=== PATIENT | female | born 1950 | race Caucasian/White ===

== ENCOUNTER 2022-05-11 10:02 | Outpatient (CLI) | payer MEDICARE, BC, SELFPAY ==
[2022-05-11 13:08] LABS: Albumin* 3.4 g/dL (3.3-5.0); Chloride* 91 mmol/L (96-114); Sodium* 127 mmol/L (135-149)
[2022-05-11 13:10] LABS: Creatinine* 0.6 mg/dL (0.5-1.5); Estimated Glomerular Filt Rate 94.13
[2022-05-11 13:11] LABS: Alanine Aminotransferase* 27 U/L (4-35); Alkaline Phosphatase* 67 U/L (40-150); Aspartate Amino Transferase* 27 U/L (12-35); Bilirubin Total* 0.8 mg/dL (0.1-1.5); Blood Urea Nitrogen* 33 mg/dL (7-30); Carbon Dioxide* 32 mmol/L (20-32); Glucose* 117 mg/dL (60-115); Total Protein* 5.9 g/dL (6.0-8.3)
[2022-05-11 13:12] LABS: Calcium* 8.5 mg/dL (8.4-10.6)
[2022-05-11 13:26] LABS: Potassium* 6.4 mmol/L (3.6-5.1)
== END 2022-05-11 10:03 | disposition home or self-care (01) ==
PROVIDERS: PCP Family Medicine; Visit Provider Family Medicine
DX: Z01.818 Encounter for other preprocedural examination (principal); I48.91 Unspecified atrial fibrillation; E87.1 Hypo-osmolality and hyponatremia; I10 Essential (primary) hypertension
CPT/HCPCS: 80053

== ENCOUNTER 2022-05-28 08:09 | Outpatient (CLI) | payer MEDICARE, BC, SELFPAY ==
[2022-05-28 10:06] LABS: Chloride* 88 mmol/L (96-114); Sodium* 125 mmol/L (135-149)
[2022-05-28 10:09] LABS: Blood Urea Nitrogen* 8 mg/dL (7-30); Carbon Dioxide* 33 mmol/L (20-32); Creatinine* 0.3 mg/dL (0.5-1.5); Estimated Glomerular Filt Rate 111 ml/min; Glucose* 126 mg/dL (60-115)
[2022-05-28 10:10] LABS: Calcium* 8.1 mg/dL (8.4-10.6)
== END 2022-05-28 08:10 | disposition home or self-care (01) ==
PROVIDERS: PCP Family Medicine; Visit Provider Family Medicine
DX: E87.5 Hyperkalemia (principal); R53.83 Other fatigue
CPT/HCPCS: 80048

== ENCOUNTER 2022-06-22 10:00 | Outpatient (CLI) | payer MEDICARE, BC, SELFPAY ==
[2022-06-22 12:48] LABS: Albumin* 3.5 g/dL (3.3-5.0); Chloride* 89 mmol/L (96-114); Sodium* 128 mmol/L (135-149)
[2022-06-22 12:51] LABS: Alanine Aminotransferase* 25 U/L (4-35); Alkaline Phosphatase* 91 U/L (40-150); Aspartate Amino Transferase* 23 U/L (12-35); Bilirubin Total* 0.5 mg/dL (0.1-1.5); Blood Urea Nitrogen* 18 mg/dL (7-30); Carbon Dioxide* 33 mmol/L (20-32); Creatinine* 0.5 mg/dL (0.5-1.5); Estimated Glomerular Filt Rate 98 ml/min; Glucose* 96 mg/dL (60-115); Potassium* 4.8 mmol/L (3.6-5.1)
[2022-06-22 12:52] LABS: Calcium* 8.5 mg/dL (8.4-10.6)
== END 2022-06-22 10:01 | disposition home or self-care (01) ==
LOC: NFLDREF 10:52
PROVIDERS: PCP Family Medicine; Visit Provider Family Medicine
DX: I10 Essential (primary) hypertension (principal); Z98.890 Other specified postprocedural states
CPT/HCPCS: 80053

== ENCOUNTER 2022-06-23 09:00 | Outpatient (RCR) | payer MEDICARE, BC, SELFPAY ==
[2022-05-31 14:38] LABS: Chloride* 91 mmol/L (96-114); Sodium* 130 mmol/L (135-149)
[2022-05-31 14:39] LABS: Potassium* 4.2 mmol/L (3.6-5.1)
[2022-05-31 14:41] LABS: Carbon Dioxide* 35 mmol/L (20-32); Creatinine* 0.5 mg/dL (0.5-1.5); Estimated Glomerular Filt Rate 98 ml/min
[2022-05-31 14:42] LABS: Blood Urea Nitrogen* 16 mg/dL (7-30); Calcium* 8.6 mg/dL (8.4-10.6); Glucose* 114 mg/dL (60-115)
== END 2022-08-11 14:01 | disposition home or self-care (01) ==
PROVIDERS: PCP Family Medicine; Visit Provider Family Medicine
DX: M54.9 Dorsalgia, unspecified (principal); Z51.89 Encounter for other specified aftercare
CPT/HCPCS: 36415; 80048; 97110; 97140; 97162; 97530

== ENCOUNTER 2022-06-29 12:23 | Outpatient (CLI) | payer MEDICARE, BC, SELFPAY ==
[2022-06-29 17:13] LABS: Chloride* 89 mmol/L (96-114); Creatinine* 0.6 mg/dL (0.5-1.5); Estimated Glomerular Filt Rate 94 ml/min; Potassium* 4.4 mmol/L (3.6-5.1); Sodium* 128 mmol/L (135-149)
[2022-06-29 17:14] LABS: Blood Urea Nitrogen* 22 mg/dL (7-30); Calcium* 8.4 mg/dL (8.4-10.6); Carbon Dioxide* 35 mmol/L (20-32); Glucose* 161 mg/dL (60-115)
== END 2022-06-29 12:24 | disposition home or self-care (01) ==
PROVIDERS: PCP Family Medicine; Visit Provider Family Medicine
DX: R30.0 Dysuria (principal); E87.1 Hypo-osmolality and hyponatremia
CPT/HCPCS: 80048; 87086

== ENCOUNTER 2022-07-07 13:56 | Outpatient (CLI) | payer MEDICARE, BC, SELFPAY ==
[2022-07-07 14:47] LABS: Chloride* 91 mmol/L (96-114); Potassium* 4.5 mmol/L (3.6-5.1); Sodium* 135 mmol/L (135-149)
[2022-07-07 14:50] LABS: Carbon Dioxide* 39 mmol/L (20-32); Creatinine* 0.6 mg/dL (0.5-1.5); Estimated Glomerular Filt Rate 94 ml/min
[2022-07-07 14:51] LABS: Blood Urea Nitrogen* 32 mg/dL (7-30); Calcium* 8.6 mg/dL (8.4-10.6); Glucose* 158 mg/dL (60-115)
== END 2022-07-07 13:57 | disposition home or self-care (01) ==
LOC: NFLDREF 14:02
PROVIDERS: PCP Family Medicine; Visit Provider Family Medicine
DX: E87.1 Hypo-osmolality and hyponatremia (principal); E66.9 Obesity, unspecified; I10 Essential (primary) hypertension
CPT/HCPCS: 80048

== ENCOUNTER 2022-07-27 09:53 | Outpatient (CLI) | payer MEDICARE, BC, SELFPAY ==
--- OUTSIDE RECORDS SUMMARY | 2022-08-19 21:49 | XMS_ITS | Clinical Summary ---
:1950 Author Organization [facility] Address [address] [place] [address] Care Team Providers Name Role Phone Unavailable Primary Care Provider Unavailable Source Comments Patient records contain information from all sites at [facility]. For routine questions regarding patient records, call [phone] during business hours, M-F 8:00 AM - 5:00 PM Central Time. Record requests for emergency care only can be directed to [phone] at any time.[facility] Allergies Active Allergy Reactions Severity Noted Date Comments Hydrochlorothiazide GI intolerance 07/20/2022 Hydrocortisone Other (see comments) 02/21/2019 Medications Medication Sig Dispensed Refills Start Date End Date Status metoprolol Take 50 mg by 0 02/21/2019 Acti ve succinate mouth. (TOPROL-XL) 100 mg 24 hr tablet dilTIAZem Take 240 mg by 0 04/11/2019 Acti ve (TIAZAC/TAZTIA XT) mouth. 240 mg ER capsule warfarin (COUMADIN) Take 10 mg by 0 Active 10 mg tablet mouth. lisinopriL Take 2 tablets by 0 02/12/2019 Active (PRINIVIL,ZESTRIL) mouth daily. 20 mg tablet calcium carbonate 2 (two) times a 0 Active (OS-ANGELA) 1,250 mg day. (500 mg calcium) tablet potassium chloride Take 2 tablets (20 360 tablet 3 07/20/2022 07/20/2023 Active (KLOR-CON M) 10 mEq mEq total) by ER tablet mouth 2 (two) times a day with meals. Use 2 BID if 40 mg of torsemide BID torsemide (DEMADEX) Take 2 tablets (40 360 tablet 3 07/20/2022 07/20/2023 Active 20 mg tablet mg total) by mouth 2 (two) times a day. Usual dose 40 mg in am 20 mg in PM with chf increase as directed Active Problems Problem Noted Date Hyponatremia 07/20/2022 Fracture T7-8 Wedge Compression Closed Initial 022 Hypertension And Chronic Kidney Disease Stage 1 2021 Anticoagulant Therapy 07/20/2022 Other Heart Failure 07/20/2022 Loss Hearing Sensorineural Bilateral 06/14/2019 Atrial Fibrillation Longstanding Persistent 02/20/2019 Encounters Date Type Specialty Care Team Description 07/20/2022 External Outreach Nephrology and [place], Hyponatr emia (Primary Dx); Hypertension Ion Tamayo [...] e / Group Dates MEDICARE MEDICARE A [id number] 2013-Pres [address] [place] [address] BLUE CROSS BCBS [place] [id number] 2021-Pres [phone] [address] Cost Share BLUE SHIELD BLUE COST ent [phone] [place] [address]
--- OUTSIDE RECORDS SUMMARY | 2022-08-19 21:49 | XMS_ITS | Encounter Summary ---
:1950 Author Organization [facility] Address [address] [place] [address] Care Team Providers Name Role Phone Unavailable Primary Care Provider Unavailable Reason for Visit Appointment Request (Routine) - Closed Specialty Diagnoses / Procedures Referred By Contact Refer red To Contact Nephrology and Yoselyn Dewitt, Hypertension [address] [place] [address] Referral ID Status Reason Start Date Expiration Date Visits Requ ested Visits Authorized [id number] Closed 07/14/2022 07/14/2023 1 Encounter Details Date Type Department Care Team Description 07/20/2022 External Outreach Division of Arthur Donahue (Primary Dx); Nephrology and Ion Tamayo Jr., Other Heart Failure ([facility]); Hypertension in D.O. Atrial Fibrillation Longstanding Persist ent ([facility]); [place], [place] [address] [facility] Hypertension And Chronic Kidney Disease Stage 1; [address] [place], [place] Fracture T7-8 Wedge Compress ion Closed Initial ([facility]); [place] [address] Anticoagulant Therapy; [id number] Loss Hearing Sensorineural B ilateral Social History [...] Provider: DR Dewitt SUBJECTIVE REASON FOR VISIT [place] [facility] Consultation regards hyponatremia, [...] back in 2005 when I note that [place] records demonstrate serumsodium of 136 mEq per [...] in a supervised living environment her close friend/heating mechanic, Natalie, a retired pharmacist helps care for her. She orchestrate the patient's medications. 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 There is some documentation [...] cardiorenal perspective. #3 Atrial Fibrillation Longstanding Persistent ([facility]) Her heart rate is well controlled, she is on oral anticoagulation with an INR of 1.8. 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 Please see above discussion #5 Fracture T7-8 Wedge Compression Closed Initial ([facility]) Some of her acute pain may be [...] Failure (HCC) Atrial Fibrillation Longstanding Persist ent ([facility]) Hypertension And Chronic Kidney Disease Stage 1 Fracture T7-8 Wedge Compression Closed I nitial (HCC) Anticoagulant Therapy Loss Hearing Sensorineural Bilateral documented in this encounter
--- OUTSIDE RECORDS SUMMARY | 2022-08-19 21:50 | XMS_ITS | Clinical Summary ---
:1950 Author Organization [facility] [place] [address] Care Team Providers Name Role Phone Yoselyn Dewitt MD Primary Care Provider [phone] Allergies Active Allergy Reactions Severity Noted [...] Group MEDICARE PART A MEDICARE PART A [id number] 2013-Presen ATTN: CLAIMS - HB USE ONLY HB ONLY t [address] [place] [address] MEDICARE PART B MEDICARE PART B [id number] 2013-Presen ATTN: CLAIMS - HB USE ONLY HB ONLY t [address] [place] [address] BLUE CROSS [employer] [id number] 2021-Pres [address] [address] [place], [place] ONLY [id number] (Work) [address] Advance Directives Latest Code Status on File [...] 11:48 AM 02/21/2019 5:24 PM Care Teams Seismic Survey Assistant Relationship Specialty Start Date End Date Yoselyn Dewitt MD PCP - General Family Practice 02/21/191999 [place] [address]
== END 2022-07-27 09:54 | disposition home or self-care (01) ==
LOC: AMB 08-19 21:48
PROVIDERS: PCP Family Medicine; Visit Provider Family Medicine
DX: R53.1 Weakness (principal)
CPT/HCPCS: A0998

== ENCOUNTER 2022-08-02 08:59 | Outpatient (CLI) | payer MEDICARE, BC, SELFPAY ==
--- OUTSIDE RECORDS SUMMARY | 2022-08-02 09:13 | XMS_ITS | Clinical Summary ---
:1950 Author Organization [facility] [place] [address] Care Team Providers Name Role Phone Yoselyn Dewitt MD Primary Care Provider [phone] Allergies Active Allergy Reactions Severity Noted Date Comments Hydrocortisone *Unknown 02/21/2019 Medications Medication Sig Dispensed Refills Start Date End Date Status albuterol HFA Every 4 Hours as 0 06/25/2018 Active (PROVENTIL HFA) 90 needed mcg/actuation inhaler calcium carbonate Twice A Day 0 Active (OS-ANGELA 500) 500 mg calcium (1,250 mg) tablet lisinopril (PRINIVIL; Take 1 tablet by 0 02/12/2019 Active ZESTRIL) 20 mg tablet mouth once daily. digoxin (LANOXIN) 125 Take 1 tablet by 0 02/12/2019 Active mcg tablet mouth once daily. metoprolol succinate Take 0.5 tablets 0 02/21/2019 Active (TOPROL XL) 100 mg by mouth once Sustained-Release daily. tabletIndications: Persistent atrial fibrillation (HC), Hypertension, unspecified type amLODIPine (NORVASC) 3 03/19/2019 Active 10 mg tablet diltiazem CD (CARDIZEM Take 1 capsule by 30 capsule 2 04/11/20 19 Active CD) 240 mg extended mouth once daily release 24 hr before a meal. capsuleIndications: Persistent atrial fibrillation (HC), Hypertension, unspecified type torsemide (DEMADEX) 20 Take 1 tablet by 0 01/13/2021 Active mg tabletIndications: mouth 2 times Persistent atrial daily. fibrillation (HC) polyethylene glycoL Mix 1 scoop in 0 Active (Miralax) 17 gram/dose liquid then take powder by mouth once daily if needed for Constipation. warfarin (COUMADIN) 10 Take 10 mg by 0 Active mg tablet mouth once daily. / warfarin (COUMADIN) Take 7.5 mg by 0 Active 7.5 mg tablet mouth once daily. Sun/Tue/Tue/Tue/S at Active Problems Problem Noted Date Sensorineural hearing loss, bilateral 06/14/2019 Persistent atrial fibrillation 02/20/2019 Hypertension 02/20/2019 Encounters Date Type Specialty Care Team Description 05/12/2022 Anesthesia Event Parth Celis MD 05/12/2022 Surgery Arcenio Sanchez ENDOSCOPIC R ETROGRADE MD Buzz CHOLANGIOPANCRE ATOGRAPHY 05/12/2022 Hospital Arcenio Sanchez Choledocholi thiasis Encounter MD Buzz 05/12/2022 Travel from Last 3 Months Immunizations Name Administration Dates Next Due Influenza, Inactivated AIIV4 (Age 65+ Years) Preserv 021 Free Social History Tobacco Use Types Packs/Day Years Used Date Never Smoker Smokeless Tobacco: Never Used Tobacco Cessation: Counseling Given: Yes Alcohol Use Standard Drinks/Week Comments No 0 (1 standard drink = 0.6 oz pure alcoho l) Sex Assigned at Date Recorded Not on file Obstetrics History Last Filed Vital Signs Vital Sign Reading Time Taken Comments Blood Pressure 183/77 05/12/2022 11:45 AM CDT Pulse 84 05/12/2022 11:45 AM CDT Temperature 36.5 ??C (97.7 ??F) 05/12/2022 11:00 AM CDT Respiratory Rate 20 05/12/2022 11:45 AM CDT Oxygen Saturation 96% 05/12/2022 11:45 AM CDT Inhaled Oxygen Concentration - - Weight 78.5 kg (173 lb) 05/12/2022 7:53 AM CDT Height 149.9 cm (4' 11) 05/12/2022 7:53 AM CDT Body Mass Index 34.94 05/12/2022 7:53 AM CDT Plan of Treatment Health Maintenance Due Date Last Done Comments Tdap 1959 Depression screening for age 12+ 1960 Hepatitis C screening for age 18-79 1966 Tetanus booster 1968 Colonoscopy through age 75 1993 Lipids for age 45-75 1993 Mammogram for age 45-75 1993 Zoster (shingles) series for age 50+ 1998 (1 of 2) DEXA/DXA scan for age 65+ 2013 Medicare Wellness for age 65+ 2013 Pneumococcal series for age 65+ (1 - 2013 PCV) BMI (ht and wt on same day) for age 0111/15/2019 11/15/2018, 12/13/2015 18+ Influenza for age 65+ 07/15/2022 08/18/2021 COVID-19 vaccine series (4 - Booster 07/18/2022 03/17/2022, 09/08/2021, for Pfizer series) 12/30/2020 Procedures Procedure Name Priority Date/Time Associated Diagnosis Comme nts XR ERCP BILIARY ONLY Routine 05/12/2022 Choledocholithiasis Results for 10:51 AM CDT this procedure are in the results section. ENDOTRACHEAL TUBE Routine 05/12/2022 Results fo r 10:22 AM CDT this procedure are in the results section. ENDOTRACHEAL TUBE Routine 05/12/2022 Results fo r 10:22 AM CDT this procedure are in the results section. ENDOTRACHEAL TUBE Routine 05/12/2022 Results fo r 10:22 AM CDT this procedure are in the results section. ENDOSCOPIC ULTRASOUND youth care worker 2 05/12/2022 See MD notes 10:02 AM CDT ENDOSCOPIC RETROGRADE Tier 2 05/12/2022 See notes CHOLANGIOPANCREATOGRAPHY 10:02 AM CDT ENDOSCOPY 05/12/2022 Results for 9:51 AM CDT this procedure are in the results section. POTASSIUM STAT 05/12/2022 Results for 8:54 AM CDT this procedure are in the results section. SODIUM STAT 05/12/2022 Results for 8:54 AM CDT this procedure are in the results section. LIPASE Preop 05/12/2022 Results for 8:54 AM CDT this procedure are in the results section. HEPATIC FUNCTION PANEL Preop 05/12/2022 Resul ts for 8:54 AM CDT this procedure are in the results section. ENDOSCOPY 05/12/2022 Results for 8:25 AM CDT this procedure are in the results section. from Last 3 Months Results XR ERCP BILIARY ONLY (05/12/2022 10:51 AM CDT) Anatomical Region Laterality Modality GALLBLADDER, PANCREAS, LIVER Radio Fluor oscopy Specimen (Source) Anatomical Collection Method Collection Time Re ceived Time Location / / Volume Laterality 05/12/2022 11:01 AM CDT Impressions 05/12/2022 11:01 AM CDT ERCP as detailed above. Dictated by Yunier Meléndez MD @ May 12 2022 11:01AM (Electronically Signed) ?? Narrative 05/12/2022 11:01 AM CDT For Patients: ??As a result of the Cures Act, medical imaging exams and procedure report s are released immediately into your [facility] medical record. ??You may view this report before your referring provider. ??If you have questions, please contact your health care provider. INDICATION: Common bile duct stone. FINDINGS: Multiple images from an ERCP have been o btained. Please see the endoscopy report. The common bile duct is dilated. There are multiple filling defects identified. There has been placement of a balloon fo r removal of common bile duct stones. Fi nal image demonstrates a dilated common bile duct but no significant filling defects. Fluoroscopy time: 2 minutes and 22 secon ds. Procedure Note Yunier Meléndez MD - 05/12/2022Format ting of this note might be different from the original. For Patients: As a result of the Cures Act, medical imaging exams and procedure reports are released immediately into your electronic medical record. You may view this report before your referring provider. If you have questions, please contact the [facility] health care provider. INDICATION: Common bile duct stone. FINDINGS: Multiple images from an ERCP have been o btained. Please see the endoscopy report. The common bile duct is dilated. There are multiple filling defects identified. There has been placement of a balloon for removal of common bile duct stones. Final image dem onstrates a dilated common bile duct but no significant filling defects. Fluoroscopy time: 2 minutes and 22 secon ds. IMPRESSION: ERCP as detailed above. Dictated by Yunier Meléndez MD @ May 12 2022 11:01AM (Electronically Signed) Arcenio Sanchez MD FLUOROSCOPY HCHG TUBE PR1, HCHG KIT CO2 DETECTOR PR5, HCHG STYLET PR1 (05/12/2022 10:22 AM CDT) Narrative Clau Curtis CRNA - 05/12/2022 10:22 AM CDT Clau Curtis CRNA ? 05/12/2022 10:22 AM Procedure: ETT Patient location during procedure: proce dure room ETT Properties Mask Ventilation: easy Final Technique: direct laryngoscopy Type: straight Location: oral Cuffed: yes Tube Size: 7.0 mm Stylet: yes Laryngoscope Blade: Mac Blade Size: 3 Cormack-Lehane Grade View: 1 Insertion Attempts: 1 Placement Verification: auscultation, en d tidal CO2, symmetrical chest wall movement and cuff palpation Assessment: pharynx clear, atraumatic an d dentition unchanged Secured at: 22 Measured From: lips Electronically signed by Praveen Curtis CRNA ? Parth Celis MD ANESTHESIA PX NOTE ORDERA BLES ENDOSCOPY (05/12/2022 9:51 AM CDT) Specimen (Source) Anatomical Collection Method Collection Time Re ceived Time Location / / Volume Laterality 05/12/2022 9:51 AM CDT Narrative This result has an attachment that is no t available. Transcriptions Arcenio Sanchez MD - 05/12/2022 11:11 AM CDT [facility] Patient Name: Lucila Mcgregor re Date: 05/12/2022 Gender: Female Date of : 1950 Admit Type: Ambulatory Procedure: ERCP Proceduralist: MD [facility] Indications/Pre-Op Diagnosis: Bile duct stone(s) Medications: General Anesthesia Procedure Description: Risk of bleeding, infection, perforatio n, pancreatitis, need for surgery, remote chance of and alt ernatives were discussed, and the patient gave informed consent. The [facility]-[id number] endoscope was pas sed through the mouth, and advanced to the duodenum and used to in ject contrast into the bile duct. The ERCP was accomplished without diffi culty. The patient tolerated the procedure well. Complications: No immediate complication s. Estimated Blood Loss & Specimen: Estimated blood loss: none. Specimen collected: None Findings: The scope was passed under direct visio n through the upper GI tract. The entire examined stomach was normal. The examined duodenum was normal. The major papilla was normal. The bile duct was deeply cannulated with the short-nosed traction sphincterotome and guidewire. Contrast was injected. I personally interpreted the bile duct images. There was brisk flow of contrast through the ducts. Gisele ge quality was adequate. Contrast extended to the hepatic ducts. The lowe r third of the main bile duct contained two stones, the largest of wh ich was 10 mm in diameter. Biliary sphincterotomy was made with a traction (standard) sphincterotome. There was no post-sphin cterotomy bleeding. The biliary tree was swept with a 9 mm balloon star ting at the bifurcation. Two stones were removed. No stones remained . Impressions/Post-Op Diagnosis: - Choledocholithiasis was found. Comple te removal was accomplished by biliary sphincterotomy and balloon extr action. Recommendation: - Watch for pancreatitis, bleeding, per foration, and cholangitis. Arcenio Sanchez MD 05/12/2022 11:11:42 AM This report has been signed electronical ly. Note Initiated On: 05/12/2022 9:51 AM Arcenio Sanchez MD PROCEDURE ORD (ABNORMAL) SODIUM (05/12/2022 8:54 AM CDT) athologist Signature SODIUM 130 (L) 135 - 145 05/12/2022 [facility] mmol/L 9:26 AM [facility] Specimen Anatomical Collection Method Collection Time Receive d Time (Source) Location / / Volume Laterality Blood BLOOD SPECIMEN / Butterfly / 05/12/2022 8:54 AM 05/12 9:01 Unknown Unknown CDT AM CDT Casimiro Celis MD CHEMISTRY Performing Organization Address City/[facility]/ZIP Code Phon e Number [facility] [phone] [place] [id number] LABORATORY-[facility] 2000 LABORATORY (ABNORMAL) POTASSIUM (05/12/2022 8:54 AM CDT) athologist Signature POTASSIUM 5.1 (H) 3.5 - 5.0 05/12/2022 [facility] mmol/L 9:26 AM CD[facility] Specimen Anatomical Collection Method Collection Time Receive d Time (Source) Location / / Volume Laterality Blood BLOOD SPECIMEN / Butterfly / 05/12/2022 8:54 AM 05/12 9:01 Unknown Unknown CDT AM CDT Casimiro Celis MD CHEMISTRY Performing Organization Address City/State/ZIP Code Phon e Number [facility] [address] [place] [id number] LABORATORY-CENTRAL 2000 LABORATORY LIPASE (05/12/2022 8:54 AM CDT) athologist Signature LIPASE 20.1 8.0 - 78.0 05/12/2022 [facility] IU/L 9:33 AM CDT LABORATORY[facility] LABORATORY Specimen Anatomical Collection Method Collection Time Receive d Time (Source) Location / / Volume Laterality Blood BLOOD SPECIMEN / Butterfly / 05/12/2022 8:54 AM 05/12 9:01 Unknown Unknown CDT AM CDT Arcenio Sanchez MD CHEMISTRY Performing Organization Address City/State/ZIP Code Phon e Number [facility] [address] [place] [address] LABORATORY-[facility]ENTRAL 2000 LABORATORY HEPATIC FUNCTION PANEL (05/12/2022 8:54 AM CDT) P athologist Signature ALBUMIN 3.5 3.2 - 4.6 05/12/2022 [facility] g/dL 9:33 AM CDT LABORATORY-[facility] LAB[facility]ATORY PROTEIN,TOTAL 6.3 6.0 - 8.0 05/12/2022 [facility] g/dL 9:33 AM CDT [facility] GLOBULIN 2.8 2.0 - 3.7 05/12/2022 [facility] g/dL 9:33 AM CDT [facility] A/G RATIO 1.3 1.0 - 2.0 05/12/2022 [facility] 9:33 AM CDT [facility]ATORY[facility] BILIRUBIN,TOTAL 0.9 0.2 - 1.2 05/12/2022 [facility] mg/dL 9:33 AM CDT LAB[facility]ATORY[facility] BILIRUBIN,DIRECT 0.4 0.1 - 0.5 05/12/2022 [facility] mg/dL 9:33 AM CDT [facility]AT[facility] BILIRUBIN,INDIRE 0.5 0.2 - 0.8 05/12/[address] [facility] [address] mg/dL 9:33 AM CDT LAB[facility]ATORY[facility] ALK PHOSPHATASE 67 50 - 136 05/12/2022 [facility] IU/L 9:33 AM CDT [facility] ALT (SGPT) 25 8 - 45 05/12/2022 [facility] IU/L 9:33 AM CDT [facility] AST (SGOT) 17 2 - 40 05/12/2022 [facility] IU/L 9:33 AM CDT LAB[facility]ATORY[facility] Specimen Anatomical Collection Method Collection Time Receive d Time (Source) Location / / Volume Laterality Blood BLOOD SPECIMEN / Butterfly / 05/12/2022 8:54 AM 05/12 9:01 Unknown Unknown CDT AM CDT Arcenio Sanchez MD CHEMISTRY Performing Organization Address City/State/ZIP Code Phon e Number [facility] [address] [place] [address] LABORATORY-CENTRAL 2000 LABORATORY ENDOSCOPY (05/12/2022 8:25 AM CDT) Specimen (Source) Anatomical Collection Method Collection Time Re ceived Time Location / / Volume Laterality 05/12/2022 8:25 AM CDT Narrative This result has an attachment that is no t available. Transcriptions Arcenio Sanchez MD - 05/12/2022 11:08 AM CDT [facility] Patient Name: Lucila Mcgregor re Date: 05/12/2022 Gender: Female Date of : 1950 Admit Type: Ambulatory Procedure: Upper EUS Proceduralist: MD Mary Cohen [facility] [place] Indications/Pre-Op Diagnosis: Suspected choledocholithiasis Medications: General Anesthesia Procedure Description: Risk of bleeding, infection, perforatio n, pancreatitis, need for surgery, remote chance of and alt ernatives were discussed, and the patient gave informed consent. The endoscope was introduced through th e mouth, and advanced to the third part of duodenum. The upper EUS w as accomplished without difficulty. The patient tolerated the p rocedure well. Complications: No immediate complication s. Estimated Blood Loss & Specimen: Estimated blood loss: none. Specimen collected: None Findings: ENDOSCOPIC FINDING: : The entire examined stomach was normal. The examined duodenum was normal. ENDOSONOGRAPHIC FINDING: : There was no sign of significant endoso nographic abnormality in the ampulla. No masses were identified. Two stones were visualized endosonograp hically in the common bile duct. The stones measured up to 10 mm in grea test dimension. The stones were oval. They were hyperechoic and charact erized by shadowing. There was no sign of significant endoso nographic abnormality in the left lobe of the liver and in the right lobe of the liver. No focal pathology was identified. There was no sign of significant endoso nographic abnormality in the pancreatic head. The pancreatic duct me asured up to 3 mm in diameter. No masses, no cysts. Impressions/Post-Op Diagnosis: - Two stones were visualized endosonogr aphically in the common bile duct. Recommendation: - Perform an ERCP. Arcenio Sanchez MD 05/12/2022 11:07:54 AM This report has been signed electronical ly. Note Initiated On: 05/12/2022 8:25 AM Arcenio Sanchez MD PROCEDURE ORD from Last 3 Months Insurance Payer Benefit Plan / Subscriber ID Effective Dates Phone Addre ss Type Group MEDICARE PART A MEDICARE PART A [id number] 2013-Presen ATTN: CLAIMS - HB USE ONLY HB ONLY t [address] [place] [address] MEDICARE PART B MEDICARE PART B [id number] 2013-Presen ATTN: CLAIMS - HB USE ONLY HB ONLY t [address] [place] [address] [employer] BL[employer] [id number] 2021-[place] [address] [address] [address] [place], [place] ONLY [id number] Advance Directives Latest Code Status on File Code Status Date Activated Date Inactivated Comments Full Code 05/12/2022 7:55 AM 05/12/2022 2:45 PM Code Status Discussion: Unable to Assess Preferences, Provid er to review later Full Code 05/12/2022 7:55 AM 05/12/2022 7:55 AM Code Status Discussion: Unable to Assess Preferences, Provid er to review later Full Code 02/21/2019 11:48 AM 02/21/2019 5:24 PM Care Teams Coal Hauler Relationship Specialty Start Date End Date Yoselyn Dewitt MD PCP - General Family Practice 02/21/191999 [place] [id number]
--- NOTE | 2022-08-02 09:15 | CRLHL7_ITS ---
For Patients: As a result of the Century Cures Act, medical imaging exams and procedure reports are released immediately into your electronic medical record. You may view this report before your referring provider. If you have questions, please contact your health care provider. Indication: Back pain, concern for thoracic spine fracture Technique: Multiplanar, multisequence MRI of the thoracic spine, obtained without contrast. Comparison: Thoracic spine x-ray 05/28/2022 Findings: T8 compression fracture with greater than 50 percent vertebral height loss, and approximately 8 millimeters central cortical retropulsion. Severe spinal canal stenosis, with focal cord compression, but no overt cord signal abnormality at this time. Severe right T8-9 neural foramina stenosis. Focal fluid signal changes within the anterior T8 vertebral body, consistent with osteonecrosis. Inferior endplate deformity and bony edema of T7 with anterior wedge configuration. Anterosuperior corner deformity and bony edema of T9 without significant height loss. No other acute fractures. No other cortical retropulsion. Presumed intraosseous hemangioma right posterior aspect of T5. Trace prevertebral edema from T7-9. No focal fluid collection or epidural hematoma. No other areas of critical spinal canal or neural foramina stenosis. Impression: 1. T8 compression fracture with 8 mm cortical retropulsion, severe spinal canal stenosis and focal cord compression. No overt cord signal abnormality identified at this time. 2. Signal changes within the collapsed anterior T8 vertebral body, consistent with avascular necrosis. 3. Bony edema and cortical defects of the T7 inferior endplate and T9 anterosuperior corner, sequela of T8 compression fracture. 4. Trace prevertebral edema T7-9. No epidural hematoma. No other critical spinal canal stenosis. Dictated by Lore Presley MD @ 08/02/2022 12:19:08 PM (Electronically Signed)
== END 2022-08-02 09:00 | disposition home or self-care (01) ==
LOC: MRI 09:04
PROVIDERS: PCP Family Medicine; Visit Provider Orthopaedic Surgery
DX: M54.9 Dorsalgia, unspecified (principal); M48.54XA Collapsed vertebra, not elsewhere classified, thoracic region, initial encounter for fracture
CPT/HCPCS: 72146

== ENCOUNTER 2022-08-10 23:02 | Outpatient (CLI) | payer MEDICARE, BC, SELFPAY ==
--- OUTSIDE RECORDS SUMMARY | 2022-08-24 06:53 | XMS_ITS | Clinical Summary ---
:1950 Author Organization [facility] Address [address] [place] [address] Care Team Providers Name Role Phone Unavailable Primary Care Provider Unavailable Source Comments Patient records contain information from all sites at [facility]. For routine questions regarding patient records, call [phone] during business hours, M-F 8:00 AM - 5:00 PM Central Time. Record requests for emergency care only can be directed to [phone] at any time.[facility] Allergies Active Allergy Reactions Severity Noted [...] Team Description 07/20/2022 External Outreach Nephrology and [place], Hyponatr emia (Primary Dx); Hypertension Ion Tamayo [...] e / Group Dates MEDICARE MEDICARE A [id number] 2013-Pres [address] [place] [address] BLUE CROSS BCBS [place] [id number] 2021-Pres [phone] PO KISHAN X Cost Share BLUE SHIELD BLUE COST ent [phone] [place] [address]
--- OUTSIDE RECORDS SUMMARY | 2022-08-24 06:53 | XMS_ITS | Encounter Summary ---
:1950 Author Organization [facility] Address [address] [place] [address] Care Team Providers Name Role Phone Unavailable Primary Care Provider Unavailable Reason for Visit Appointment Request (Routine) - Closed Specialty Diagnoses / Procedures Referred By Contact Refer red To Contact Nephrology and Yoselyn Dewitt, Hypertension Cristin [address] [place] [address] Referral ID Status Reason Start Date Expiration Date Visits Requ ested Visits Authorized [id number] Closed 07/14/2022 07/14/2023 1 Encounter Details Date Type Department Care Team Description 07/20/2022 External Outreach Division of Arthur Donahue (Primary Dx); Nephrology and Ion Tamayo Jr., Other Heart Failure ([facility]); Hypertension in D.O. Atrial Fibrillation Longstanding Persist ent ([facility]); [place], [place] [address] [facility] Hypertension And Chronic Kidney Disease Stage 1; [address] [place], [place] Fracture T7-8 Wedge Compress ion Closed Initial ([facility]); [place] [address] Anticoagulant Therapy; [id number] Loss Hearing Sensorineural B ilateral Social History [...] Provider: DR Dewitt SUBJECTIVE REASON FOR VISIT [facility] Consultation regards hyponatremia, [...] back in 2005 when I note that [place] records demonstrate serumsodium of 136 mEq per [...] in a supervised living environment her close friend/size stamper, Natalie, a retired pharmacist helps care for her. She orchestrate the patient's medications. 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 There is some documentation [...] cardiorenal perspective. #3 Atrial Fibrillation Longstanding Persistent ([facility]) Her heart rate is well controlled, she is on oral anticoagulation with an INR of 1.8. 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 Please see above discussion #5 Fracture T7-8 Wedge Compression Closed Initial ([facility]) Some of her acute pain may be [...] Failure (HCC) Atrial Fibrillation Longstanding Persist ent ([facility]) Hypertension And Chronic Kidney Disease Stage 1 Fracture T7-8 Wedge Compression Closed I nitial (HCC) Anticoagulant Therapy Loss Hearing Sensorineural Bilateral documented in this encounter
--- OUTSIDE RECORDS SUMMARY | 2022-08-24 06:53 | XMS_ITS | Clinical Summary ---
:1950 Author Organization [facility] [place] [address] Care Team Providers Name Role Phone Yoselyn Dewitt MD Primary Care Provider [phone] Allergies Active Allergy Reactions Severity Noted [...] Group MEDICARE PART A MEDICARE PART A [id number] 2013-Presen ATTN: CLAIMS - HB USE ONLY HB ONLY t [address] [place] [address] MEDICARE PART B MEDICARE PART B [id number] 2013-Presen ATTN: CLAIMS - HB USE ONLY HB ONLY t [address] [place] [address] BLUE CROSS BLUE [place]OSS [id number] 2021-Pres [address] [address] [address] [place], [place] ONLY [phone] (Work) [id number] Advance Directives Latest Code Status on File [...] 11:48 AM 02/21/2019 5:24 PM Care Teams [employer] Truck Driver Relationship Specialty Start Date End Date Yoselyn Dewitt MD PCP - General Family Practice 02/21/[address] [place] [address]
== END 2022-08-10 23:03 | disposition home or self-care (01) ==
LOC: AMB 08-24 06:51
PROVIDERS: PCP Family Medicine; Visit Provider Emergency Medicine Emergency Medical Services
DX: R53.1 Weakness (principal)
CPT/HCPCS: A0998

== ENCOUNTER 2022-08-18 10:36 | Outpatient (CLI) | payer MEDICARE, BC, SELFPAY ==
--- OUTSIDE RECORDS SUMMARY | 2022-08-18 10:39 | XMS_ITS | Clinical Summary ---
:1950 Author Organization [facility] Address [address] [place] [address] Care Team Providers Name Role Phone Unavailable Primary Care Provider Unavailable Source Comments Patient records contain information from all sites at [facility]. For routine questions regarding patient records, call [phone] during business hours, M-F 8:00 AM - 5:00 PM Central Time. Record requests for emergency care only can be directed to [phone] at any time.[facility] Allergies Active Allergy Reactions Severity Noted Date Comments Hydrochlorothiazide GI intolerance 07/20/2022 Hydrocortisone Other (see comments) 02/21/2019 Medications Medication Sig Dispensed Refills Start Date End Date Status metoprolol Take 50 mg by 0 02/21/2019 Acti ve succinate mouth. (TOPROL-XL) 100 mg 24 hr tablet dilTIAZem Take 240 mg by 0 04/11/2019 Acti ve (TIAZAC/TAZTIA mouth. XT) 240 mg ER capsule warfarin Take 10 mg by 0 Active (COUMADIN) 10 mg mouth. tablet lisinopriL Take 2 tablets 0 02/12/2019 Act ryan (PRINIVIL,ZESTRI by mouth L) 20 mg tablet daily. calcium 2 (two) times 0 Active carbonate a day. (OS-ANGELA) 1,250 mg (500 mg calcium) tablet potassium Take 2 tablets 360 tablet 3 07/20/2022 Act ryan chloride (20 mEq total) 3 (KLOR-CON M) 10 by mouth 2 mEq ER tablet (two) times a day with meals. Use 2 BID if 40 mg of torsemide BID torsemide Take 2 tablets 360 tablet 3 07/20/2022 Act ryan (DEMADEX) 20 mg (40 mg total) 3 tablet by mouth 2 (two) times a day. Usual dose 40 mg in am 20 mg in PM with chf increase as directed torsemide Take 2 tablets 0 01/13/2021 Disc ontinued (DEMADEX) 20 mg by mouth 2 2 (Re order) tablet (two) times a day. Active Problems Problem Noted Date Hyponatremia 07/20/2022 Fracture T7-8 Wedge Compression Closed Initial 022 Hypertension And Chronic Kidney Disease Stage 1 2021 Anticoagulant Therapy 07/20/2022 Other Heart Failure 07/20/2022 Loss Hearing Sensorineural Bilateral 06/14/2019 Atrial Fibrillation Longstanding Persistent 02/20/2019 Encounters Date Type Specialty Care Team Description 07/20/2022 External Outreach Nephrology and Anderson, Hyponatr emia (Primary Dx); Hypertension Ion Tamayo Jr., Other Heart Fa ilure (HCC); D.O. Atrial Fibrilla tion Longstanding Persistent (HCC); Hypertension An d Chronic Kidney Disease Stage 1; Fracture T7-8 W edge Compression Closed Initial (HCC); Anticoagulant T herapy; Loss Hearing Se nsorineural Bilateral from Last 3 Months Social History Tobacco Use Types Packs/Day Years Used Date Smoking Tobacco: Never Assessed Sex Assigned at Date Recorded Not on file Last Filed Vital Signs Vital Sign Reading Time Taken Comments Blood Pressure 138/78 07/20/2022 4:33 PM CDT Pulse 88 07/20/2022 4:33 PM CDT Temperature - - Respiratory Rate 16 07/20/2022 4:33 PM CDT Oxygen Saturation 90% 07/20/2022 4:33 PM CDT Inhaled Oxygen Concentration - - Weight 81.1 kg (178 lb 12.7 oz) 07/20/2022 4:33 PM CDT Height 149.8 cm (4' 10.98) 07/20/2022 4:33 PM CDT Body Mass Index 36.14 07/20/2022 4:33 PM CDT Plan of Treatment Health Maintenance Due Date Last Done Comments Bone Density Scan (Osteoporosis 1950 Screen) CT Colonography 1950 Cologuard 1950 Colonoscopy 1950 Colorectal Cancer Screening 1950 FIT 1950 Fasting Glucose for Diabetes 1950 Screening Hepatitis C Screening 1950 Mammogram 1950 Zoster Vaccines (1 of 2) 1998 Creatinine Level 02/22/2020 02/21/2019 Depression Screening (Annual 11/14/2021 PHQ-2) Fall Risk Screen (Annual) 11/14/2021 DTaP,Tdap,and Td Vaccines (2 - Td 12/21/2021 12/21/2011 or Tdap) COVID-19 Vaccine (4 - Booster for 05/12/2022 03/17/2022, , Pfizer series) 12/30/2020 Influenza Vaccine (#1) 2022 08/18/2021, 08/29/2020, 08/14/2019, Additional history exists Potassium Level 05/12/2023 05/12/2022, 02/21/2019 Sodium Level 05/12/2023 05/12/2022 Office Visit for Blood Pressure 07/20/2023 07/20/2022 Check / Re-check Pneumococcal vaccine (65+ years) Completed 08/13/2015, 07/2014 Insurance Payer Benefit Plan Subscriber ID Effective Phone Address Typ e / Group Dates MEDICARE MEDICARE A [id number] 2013-Pres [address] [place] [address] BLUE CROSS BCBS [place] [id number] 2021-Pres [phone] [address] X Cost Share BLUE SHIELD BLUE COST ent [phone] [place] [address]
--- OUTSIDE RECORDS SUMMARY | 2022-08-18 10:39 | XMS_ITS | Clinical Summary ---
:1950 Author Organization [facility] [employer] [facility] [place] [address] Care Team Providers Name Role Phone Yoselyn Dewitt MD Primary Care Provider [phone] Allergies Active Allergy Reactions Severity Noted Date Comments Hydrochlorothiazide GI Upset 07/20/2022 Hydrocortisone *Unknown 02/21/2019 Medications Medication Sig Dispensed [...] mg tablet mouth once daily. Sun/Tue/Tue/Tue/S at potassium chloride Take 10 mEq by 0 06/22/2022 Active (KLOR-CON 10; K-TAB) mouth. 10 mEq Controlled-Release tablet Active Problems Problem Noted Date Sensorineural hearing loss, bilateral 06/14/2019 Persistent atrial fibrillation 02/20/2019 Hypertension 02/20/2019 Encounters Date Type Specialty Care Team Description 08/11/2022 Office Visit Daquan Cool MD Co nsult (Spine) 08/11/2022 Travel 08/02/2022 Orders Only Scanner <No scans attac hed> from Last 3 Months Immunizations Name Administration Dates Next Due Influenza A (H1N1), Inactivated (Age 1109/15/2009 >=3 Years) Influenza, High-dose Inactivated 08/14/2019, 08/16/2018, , 08/17/2016, 08/13/2015 Influenza, High-dose Quadrivalent 08/29/2020 Inactivated Influenza, IIV3 (Age 6-35 mos) 08/28/2013, 08/09/2012, 08/16, 08/17/2010 Influenza, IIV3 (Age >=3 years) 08/16/2018, 08/10/2017, 02/2016, 08/13/2015, 08/28/2011, 08/28/2009 Influenza, IIV4 08/11/2014, 09/15/2009 Influenza, Inactivated AIIV4 (Age 65+ 08/18/2021 Years) Preserv Free Pneumococcal Poly,23-Valent 04/22/2014 (Pneumovax) Pneumococcal conj 13-Valent (Prevnar 08/13/2015 13) Tdap 12/21/2011, 12/28/2007 Zoster, Unspecified Formulation 12/10/2009 Family History Medical History Relation Name Comments No Known Problems Father No Known Problems Mother Relation Name Status Comments Father Mother Social History Tobacco Use Types Packs/Day Years Used Date Never Smoker Smokeless Tobacco: Never Used Tobacco Cessation: Counseling Given: Yes Alcohol Use Standard Drinks/Week Comments No 0 (1 standard drink = 0.6 oz pure alcoho l) Sex Assigned at Date Recorded Not on file COVID-19 Exposure Response Date Recorded In the last 10 days, have you been in contact with No / Unsu re 08/11/2022 8:22 AM CDT someone who was confirmed or suspected to have Coronavirus/COVID-19? Obstetrics History Last Filed Vital Signs Vital Sign Reading Time Taken Comments Blood Pressure 155/118 08/11/2022 8:35 AM CDT Pulse 96 08/11/2022 8:35 AM CDT Temperature 36.4 ??C (97.5 ??F) 08/11/2022 8:35 AM CDT Respiratory Rate 20 05/12/2022 11:45 AM CDT Oxygen Saturation 96% 05/12/2022 11:45 AM CDT Inhaled Oxygen Concentration - - Weight 79.8 kg (176 lb) 08/11/2022 8:35 AM CDT Height 142.2 cm (4' 8) 08/11/2022 8:35 AM CDT Body Mass Index 39.46 08/11/2022 8:35 AM CDT Plan of Treatment Health Maintenance Due Date Last Done Comments Depression screening for age 12+ 1960 Hepatitis C screening for age 0604/24/1966 18-79 Colonoscopy through age 75 1993 Lipids for age 45-75 1993 Mammogram for age 45-75 1993 Zoster (shingles) series for age 0604/24/1998 50+ (1 of 2) DEXA/DXA scan for age 65+ 2013 Medicare Wellness for age 65+ 2013 Tetanus booster 12/21/2021 12/21/2011, 12/28/2007 COVID-19 vaccine series (4 - 05/12/2022 03/17/2022, 021, Booster for Pfizer series) 12/30/2020 Influenza for age 65+ 07/15/2022 08/18/2021, 08/29/2020, 08/14/2019, Additional history exists BMI (ht and wt on same day) for 08/11/2023 08/11/2022, 12/2018, age 18+ 12/13/2015 Tdap Completed 12/21/2011, 12/28/2007 Pneumococcal series for age 65+ Completed 08/13/2015, 07/2014 Procedures Procedure Name Priority Date/Time Associated Diagnosis Comme nts SCAN 08/05/2022 1:28 PM Results f or this CORRESP-IMAGING CDT procedure ar e in the results section. from Last 3 Months Results SCAN CORRESP-IMAGING (08/05/2022 1:28 PM CDT) Narrative This result has an attachment that is no t available. Scanner OTHER from Last 3 Months Insurance Payer Benefit Plan / Subscriber ID Effective Dates Phone Addre ss Type Group MEDICARE PART A MEDICARE PART A [id number] 2013-Presen ATTN: CLAIMS - HB USE ONLY HB ONLY t [address] [place] [address] MEDICARE PART B MEDICARE PART B [id number] 2013-Presen ATTN: CLAIMS - HB USE ONLY HB ONLY t [address] [place] [address] BLUE CROSS BLUE CROSS [id number] 2021-Pres [address] [address] [address] [place], [place] ONLY [id number] (Work) [id number] Advance Directives Latest Code Status on File [...] 11:48 AM 02/21/2019 5:24 PM Care Teams Operational Meteorologist Relationship Specialty Start Date End Date Yoselyn Dewitt MD PCP - General Family Practice 02/21/191999 [place] [address]
--- OUTSIDE RECORDS SUMMARY | 2022-08-18 10:39 | XMS_ITS | Encounter Summary ---
:1950 Author Organization [facility] Address [address] [place] [address] Care Team Providers Name Role Phone Unavailable Primary Care Provider Unavailable Reason for Visit Appointment Request (Routine) - Closed Specialty Diagnoses / Procedures Referred By Contact Refer red To Contact Nephrology and Yoselyn Dewitt, Hypertension [address] [place] [address] Referral ID Status Reason Start Date Expiration Date Visits Requ ested Visits Authorized [id number] Closed 07/14/2022 07/14/2023 1 Encounter Details Date Type Department Care Team Description 07/20/2022 External Outreach Division of Arthur Donahue (Primary Dx); Nephrology and Ion Tamayo Jr., Other Heart Failure ([facility]); Hypertension in D.O. Atrial Fibrillation Longstanding Persist ent ([facility]); [place], [place] [address] [facility] Hypertension And Chronic Kidney Disease Stage 1; [address] [place], [place] Fracture T7-8 Wedge Compress ion Closed Initial ([facility]); [place] [address] Anticoagulant Therapy; [id number] Loss Hearing Sensorineural B ilateral Social History Tobacco Use Types Packs/Day Years Used Date Smoking Tobacco: Never Assessed Sex Assigned at Date Recorded Not on file documented as of this encounter Last Filed Vital Signs Vital Sign Reading [...] Mass Index 36.14 07/20/2022 4:33 PM CDT documented in this encounter Progress Notes Ion Donahue Jr., Jay.Mann. - 07/20/2022 3:00 PM CDT Referring Provider: DR Dewitt SUBJECTIVE REASON FOR VISIT [facility] [facility] Consultation regards hyponatremia, volume overload HISTORY OF PRESENT ILLNESS Ms. Flores is a 72 y.o. female who presents with a history of hyponatremia which was 1st discovered at the end of April/early May when she was hospitalized for pneumonia, and congestive heart failure. I appreciate that she has a preserved ejection fraction, and no valvular abnormalities, but she is struggled now for many months with worsening volume overload. I am asked to visit with her regards a difficult circumstances surrounding hyponatremia. Her serum sodium level was documented to 1st be low back in 2005 when I note that [place] records demonstrate serumsodium of 136 mEq per L. Her admission serum sodium level on the 12 of May this year was 130, anddrifted down to 125 mEq per L on the background of initiation of diuretics, following her antibiotictherapy to as low as 125. By the 31 of May the serum sodium level had risen to 130, and now up to135 on the 04 of July this year. Her team had initiated her on some sodium supplements. She is cared for at 3 links with herself and her in a supervised living environment her close friend/cook specialty, Natalie, a retired pharmacist helps care for her. She orchestrate the patient's medications. 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 There is some documentation of developmental delay/cognitive impairment. Dietary choices have been difficult, and the patient has been trying to keep her weight roughly 170 lb. However, despite being advised on a heart failure regimen her weight will very widely. There are documentation episodes in the outside record showing that her weight suddenly arden by 8 lb over the time frame of a weekend, perhaps on the background of inaccurate weighing or inaccurate recordings. She has listed as a medical adverse reaction to hydrochlorothiazide which the patient has no recollection of, perhaps this was on the background of hyponatremia. Her current diuretic dosage is 20 mg oftorsemide twice daily, her weight has risen substantially from her usual target weight of 170 lb up to 179 lb today. She is massive bilateral lower extremity and thigh edema increasing to the level of her waist. She does follow a diet quite high in sodium generally, more so recently as she was advisedto take an extra salt on the background of the hyponatremia. Urine studies do not demonstrate proteinuria. She has no liver function abnormalities. I appreciate the urine osmolality was 1.029 on the 29 of June. She is had normal thyroid function testing in the past, most recently in 2019, no hypothermia, no hypotension suggestive of adrenal insufficiency. She does not use NSAIDs. She is not been using any thiazide diuretics nor she on an SSRI agent. She has quite a bit of thoracic back pain, which she is been managing with acetaminophen alone. We spent quite a bit of time outlining her clinical trajectory and explaining the current circumstances whereby we will need to place her on a free water restriction and a sodium limitation. Past medical history: 1. Heart failure with preserved ejection fraction 2. Atrial fibrillation 3. Chronic long-term anticoagulation 4. Hypertension with CKD stage 1 5. Prior history of acute kidney injury secondary to decreased effective circulating volume 6. Recent congestive heart failure exacerbation 7. Recent episode pneumonia May 2022 8. T7 compression fracture secondary to nontraumatic injury-coughing 9. Mild cognitive impairment 10. History of cholecystectomy 11. Medically complicated overweight Current Outpatient Medications: dilTIAZem (TIAZAC/TAZTIA XT) 240 mg ER capsule, Take 240 mg by mouth., Disp: , Rfl: lisinopriL (PRINIVIL,ZESTRIL) 20 mg tablet, Take 2 tablets by mouth daily., Disp: , Rfl: metoprolol succinate (TOPROL-XL) 100 mg 24 hr tablet, Take 50 mg by mouth., Disp: , Rfl: torsemide (DEMADEX) 20 mg tablet, Take 2 tablets (40 mg total) by mouth 2 (two) times a day. Usual dose 40 mg in am 20 mg in PM with chf increase as directed, Disp: 360 tablet, Rfl: 3 calcium carbonate (OS-ANGELA) 1,250 mg (500 mg calcium) tablet, 2 (two) times a day., Disp: , Rfl: potassium chloride (KLOR-CON M) 10 mEq ER tablet, Take 2 tablets (20 mEq total) by mouth 2 (two) times a day with meals. Use 2 BID if 40 mg of torsemide BID, Disp: 360 tablet, Rfl: 3 warfarin (COUMADIN) 10 mg tablet, Take 10 mg by mouth., Disp: , Rfl: REVIEW OF SYSTEMS A full review of systems were performed, multiple positives, she is very hard of hearing, she has intense thoracic back pain, intact appetite no other constitutional complaints other review of systems noncontributory OBJECTIVE BP 138/78 Pulse 88 Resp 16 Ht 149.8 cm Wt 81.1 kg SpO2 90% BMI 36.14 kg/m?? PHYSICAL EXAMINATION General: Awake alert oriented, hard of hearing HEENT: JOEY, EOMI, Mucous membranes moist, no oral lesions, hearing aids bilateral Neck: No Masses, No Bruits Lungs: Clear to ascultation, decreased breath sounds Heart: Irregularly irregular rhythm no murmur no rub Abdomen: Soft, Non-tender, distended protuberant Extremities: Left upper extremity dramatically cooler than right, bilateral lower extremity massive anasarca extending to thighs Neuro: Cranial Nerves intact, Gait unsteady antalgic strength: She is quite weak and has difficulty arising out of the exam chair needs gait assistance Skin: no suspicious lesions identified Psychiatric: Normal affect DIAGNOSTICS Note hemoglobin 15.2, sodium 137, creatinine 0.6 mg/dL ASSESSMENT / PLAN #1 Hyponatremia This is likely due to ADH release on the background of decreased effective circulating volume, however pain related ADH release, thyroid insufficiency, and paraneoplastic phenomenon are all still possible. Given her heart failure with preserved ejection fraction, absence of proteinuria, in obvious issues given her mild hypoxemia with volume overload we need to move forward towards treatment of her congestive heart failure. While her renal sizes are preserved we may need to entertain the possibility of renal artery stenosis as well. From a diagnostic perspective 1. Check TSH 2. Check cortisol level 3. Check urinalysis and urine specific gravity 4. Repeat chemistries in 2 months 5. May consider renal artery duplex ultrasound and paraprotein and lipid screen- although her serum osmolality was truly low with her hyponatremia. From a therapeutic perspective: 1. Her target weight needs to be 172 lb 2. We will increase her loop diuretics to 40 mg of torsemide twice daily for the next 3 days 3. She will then resume with chronic dose of torsemide of 40 mg in the a.m. and 20 mg in the p.m. 4. If the above fails to get her to her target weight we will need to increase her torsemide to 60 mg b.i.d.. We could then even consider the addition of 5 mg of metolazone for 2 days to rid her of theexcess fluid to get her to a target weight. 5. I am concerned about precipitation of acute kidney injury given her Bert inhibition, and apparent endothelial dysfunction. We would need to monitor renal function carefully, I have orchestrated this. 6. No NSAIDs 7. Sodium limitation to less than 2000 mg sodium per day,. Discontinue Sodium supplements 8. Increased protein to 10 oz of protein intake per day 9. Free water decreased to 1.5 -2 L per day. 10. To avoid hypokalemia I have increased her potassium supplements to 10 mEq per 20 mg of torsemide, her helper Natalie, was written instructions regards this. #2 Other Heart Failure (HCC) Please see above discussion, which primarily focuses on a heart failure and cardiorenal perspective. #3 Atrial Fibrillation Longstanding Persistent ([facility]) Her heart rate is well controlled, she is on oral anticoagulation with an INR of 1.8. 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 Please see above discussion #5 Fracture T7-8 Wedge Compression Closed Initial ([facility]) Some of her acute pain may be leading to some of the ADH release, this seems to be improving she is seeing a spine experts this week. #6 Anticoagulant Therapy Her INR is 1.8. #7 Loss Hearing Sensorineural Bilateral Hearing aids in place Total time: 90 minutes Counseling Time: 50 minutes Ion Donahue Jr., Jay.O. documented in this encounter Plan of Treatment Not on filedocumented as of this encounter Visit Diagnoses Diagnosis Hyponatremia - Primary Other Heart Failure (HCC) Atrial Fibrillation Longstanding Persist ent ([facility]) Hypertension And Chronic Kidney Disease Stage 1 Fracture T7-8 Wedge Compression Closed I nitial (HCC) Anticoagulant Therapy Loss Hearing Sensorineural Bilateral documented in this encounter
--- NOTE | 2022-08-18 11:30 | CRLHL7_ITS ---
For Patients: As a result of the Century Cures Act, medical imaging exams and procedure reports are released immediately into your electronic medical record. You may view this report before your referring provider. If you have questions, please contact your health care provider. Indication: Compression fracture of T8 with delayed healing Technique: Volumetric multidetector CT images of the thoracic spine were obtained without the administration of IV contrast. Comparison: MRI thoracic spine without contrast August 02, 2022 Findings: There is again seen a evolving chronic vertebral plana fracture of the T8 level with stable retropulsion of the cortex measuring 5 millimeters. Additional mild anteroinferior deformity of the T7 endplate is appreciated. The remaining thoracic vertebral body heights are grossly preserved from comparison. There is mildly exaggerated thoracic kyphosis seen at the T7 and T8 levels. There is no significant scoliotic deformity. There is moderate to severe degenerative disc disease with disc height loss and marginal osteophyte formation. There is moderate spinal canal narrowing. There is moderate to severe bilateral neural foraminal narrowing at the T8-T9 level similar to previous exam. No evidence of new displaced fracture or dislocation. There is minimal dependent basilar atelectasis and parenchymal scar with mild pleural thickening of the right hemithorax. Old right-sided rib fractures are appreciated. Impression: Demonstration of chronic vertebral plana fracture of the T8 level similar to remote comparison exam. Additional compression deformity of the anteroinferior T7 level is again seen. No evidence of new compression fracture or significant change in retropulsion from previous exam. Please note that all CT scans at this facility use dose modulation, iterative reconstruction, and/or weight-based dosing when appropriate to reduce radiation dose to as low as reasonably achievable. Dictated by Guilherme Whitaker MD @ 08/18/2022 12:09:35 PM (Electronically Signed)
== END 2022-08-18 10:37 | disposition home or self-care (01) ==
LOC: CT 10:37
PROVIDERS: PCP Family Medicine; Visit Provider Neurological Surgery
DX: S22.060G Wedge compression fracture of T7-T8 vertebra, subsequent encounter for fracture with delayed healing (principal)
CPT/HCPCS: 72128

== ENCOUNTER 2022-08-30 00:06 | Outpatient (CLI) | payer MEDICARE, BC, SELFPAY ==
--- OUTSIDE RECORDS SUMMARY | 2022-09-08 09:02 | XMS_ITS | Clinical Summary ---
:1950 Author Organization [email or web address] Address [place] [address] Care Team Providers Name Role Phone Yoselyn Dewitt MD Primary Care Provider [phone] Allergies Active Allergy Reactions Severity Noted [...] Group MEDICARE PART A MEDICARE PART A [id number] 2013-Presen ATTN: CLAIMS - HB USE ONLY HB ONLY t [address] [place] [address] MEDICARE PART B MEDICARE PART B [id number] 2013-Presen ATTN: CLAIMS - HB USE ONLY HB ONLY t [address] [place] [address] BLUE CROSS BLUE CROSS [id number] 2021-Pres [address] [address] [address] [place], [place] ONLY [id number] (Work) [id number] Advance Directives Latest Code Status on File [...] 11:48 AM 02/21/2019 5:24 PM Care Teams Specification Consultant Relationship Specialty Start Date End Date Yoselyn Dewitt MD PCP - General Family Practice 02/21/[address] [place] [address]
--- OUTSIDE RECORDS SUMMARY | 2022-09-08 09:02 | XMS_ITS | Clinical Summary ---
:[address] [facility] Address [address] [place] [address] Care Team Providers Name Role Phone Unavailable Primary Care Provider Unavailable Source Comments Patient records contain information from all sites at [facility]. For routine questions regarding patient records, call [phone] during business hours, M-F 8:00 AM - 5:00 PM Central Time. Record requests for emergency care only can be directed to [phone] at any time.[facility] Allergies Active Allergy Reactions Severity Noted [...] Team Description 07/20/2022 External Outreach Nephrology and [place], Hyponatr emia (Primary Dx); Hypertension Ion Tamayo [...] Risk Screen (Annual) 11/14/2021 DTaP,Tdap,and Td Vaccines (3 - Td 12/21/2021 12/21/2011, or Tdap) COVID-19 Vaccine (4 - Booster for 05/12/2022 03/17/2022, , Pfizer series) 12/30/2020 Potassium Level 05/12/2023 05/12/2022, 02/21/2019 Sodium Level 05/12/2023 05/12/2022 Office Visit for Blood Pressure 07/20/2023 07/20/2022 Check / Re-check Pneumococcal vaccine (65+ years) Completed 08/13/2015, 07/2014 Influenza Vaccine Completed 08/25/2022, 08/18/2021, 08/29/2020, Additional history exists Insurance Payer Benefit Plan Subscriber ID Effective Phone Address Typ e / Group Dates MEDICARE MEDICARE A [id number] 2013-Pres [address] [place] [address] BLUE CROSS BCBS [place] [id number] 2021-Pres [phone] PO KISHAN X Cost Share BLUE SHIELD BLUE COST ent [phone] [place] [address]
--- OUTSIDE RECORDS SUMMARY | 2022-09-08 09:02 | XMS_ITS | Encounter Summary ---
:1950 Author Organization [facility] Address [address] [place] [address] Care Team Providers Name Role Phone Unavailable Primary Care Provider Unavailable Reason for Visit Appointment Request (Routine) - Closed Specialty Diagnoses / Procedures Referred By Contact Refer red To Contact Nephrology and Yoselyn Dewitt Hypertension MKeysha [address] [place] [address] Referral ID Status Reason Start Date Expiration Date Visits Requ ested Visits Authorized [id number] Closed 07/14/2022 07/14/2023 1 Encounter Details Date Type Department Care Team Description 07/20/2022 External Outreach Division of Arthur Donahue (Primary Dx); Nephrology and Ion Tamayo Jr., Other Heart Failure ([facility]); Hypertension in D.O. Atrial Fibrillation Longstanding Persist ent ([facility]); [place], [place] [address] [facility] Hypertension And Chronic Kidney Disease Stage 1; [address] [place], [place] Fracture T7-8 Wedge Compress ion Closed Initial ([facility]); [place] [address] Anticoagulant Therapy; [address] Loss Hearing Sensorineural B ilateral Social History [...] this encounter Progress Notes Ion Donahue Jr., D.O. - 07/20/2022 3:00 PM CDT Referring Provider: DR Dewitt SUBJECTIVE REASON FOR VISIT [facility] out reach CKD [facility] Consultation regards hyponatremia, [...] back in 2005 when I note that [place] records demonstrate serumsodium of 136 mEq per [...] in a supervised living environment her close friend/human geography instructor, Natalie, a retired pharmacist helps care for her. She orchestrate the patient's medications. 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 There is some documentation [...] cardiorenal perspective. #3 Atrial Fibrillation Longstanding Persistent (HCC) Her heart rate is well controlled, she is on oral anticoagulation with an INR of 1.8. 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 Please see above discussion #5 Fracture T7-8 Wedge Compression Closed Initial ([facility]) Some of her acute pain may be leading to some of the ADH release, this seems to be improving she is seeing a spine experts this week. #6 Anticoagulant Therapy Her INR is 1.8. #7 Loss Hearing Sensorineural Bilateral Hearing aids in place Total time: 90 minutes Counseling Time: 50 minutes Jay Troncoso Jr..O. documented in this encounter Plan of Treatment Not on filedocumented as of this encounter Visit Diagnoses Diagnosis Hyponatremia - Primary Other Heart Failure (HCC) Atrial Fibrillation Longstanding Persist ent ([facility]) Hypertension And Chronic Kidney Disease Stage 1 Fracture T7-8 Wedge Compression Closed I nitial (HCC) Anticoagulant Therapy Loss Hearing Sensorineural Bilateral documented in this encounter
== END 2022-08-30 00:07 | disposition home or self-care (01) ==
PROVIDERS: PCP Family Medicine; Visit Provider Family Medicine
DX: R53.1 Weakness (principal)
CPT/HCPCS: A0998

== ENCOUNTER 2022-09-08 14:29 | Outpatient (CLI) | payer MEDICARE, BC, SELFPAY ==
--- OUTSIDE RECORDS SUMMARY | 2022-09-08 14:32 | XMS_ITS | Clinical Summary ---
:1950 Author Organization [facility] Address [address] [place] [address] Care Team Providers Name Role Phone Unavailable Primary Care Provider Unavailable Source Comments Patient records contain information from all sites at [facility]. For routine questions regarding patient records, call [phone] during business hours, M-F 8:00 AM - 5:00 PM Central Time. Record requests for emergency care only can be directed to [phone] at any time.[facility] Allergies Active Allergy Reactions Severity Noted Date [...] Team Description 07/20/2022 External Outreach Nephrology and [place], Hyponatr emia (Primary Dx); Hypertension Ion Tamayo [...] e / Group Dates MEDICARE MEDICARE A [id number] 2013-Pres [address] [place] [address] BLUE CROSS BCBS [place] [id number] 2021-Pres [phone] PO KISHAN X Cost Share BLUE SHIELD BLUE COST ent [phone] [place] [address]
--- OUTSIDE RECORDS SUMMARY | 2022-09-08 14:32 | XMS_ITS | Encounter Summary ---
:1950 Author Organization [facility] Address [address] [place] [address] Care Team Providers Name Role Phone Unavailable Primary Care Provider Unavailable Reason for Visit Appointment Request (Routine) - Closed Specialty Diagnoses / Procedures Referred By Contact Refer red To Contact Nephrology and Yoselyn Dewitt Hypertension MKeysha [address] [place] [address] Referral ID Status Reason Start Date Expiration Date Visits Requ ested Visits Authorized [id number] Closed 07/14/2022 07/14/2023 1 Encounter Details Date Type Department Care Team Description 07/20/2022 External Outreach Division of Arthur Donahue (Primary Dx); Nephrology and Ion Tamayo Jr., Other Heart Failure ([facility]); Hypertension in D.O. Atrial Fibrillation Longstanding Persist ent ([facility]); [place], [place] [address] [facility] Hypertension And Chronic Kidney Disease Stage 1; [address] [place], [place] Fracture T7-8 Wedge Compress ion Closed Initial ([facility]); [place] [address] Anticoagulant Therapy; [address] Loss Hearing Sensorineural B ilateral Social History [...] Provider: DR Dewitt SUBJECTIVE REASON FOR VISIT [facility] out reach CKD [facility] Consultation regards hyponatremia, [...] back in 2005 when I note that [place] records demonstrate serumsodium of 136 mEq per [...] in a supervised living environment her close friend/cardiographer, Natalie, a retired pharmacist helps care for her. She orchestrate the patient's medications. 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 There is some documentation [...] #5 Fracture T7-8 Wedge Compression Closed Initial ([facility]) Some of her acute pain may be [...] Failure (HCC) Atrial Fibrillation Longstanding Persist ent ([facility]) Hypertension And Chronic Kidney Disease Stage 1 Fracture T7-8 Wedge Compression Closed I nitial (HCC) Anticoagulant Therapy Loss Hearing Sensorineural Bilateral documented in this encounter
--- OUTSIDE RECORDS SUMMARY | 2022-09-08 14:32 | XMS_ITS | Clinical Summary ---
:1950 Author Organization [facility] [place] [address] Care Team Providers Name Role Phone Yoselyn Dewitt MD Primary Care Provider [phone] Allergies Active Allergy Reactions Severity Noted [...] Group MEDICARE PART A MEDICARE PART A [id number] 2013-Presen ATTN: CLAIMS - HB USE ONLY HB ONLY t [address] [place] [address] MEDICARE PART B MEDICARE PART B [id number] 2013-Presen ATTN: CLAIMS - HB USE ONLY HB ONLY t [address] [place] [address] BLUE CROSS BLUE CROSS [id number] 2021-Pres [address] [address] [address] [place], [place] ONLY [id number] (Work) [id number] Advance Directives Latest Code Status on File [...] 11:48 AM 02/21/2019 5:24 PM Care Teams Activity Director Relationship Specialty Start Date End Date Yoselyn Dewitt MD PCP - General Family Practice 02/21/[address] [place] [address]
[2022-09-08 17:27] LABS: Chloride* 92 mmol/L (96-114); Potassium* 4.5 mmol/L (3.6-5.1); Sodium* 136 mmol/L (135-149)
[2022-09-08 17:30] LABS: Blood Urea Nitrogen* 38 mg/dL (7-30); Calcium* 8.5 mg/dL (8.4-10.6); Carbon Dioxide* 38 mmol/L (20-32); Creatinine* 0.7 mg/dL (0.5-1.5); Estimated Glomerular Filt Rate 91 ml/min; Glucose* 98 mg/dL (60-115)
== END 2022-09-08 14:30 | disposition home or self-care (01) ==
LOC: NFLDREF 14:30
PROVIDERS: PCP Family Medicine; Visit Provider Family Medicine
DX: E87.1 Hypo-osmolality and hyponatremia (principal); E87.70 Fluid overload, unspecified; I10 Essential (primary) hypertension
CPT/HCPCS: 80048

== ENCOUNTER 2022-09-15 10:07 | Inpatient (IN) | payer MEDICARE, BC, SELFPAY ==
[2022-09-15] VITALS (18 sets, daily range): BP systolic 103–155; BP diastolic 42–97; PULSE 71–100; RESP 18–28; TEMP 36.6; O2SAT 88–100; BMI 43.3
--- NOTE | 2022-09-15 12:59 | ED_ITS ---
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 Patient was noted to have seen her primary doctor last week and they noticed that her oxygen levels were decreased into the 80s. At that time her weight was also up 11 lb. She was instructed to do increased amounts of torsemide for 3 days on the , and . She normally takes 40 mg of torsemide in the morning and then 20 mg at noon. During those 3 days she was instructed U 40 mg b.i.d.. She did have a decrease of 6 lb because of this. However it is noticed that her oxygen level was at 83% this morning when she had occupational therapy visit. Dai notes some shortness of breath with activity but denies any chest pain, sore throat runny nose or recent cough. She denies any fever or chills. Her lower extremities are chronically swollen. . Caregiver states that it appears that things are improved from Last week. I have Deepti Dai has been told to avoid salt but unfortunately is not always compliant. Duties caregiver notes that Dai is not very active. She has a significant T7 compression fraction and therefore wears a brace. caregiver seems somewhat frustrated as she feels Dai does not take care of herself. Related Data Home Medications Medication Instructions Recorded Confirmed alendronate 70 mg tablet 70 mg PO .Every 7 Days 05/11/22 09/15/22 calcium carbonate 500 mg calcium 1,000 mg PO DAILY 05/11/22 09/15/22 (1,250 mg) tablet torsemide 20 mg tablet 40 mg PO BID 07/20/22 09/15/22 cholecalciferol (vitamin D3) 50 2,000 unit PO DAILY 08/03/22 09/15/22 mcg (2,000 unit) capsule digoxin 125 mcg (0.125 mg) tablet 125 mcg PO DAILY 08/03/22 09/15/22 potassium chloride 10 mEq 10 meq PO TID 09/08/22 09/15/22 tablet,extended release(part/cryst) Previous Rx's Medication Instructions Recorded diltiazem HCl 180 mg 360 mg PO QDAY #180 caps 05/25/22 capsule,extended release 24 hr (Cartia XT) lisinopril 40 mg tablet 40 mg PO QDAY #90 tabs 05/25/22 metoprolol succinate 100 mg 150 mg PO QDAY #135 tabs 05/25/22 tablet,extended release 24 hr calcitonin (salmon) 200 1 spray intranasal (ALT) QDAY #3.7 05/28/22 unit/actuation nasal spray mL warfarin 5 mg tablet See Rx Instructions PO DAILY #102 08/03/22 tabs Allergies Allergy/AdvReac Type Severity Reaction Status Date / Time hydrocortisone Allergy Unknown Verified 09/08/22 14:02 hydrochlorothiazide AdvReac Intermediate hyponatremi Verified 09/08/22 14:02 a amlodipine AdvReac Mild Edema Verified 09/08/22 14:02 Review of Systems Const: Reports: change in weight; Denies: fever or chills Eyes: Denies: change in vision ENMT: Denies: throat pain or difficulty swallowing Cardio: Reports: swelling of feet/ankles ( Chronic) and shortness of breath with exertion ( with activity); Denies: chest pain or palpitations Resp: Reports: shortness of breath ( with activity); Denies: cough GI: Denies: abdominal pain, nausea, vomiting, diarrhea or difficulty swallowing : Denies: painful urination Musculo: Reports: back pain ( chronic) Neuro: Denies: headache PFSH PFSH Medical History Acute on chronic combined systolic and diastolic heart failure, NYHA class 2 (04/2022) Acute on chronic right-sided heart failure Angioma of skin Atrial fibrillation with normal ventricular rate (03/2019) Calculus of bile duct (04/2022) Chronic heart failure with preserved ejection fraction History of acute congestive heart failure (2016) History of nuclear stress test Hypertension (01/04/07) Hyponatremia Long-term (current) use of anticoagulants, INR goal 2.0-3.0 Lumbar radiculopathy Mild cognitive impairment (2020) Right middle lobe pneumonia Systolic congestive heart failure Temporal headache Tubular adenoma of colon (2016) Surgical History History of bilateral cataract extraction History of cholecystectomy History of ear surgery History of hysterectomy for benign disease History of tonsillectomy Hx of appendectomy Status post endoscopic retrograde cholangiopancreatography (05/12/22) Family History Mother Brain aneurysm, Onset Age: 65 Father Coronary artery disease, Onset Age: 62 Brother Coronary artery disease, Onset Age: 64 Sister Colon cancer, Onset Age: 56 Social History Narrative: exercises regularly- 1-2/week: exercise bike, twisting , independent living 3 links, 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 Oral cavity is moist mucous membranes. Neck is supple no lymphadenopathy. Heart with regular rate and rhythm at this time. Lungs are with decreased best breath sounds in the bases bilaterally. Abdomen soft nontender. Lower extremity 3+ edema noted no weeping noted. Stockings are in place. Initial pulse ox here 88% at home 83% improved to 98% on 2 L nasal cannula. Const: Vital Signs, click to edit/add: Vital Signs - 24 hr 09/15/22 10:14 09/15/22 13:14 09/15/22 13:14 Temperature 97.8 F Pulse Rate Pulse Rate [Right Pulse Oximeter] 85 Respiratory Rate 18 Blood Pressure Blood Pressure [Ri ght Arm] Blood Pressure [Ri ght Upper Arm] 155/77 H Pulse Oximetry 88 98 98 Oxygen Delivery Me thod Room Air Nasal Cannula Oxygen Flow Rate 2 09/15/22 14:11 09/15/22 14:16 09/15/22 14:30 Temperature Pulse Rate 100 Pulse Rate [Right Pulse Oximeter] Respiratory Rate Blood Pressure 151/86 H Blood Pressure [Ri ght Arm] Blood Pressure [Ri ght Upper Arm] Pulse Oximetry 97 99 100 Oxygen Delivery Me thod Nasal Cannula Nasal Cannula Nasal Cannula Oxygen Flow Rate 2 2 2 09/15/22 14:32 09/15/22 15:00 09/15/22 15:02 Temperature Pulse Rate Pulse Rate [Right Pulse Oximeter] Respiratory Rate Blood Pressure 103/42 L 119/93 H Blood Pressure [Ri ght Arm] Blood Pressure [Ri ght Upper Arm] Pulse Oximetry 100 100 99 Oxygen Delivery Me thod Nasal Cannula Nasal Cannula Nasal Cannula Oxygen Flow Rate 2 2 2 09/15/22 15:03 09/15/22 15:32 09/15/22 15:33 Temperature Pulse Rate Pulse Rate [Right Pulse Oximeter] Respiratory Rate Blood Pressure 103/73 Blood Pressure [Ri ght Arm] Blood Pressure [Ri ght Upper Arm] Pulse Oximetry 99 97 97 Oxygen Delivery Me thod Nasal Cannula Nasal Cannula Nasal Cannula Oxygen Flow Rate 2 2 2 09/15/22 16:01 09/15/22 16:35 09/15/22 17:18 Temperature 97.8 F Pulse Rate Pulse Rate [Right Pulse Oximeter] Respiratory Rate 18 Blood Pressure 124/79 Blood Pressure [Ri ght Arm] 127/97 H Blood Pressure [Ri ght Upper Arm] Pulse Oximetry 97 97 Oxygen Delivery Me thod Nasal Cannula Nasal Cannula Nasal Cannula Oxygen Flow Rate 2 2 2 09/15/22 17:18 09/15/22 17:38 Temperature Pulse Rate Pulse Rate [Right Pulse Oximeter] Respiratory Rate 18 28 H Blood Pressure Blood Pressure [Ri ght Arm] Blood Pressure [Ri ght Upper Arm] Pulse Oximetry 93 94 Oxygen Delivery Me thod Nasal Cannula Nasal Cannula Oxygen Flow Rate 2 2 Course Vital Signs Vital signs: Initial Vital Signs Temperature 97.8 F 09/15/22 10:14 Temperature Source Temporal Artery Scan 09/15/22 10:14 Pulse Rate 85 09/15/22 10:14 Respiratory Rate 18 09/15/22 10:14 Blood Pressure 155/77 H 09/15/22 10:14 Blood Pressure Mean 103 09/15/22 10:14 Blood Pressure Position Sitting 09/15/22 10:14 Pulse Oximetry 88 09/15/22 10:14 Oxygen Delivery Method 09/15/22 10:14 Vital Signs Temperature 97.8 F 09/15/22 10:14 Pulse Rate 85 09/15/22 10:14 Respiratory Rate 18 09/15/22 10:14 Blood Pressure 155/77 H 09/15/22 10:14 Pulse Oximetry 88 09/15/22 10:14 Oxygen Delivery Method 09/15/22 10:14 Temperature 97.8 F 09/15/22 17:18 Pulse Rate 85 09/15/22 20:20 Respiratory Rate 28 H 09/15/22 17:38 Blood Pressure 127/97 H 09/15/22 17:18 Pulse Oximetry 95 09/15/22 20:20 Oxygen Delivery Method 09/15/22 20:20 Oxygen Flow Rate 3 09/15/22 20:20 Medical Decision Making MDM Narrative Medical decision making narrative: 1. Congestive heart failure exacerbation-patient given 40 mg of IV Lasix. Creatinine is reassuring at 0.6 at this time. Patient will need to stay for diuresis. White count is normal with a proBNP elevated at 1700. 2. History of atrial fibrillation with chronic anticoagulation -will add INR and order EKG. 3. Disposition -patient will be admitted to the floor under the care of Dr. Carpio hospitalist for continued diuresis. Medical Records Medical records reviewed: Yes I reviewed the patient's medical records Lab Data Lab results reviewed: Yes I reviewed the patient's lab results Labs: Lab Results 09/15/22 09/15/22 09/15/22 Range/Units 13:52 13:52 13:52 WBC 8.09 (4.50-11.00) K/uL RBC 4.84 (4.00-5.20) m/uL Hgb 15.2 (12.0-16.0) gm/dL Hct 46.9 (33.0-51.0) % MCV 97 (80-100) fL MCH 31 (26-34) pg MCHC 32 (32-36) gm/dL RDW Coeff of [place] 12.9 (11.5-15.5) % Plt Count 235 (140-440) K/uL Neut % (Auto) 78.2 H (42.0-72.0) % Lymph % (Auto) 11.9 L (20-44) % [place] % (Auto) 7.4 (0.0-11.0) % Eos % (Auto) 1.6 (0.0-7.0) % Baso % (Auto) 0.5 (0.0-3.0) % Neut # (Auto) 6.30 (1.7-7.0) K/uL Lymph # (Auto) 1.00 (0.90-2.90) K/uL [place] # (Auto) 0.60 (0.00-0.90) K/UL Eos # (Auto) 0.13 (0.00-0.50) K/uL Baso # (Auto) 0.04 (0.00-0.30) K/uL Abs Immat Gran (auto) 0.03 (0.00-0.30) K/uL Imm/Tot Granulo (auto) Not Reportable Sodium 132 L (135-149) mmol/L Potassium 4.3 (3.6-5.1) mmol/L Chloride 90 L (96-114) mmol/L Carbon Dioxide 38 H (20-32) mmol/L BUN 30 (7-30) mg/dL Creatinine 0.6 (0.5-1.5) mg/dL Estimated GFR 94 ml/min Glucose 98 (60-115) mg/dL Calcium 8.1 L (8.4-10.6) mg/dL Magnesium 2.3 (1.5-2.6) mg/dL Total Bilirubin 0.6 (0.1-1.5) mg/dL AST 32 (12-35) U/L ALT 34 (4-35) U/L Alkaline Phosphatase 57 (40-150) U/L C-Reactive Protein 0.7 (0.5-1.0) mg/dL NT-Pro-B Natriuret Pep 1700 H (0-125) PG/mL Total Protein 6.6 (6.0-8.3) g/dL Albumin 3.8 (3.3-5.0) g/dL Urine Color (Yellow) Urine Appearance (Clear) Urine pH (5.0-8.5) Ur Specific [place] (1.000-1.030) Urine Protein (Negative) Urine Glucose (UA) (Negative) Urine Ketones (Negative) Urine Blood (Negative) Urine Nitrite (Negative) Urine Bilirubin (Negative) Urine Urobilinogen (0.2-1.0) Ur Leukocyte Esterase (Negative) Urine RBC (0-2) Urine WBC (0-5) Ur Squamous Epith Cells (None-Few) Urine Bacteria (None) SARS-CoV-2 (PCR) Negative SARS-CoV-2 (Negative) Influenza Type A (PCR) Negative PCR FLU A (Negative) Influenza Type B (PCR) Negative PCR FLU B (Negative) 09/15/22 Range/Units 14:05 WBC (4.50-11.00) K/uL RBC (4.00-5.20) m/uL Hgb (12.0-16.0) gm/dL Hct (33.0-51.0) % MCV (80-100) fL MCH (26-34) pg MCHC (32-36) gm/dL RDW Coeff of Sobia (11.5-15.5) % Plt Count (140-440) K/uL Neut % (Auto) (42.0-72.0) % Lymph % (Auto) (20-44) % [place] % (Auto) (0.0-11.0) % Eos % (Auto) (0.0-7.0) % Baso % (Auto) (0.0-3.0) % Neut # (Auto) (1.7-7.0) K/uL Lymph # (Auto) (0.90-2.90) K/uL [place] # (Auto) (0.00-0.90) K/UL Eos # (Auto) (0.00-0.50) K/uL Baso # (Auto) (0.00-0.30) K/uL Abs Immat Gran (auto) (0.00-0.30) K/uL Imm/Tot Granulo (auto) Sodium (135-149) mmol/L Potassium (3.6-5.1) mmol/L Chloride (96-114) mmol/L Carbon Dioxide (20-32) mmol/L BUN (7-30) mg/dL Creatinine (0.5-1.5) mg/dL Estimated GFR ml/min Glucose (60-115) mg/dL Calcium (8.4-10.6) mg/dL Magnesium (1.5-2.6) mg/dL Total Bilirubin (0.1-1.5) mg/dL AST (12-35) U/L ALT (4-35) U/L Alkaline Phosphatase (40-150) U/L C-Reactive Protein (0.5-1.0) mg/dL NT-Pro-B Natriuret Pep (0-125) PG/mL Total Protein (6.0-8.3) g/dL Albumin (3.3-5.0) g/dL Urine Color Yellow (Yellow) Urine Appearance Clear (Clear) Urine pH 5.0 (5.0-8.5) Ur Specific [place] 1.015 (1.000-1.030) Urine Protein Negative (Negative) Urine Glucose (UA) Negative (Negative) Urine Ketones Negative (Negative) Urine Blood Negative (Negative) Urine Nitrite Negative (Negative) Urine Bilirubin Negative (Negative) Urine Urobilinogen 0.2 (0.2-1.0) Ur Leukocyte Esterase Trace A (Negative) Urine RBC 0-2 (0-2) Urine WBC 2-5 (0-5) Ur Squamous Epith Cells None (None-Few) Urine Bacteria None (None) SARS-CoV-2 (PCR) (Negative) Influenza Type A (PCR) (Negative) Influenza Type B (PCR) (Negative) Imaging Data Chest x-ray: Attestation: I have reviewed the pertinent imaging results. My impression: pulmonary edema Radiologist's impression: New moderate reticulonodular infiltrates and bibasilar atelectasis seen. No sign of pleural effusion seen. No pneumothorax is identified. Bone and Soft tissue: Remote fracture deformity of the left proximal humerus and a sclerotic lesion in the right proximal humerus measuring 7 mm are noted. IMPRESSIONS: 1. New moderate reticulonodular infiltrates and bibasilar atelectasis seen. Clinical correlation recommended to exclude pulmonary edema. 2. Moderate cardiomegaly is present without interval change. Discharge Plan Discharge Discharge Location: [facility]
--- NOTE | 2022-09-15 13:14 | CRLHL7_ITS ---
For Patients: As a result of the Cures Act, medical imaging exams and procedure reports are released immediately into your electronic medical record. You may view this report before your referring provider. If you have questions, please contact your health care provider. INDICATION: Hypoxia TECHNIQUE: Chest radiograph 1 view COMPARISON: 05/28/2022 FINDINGS: The sensitivity and specificity of the exam are severely limited by the patient`s body habitus. Mediastinum: The mediastinum is normal in appearance. Moderate cardiomegaly is present without interval change. Lung: New moderate reticulonodular infiltrates and bibasilar atelectasis seen. No sign of pleural effusion seen. No pneumothorax is identified. Bone and Soft tissue: Remote fracture deformity of the left proximal humerus and a sclerotic lesion in the right proximal humerus measuring 7 mm are noted. IMPRESSIONS: 1. New moderate reticulonodular infiltrates and bibasilar atelectasis seen. Clinical correlation recommended to exclude pulmonary edema. 2. Moderate cardiomegaly is present without interval change. Dictated by Erik Hill MD @ 09/15/2022 2:22:54 PM Dictated by: Erik Hill MD @ 09/15/2022 14:22:59 (Electronically Signed)
--- OUTSIDE RECORDS SUMMARY | 2022-09-15 13:30 | XMS_ITS | Encounter Summary ---
:1950 Author Organization [facility] Address [address] [place] [address] Care Team Providers Name Role Phone Unavailable Primary Care Provider Unavailable Reason for Visit Appointment Request (Routine) - Closed Specialty Diagnoses / Procedures Referred By Contact Refer red To Contact Nephrology and Yoselyn Dewitt Hypertension [address] [place] [address] Referral ID Status Reason Start Date Expiration Date Visits Requ ested Visits Authorized [id number] Closed 07/14/2022 07/14/2023 1 Encounter Details Date Type Department Care Team Description 07/20/2022 External Outreach Division of Arthur Donahue (Primary Dx); Nephrology and Ion Tamayo Jr., Other Heart Failure ([facility]); Hypertension in D.O. Atrial Fibrillation Longstanding Persist ent ([facility]); [place], [place] [address] [facility] Hypertension And Chronic Kidney Disease Stage 1; [address] [place], [place] Fracture T7-8 Wedge Compress ion Closed Initial ([facility]); [place] [address] Anticoagulant Therapy; [id number] Loss Hearing Sensorineural B ilateral Social History [...] Provider: DR Dewitt SUBJECTIVE REASON FOR VISIT [facility] out reach [facility] Consultation regards hyponatremia, [...] back in 2005 when I note that [place] records demonstrate serumsodium of 136 mEq per [...] in a supervised living environment her close friend/structural architect, Natalie, a retired pharmacist helps care for her. She orchestrate the patient's medications. 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 There is some documentation [...] #5 Fracture T7-8 Wedge Compression Closed Initial ([facility]) Some of her acute pain [...] Failure (HCC) Atrial Fibrillation Longstanding Persist ent ([facility]) Hypertension And Chronic Kidney Disease Stage 1 Fracture T7-8 Wedge Compression Closed I nitial (HCC) Anticoagulant Therapy Loss Hearing Sensorineural Bilateral documented in this encounter
--- OUTSIDE RECORDS SUMMARY | 2022-09-15 13:30 | XMS_ITS | Clinical Summary ---
:1950 Author Organization [facility] [place] [address] Care Team Providers Name Role Phone Yoselyn Dewitt MD Primary Care Provider [phone] [phone] Allergies Active Allergy Reactions Severity Noted Date Comments Hydrochlorothiazide GI Upset 07/20/2022 Hydrocortisone *Unknown 02/21/2019 Medications Medication Sig Dispensed Refills Start End Date Status Date digoxin (LANOXIN) Take 1 tablet 0 Active 125 mcg tablet by mouth once 9 daily. metoprolol [The details of 0 Act ryan succinate (TOPROL the medication 9 XL) 100 mg are not Sustained-Release available tabletIndications: because there Persistent atrial are pending fibrillation (HC), changes by a Hypertension, home health unspecified type clinician.] diltiazem CD [The details of 30 capsule 2 Active (CARDIZEM CD) 240 the medication 9 mg extended release are not 24 hr available capsuleIndications: because there Persistent atrial are pending fibrillation (HC), changes by a Hypertension, home health unspecified type clinician.] torsemide (DEMADEX) [The details of 0 Active 20 mg the medication 1 tabletIndications: are not Persistent atrial available fibrillation (HC) because there are pending changes by a home health clinician.] polyethylene glycoL Mix 1 scoop in 0 Active (Miralax) 17 liquid then gram/dose powder take by mouth once daily if needed for Constipation. potassium chloride [The details of 0 Active (KLOR-CON 10; the medication 2 K-TAB) 10 mEq are not Controlled-Release available tablet because there are pending changes by a home health clinician.] dilTIAZem (DILACOR Take 360 mg by 0 Active XR; DILTIA XT) 180 mouth once 2 mg Extended-Release daily. capsule lisinopriL Take 40 mg by 0 Activ e (PRINIVIL; ZESTRIL) mouth once 40 mg tablet daily. warfarin (COUMADIN) [The details of 0 Active 5 mg tablet the medication are not available because there are pending changes by a home health clinician.] alendronate Take 70 mg by 0 Acti ve (FOSAMAX) 70 mg mouth every tablet Tuesday morning. cholecalciferol Take 2,000 0 Act ryan (Vitamin D-3) 2,000 units by mouth unit capsule once daily. acetaminophen Take 500 mg by 0 A ctive (TYLENOL EXTRA mouth 3 times STRGTH) 500 mg daily if needed tablet for Pain. 1-2 tabs thress times a day prn calcitonin salmon, Inhale 1 [place] 0 Active 200 units per into affected actuation, nasal nostril(s) once (MIACALCIN, daily. FORTICAL) 200 alternating unit/actuation nostrils daily nasal spray albuterol HFA Every 4 Hours 0 09/10/20 Di scontinued (PROVENTIL HFA) 90 as needed 8 22 ( *Patient mcg/actuation states no inhaler longer taking/Not on sending facility l ist) calcium carbonate Twice A Day 0 09/10/20 Discontinued (OS-ANGELA 500) 500 mg 22 (*Patient calcium (1,250 mg) s tates no tablet longer taking/Not on sending facility l ist) lisinopril Take 1 tablet 0 09/10/20 Disco ntinued (PRINIVIL; ZESTRIL) by mouth once 9 22 (*Patient 20 mg tablet daily. states no longer taking/Not on sending facility l ist) amLODIPine 3 09/10/20 Discontin ued (NORVASC) 10 mg 9 22 (*Pa tient tablet states no longer taking/Not on sending facility l ist) warfarin (COUMADIN) Take 10 mg by 0 Discontinued 10 mg tablet mouth once 22 (*Felicia ent daily. states no Tues/Thurs longer taking/Not on sending facility l ist) warfarin (COUMADIN) Take 7.5 mg by 0 09/10 Discontinued 7.5 mg tablet mouth once 22 (*Pat ient daily. states no Sun/Tue/Tue/Tue long er /Sat taking/Not on sending facility l ist) Active Problems Problem Noted Date Sensorineural hearing loss, bilateral 06/14/2019 Persistent atrial fibrillation 02/20/2019 Hypertension 02/20/2019 Encounters Date Type Specialty Care Team Description 09/15/2022 Home Care Visit Nuris Peters RN CARE CONTROLS ENGINEER RDINATION 09/14/2022 Home Care Visit Ed Morales PT PT - INITIAL ASSESSMENT 09/14/2022 Home Care Visit Lizette Celis STRAP SETTER - HOME VISIT 09/14/2022 Travel 09/13/2022 Home Care Visit Alisa Maher RN SN - HOME VISIT 09/13/2022 Home Care Visit Nuris Peters RN CO-VISIT FOR CLINICAL NEED 09/10/2022 Home Care Visit Alisa Maher RN SN - OASIS START OF CARE 09/09/2022 Transcribe Orders Yoselyn Dewitt MD 08/11/2022 Office Visit Daquan Cool Consult (Spine ) MD Javier 08/11/2022 Travel 08/02/2022 Orders Only Scanner <No [...] in contact with No / Unsu re 09/14/2022 3:32 PM CDT someone who was confirmed or suspected to have Coronavirus/COVID-19? Obstetrics History Last Filed Vital Signs Vital Sign Reading Time Taken Comments Blood Pressure 130/80 09/14/2022 3:44 PM CDT Pulse 110 09/14/2022 3:44 PM CDT Temperature 36.7 ??C (98.1 ??F) 09/14/2022 3:44 PM CDT Respiratory Rate 18 09/14/2022 3:44 PM CDT Oxygen Saturation 89% 09/14/2022 3:44 PM CDT Inhaled Oxygen Concentration - - Weight 79.8 kg (176 lb) 09/13/2022 9:29 AM CDT Height 142.2 cm (4' 8) 08/11/2022 8:35 AM CDT Body Mass Index 39.46 08/11/2022 8:35 AM CDT Plan of Treatment Upcoming Encounters Date Type Specialty Care Team Description 09/16/2022 Home Care Visit Alisa Maher RN 09/20/2022 Home Care Visit Nuris Peters, [address] [place], [place] [address] (Wo rk) 09/21/2022 Home Care Visit Lizette Celis [address] [place] [address] (Wo rk) 09/23/2022 Home Care Visit Nuris Peters, [address] [place], [place] [address] (Wo rk) 09/28/2022 Home Care Visit Lizette Celis [address] [place] [address] (Wo rk) 10/05/2022 Home Care Visit Lizette Celis [address] [address] (Wo rk) 10/12/2022 Home Care Visit Lizette Celis [address] [place] [address] (Wo rk) 10/19/2022 Home Care Visit Lizette Celis [address] [address] (Wo rk) Health Maintenance Due Date Last Done Comments [...] Phone Addre ss Type Group MEDICARE PART MEDICARE PART [id number] 2013-[place]: CLAIMS A - HB USE A HB ONLY [place] [address] [place] [address] MEDICARE PART MEDICARE PART [id number] 2013-[place] AT [place]: CLAIMS B - HB USE B HB ONLY t [address] [place] [address] BLUE CROSS BLUE CROSS [id number] 2021-[place] [address] [place], [place] HB ONLY [id number] MEDICARE PPS HC MEDICARE [id number] 2013-Presen [address] X 2019 [address] [place] [address] (Work) [id number] Layla Flores Personal/Family Self 1950 [address] [place] [address] Advance Directives Latest Code Status on File [...] 11:48 AM 02/21/2019 5:24 PM Care Teams Neurosurgical Nurse Relationship Specialty Start Date End Date Yoselyn Dewitt MD PCP - General Family Practice 02/21/191999 [place] [address] [facility] 09/09/[address] [place] [id number]
--- OUTSIDE RECORDS SUMMARY | 2022-09-15 13:30 | XMS_ITS | Clinical Summary ---
:1950 Author Organization [facility] Address [address] [place] [id number] Care Team Providers Name Role Phone Unavailable Primary Care Provider Unavailable Source Comments Patient records contain information from all sites at [facility]. For routine questions regarding patient records, call [phone] during business hours, M-F 8:00 AM - 5:00 PM Central Time. Record requests for emergency care only can be directed to [phone] at any time.[facility] Allergies Active Allergy Reactions Severity Noted Date [...] Team Description 07/20/2022 External Outreach Nephrology and [place], Hyponatr emia (Primary Dx); Hypertension Ion Tamayo [...] e / Group Dates MEDICARE MEDICARE A [id number] 2013-Pres [address] [place] [address] BLUE CROSS BCBS BARROW [id number] 2021-Pres [phone] PO KISHAN X Cost Share BLUE SHIELD BLUE COST ent [phone] [place] [address]
[2022-09-15 14:09] LABS: Basophils Absolute Auto 0.04 K/uL (0.00-0.30); Basophils Percent Auto 0.5 % (0.0-3.0); Eosinophils Absolute Auto 0.13 K/uL (0.00-0.50); Eosinophils Percent Auto 1.6 % (0.0-7.0); Hematocrit 46.9 % (33.0-51.0); Hemoglobin* 15.2 gm/dL (12.0-16.0); Immature Granulocytes Abs Auto 0.03 K/uL (0.00-0.30); Lymphocytes Percent Auto 11.9 % (20-44); Mean Corpuscular HGB Conc 32 gm/dL (32-36); Mean Corpuscular Hemoglobin 31 pg (26-34); Mean Corpuscular Volume 97 fL (80-100); Monocytes Percent Auto 7.4 % (0.0-11.0); Neutrophils Percent Auto 78.2 % (42.0-72.0); Platelet Count* 235 K/uL (140-440); RDW Coefficient of Variation % 12.9 % (11.5-15.5); Red Blood Count 4.84 m/uL (4.00-5.20); White Blood Count* 8.09 K/uL (4.50-11.00)
[2022-09-15 14:13] LABS: Slide Review Reflex No
[2022-09-15 14:24] LABS: Albumin* 3.8 g/dL (3.3-5.0); Chloride* 90 mmol/L (96-114); Potassium* 4.3 mmol/L (3.6-5.1); Sodium* 132 mmol/L (135-149)
[2022-09-15 14:26] LABS: Aspartate Amino Transferase* 32 U/L (12-35); Bilirubin Total* 0.6 mg/dL (0.1-1.5)
[2022-09-15 14:27] LABS: Alanine Aminotransferase* 34 U/L (4-35); Alkaline Phosphatase* 57 U/L (40-150); Blood Urea Nitrogen* 30 mg/dL (7-30); Carbon Dioxide* 38 mmol/L (20-32); Glucose* 98 mg/dL (60-115); Total Protein* 6.6 g/dL (6.0-8.3)
[2022-09-15 14:28] LABS: Calcium* 8.1 mg/dL (8.4-10.6)
[2022-09-15 14:28] LABS: Appearance Urine Clear (Clear); Bilirubin Urine Negative (Negative); Blood Urine Negative (Negative); Color Urine Yellow (Yellow); Glucose Urine Negative (Negative); Ketones Urine Negative (Negative); Leukocyte Esterase Urine Trace (Negative); Nitrite Urine Negative (Negative); Protein Urine Negative (Negative); Specific Gravity Urine 1.015 (1.000-1.030); Urobilinogen Urine 0.2 (0.2-1.0)
[2022-09-15 14:30] LABS: C Reactive Protein* 0.7 mg/dL (0.5-1.0)
[2022-09-15 14:36] LABS: NT Pro B Type NatriureticPept* 1700 PG/mL (0-125)
[2022-09-15 14:39] LABS: RBC Urine 0-2 (0-2)
[2022-09-15 14:43] LABS: Creatinine* 0.6 mg/dL (0.5-1.5); Estimated Glomerular Filt Rate 94 ml/min
[2022-09-15 14:49] LABS: PCR FLU A Negative PCR FLU A (Negative); PCR FLU B Negative PCR FLU B (Negative)
[2022-09-15 14:55] LABS: SARS PCR* Negative SARS-CoV-2 (Negative)
[2022-09-15] MEDS: FUROSEMIDE 10 MG/ML inj 40 MG IVP (15:05)
--- NOTE | 2022-09-15 16:43 | W.PC.EDHO ---
Primary Language: Polish Preferred Language: Orientation Status: [x] Alert & Oriented [] Slight Confusion [] Known Dx Dementia Transfers By: [x] Assist of 1 [] Assist of 2 [] Lift Active Medications Discontinued Medications Generic Name Dose Route Start Last Admin Trade Name Frantzq PRN Reason Stop Dose Admin Furosemide 40 mg 09/15/22 14:14 09/15/22 15:05 Furosemide 10 Mg/Ml Inj IVP 09/15/22 14:15 40 mg ONCE ONE Administration Description of Symptoms ED Triage Present Problem pt sent by home health nurse per pt due to Description abnormal vitals, pt has no complaints ED Triage Date of Onset of 09/15/22 Symptoms Female History Patient No Oxygen Administration Pulse Oximetry 97 Pulse Oximetry 99 Pulse Oximetry 99 Pulse Oximetry 100 Pulse Oximetry 100 Pulse Oximetry 100 Pulse Oximetry 99 Pulse Oximetry 97 Pulse Oximetry 98 Pulse Oximetry 98 Pulse Oximetry 88 Oxygen Delivery Method Nasal Cannula Oxygen Delivery Method Nasal Cannula Oxygen Delivery Method Nasal Cannula Oxygen Delivery Method Nasal Cannula Oxygen Delivery Method Nasal Cannula Oxygen Delivery Method Nasal Cannula Oxygen Delivery Method Nasal Cannula Oxygen Delivery Method Nasal Cannula Oxygen Delivery Method Nasal Cannula Oxygen Delivery Method Room Air Oxygen Flow Rate 2 Oxygen Flow Rate 2 Oxygen Flow Rate 2 Oxygen Flow Rate 2 Oxygen Flow Rate 2 Oxygen Flow Rate 2 Oxygen Flow Rate 2 Oxygen Flow Rate 2 Oxygen Flow Rate 2
--- NOTE | 2022-09-15 18:10 | P.IMHP_ITS ---
Hospitalist- H&P: HPI History of Present Illness Date Seen: 09/15/22 Chief complaint: Heart issue Narrative: Lucila Flores is a 72 year old female who presented to the emergency room at the behest of her home health care team for hypoxia. Patient has a known history of fluid overload, mild MR, moderate TR, and biatrial enlargement on TTE. She was seen by her PCP last week found to have oxygen saturations in the 87-88% range. She was asymptomatic with this, found to be in the mid 80% range during therapies today, so encouraged to come in for supplemental oxygen and diuresis. Patient does not wear supplemental oxygen at baseline. She remains asymptomatic from her hypoxia. Last TTE performed April 2022: Final Impressions: 1. Normal LV size, mildly increased wall thickness, estimated EF of 55 - 60%. 2. Normal RV size and systolic function. 3. Severe biatrial enlargement. 4. The aortic valve is sclerotic, no stenosis and mild regurgitation. 5. The mitral valve is sclerotic, mild mitral regurgitation. 6. Mild-moderate tricuspid regurgitation. 7. PASP 34 mmHg + RA pressure (estimated to be 8 mmHg by IVC geometry). ? Comparison Compared to prior exam of 09/16/2020, there has been no significant change. Dai follows with Dr. Donahue of Nephrology and during our last visit, he had asked that she increase her Torsemide dose to 40mg BID for 3 days with greater than 3 pounds of weight gain (typically takes 40mg Qam and 20mg Qpm); she last performed this increased dose W-F of last week. Per Dr. Donahue's note, patient's target weight is 172 lb. She has had difficulty staying at this weight. Nephrology noted that if Dai has a difficult time staying at her target weight, torsemide could be increased to 60 mg b.i.d., followed by considering the addition of 5 mg metolazone twice weekly. Dai's only concern for me today is back pain (known history of recent T7 fracture, seen by Neurosurgery). Compliant with back brace at home, needs to wear this during the day. 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 No children, friend and caregiver Natalie is POA. Nonsmoker, no ETOH use. Dai requests DNR/DNI status. Review of Systems Status of ROS: Reports: 10 or more systems reviewed and unremarkable except as noted in History and below [facility] Medical History Acute on chronic combined systolic and diastolic heart failure, NYHA class 2 (04/2022) Acute on chronic right-sided heart failure Angioma of skin Atrial fibrillation with normal ventricular rate (03/2019) Calculus of bile duct (04/2022) Chronic heart failure with preserved ejection fraction History of acute congestive heart failure (2016) History of nuclear stress test Hypertension (01/04/07) Hyponatremia Long-term (current) use of anticoagulants, INR goal 2.0-3.0 Lumbar radiculopathy Mild cognitive impairment (2020) Right middle lobe pneumonia Systolic congestive heart failure Temporal headache Tubular adenoma of colon (2016) Surgical History History of bilateral cataract extraction History of cholecystectomy History of ear surgery History of hysterectomy for benign disease History of tonsillectomy Hx of appendectomy Status post endoscopic retrograde cholangiopancreatography (05/12/22) Family History Mother Brain aneurysm, Onset Age: 65 Father Coronary artery disease, Onset Age: 62 Brother Coronary artery disease, Onset Age: 64 Sister Colon cancer, Onset Age: 56 Social History Narrative: exercises regularly- 1-2/week: exercise bike, twisting , independent living [address], 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, no kids non-smoker rarely consumes alcohol Smoking Status: Never smoker Non-prescribed substance use: denies use service: No Meds Home Medications and Allergies Home Medications Medication Instructions Recorded Confirmed Type alendronate 70 mg tablet 70 mg PO .Every 7 Days 05/11/22 09/15/22 History calcium carbonate 500 mg calcium 1,000 mg PO DAILY 05/11/22 09/15/22 History (1,250 mg) tablet torsemide 20 mg tablet 40 mg PO BID 07/20/22 09/15/22 History cholecalciferol (vitamin D3) 50 2,000 unit PO DAILY 08/03/22 09/15/22 History mcg (2,000 unit) capsule digoxin 125 mcg (0.125 mg) tablet 125 mcg PO DAILY 08/03/22 09/15/22 History potassium chloride 10 mEq 10 meq PO TID 09/08/22 09/15/22 History tablet,extended release(part/cryst) Home Medication Comments: above list is not correct - patient also on Lisinopril, Warfarin, diltiazem, calcitonin nasal spray Allergies Allergy/AdvReac Type Severity Reaction Status Date / Time hydrocortisone Allergy Unknown Verified 09/08/22 14:02 hydrochlorothiazide AdvReac Intermediate hyponatremi Verified 09/08/22 14:02 a amlodipine AdvReac Mild Edema Verified 09/08/22 14:02 Exam Narrative: Exam Narrative: GEN: Alert and sitting comfortably in bed eating dinner when I see her HEENT: Normal external ears, + strabismus, no scleral icterus CV: Irregular rate, No concerning murmurs, rubs, or gallops R: Crackles bilateral bases, air movement decreased Ext: 2-3+ pitting edema, wearing taylor hose bilaterally Skin: No concerning skin lesions or rashes on exposed skin Neuro: Nonfocal, no resting tremor Psych: Appropriate Const: Vital Signs, click to edit/add: Vital Signs - 24 hr 09/15/22 10:14 09/15/22 13:14 09/15/22 13:14 Temperature 97.8 F Pulse Rate Pulse Rate [Right Pulse Oximeter] 85 Respiratory Rate 18 Blood Pressure Blood Pressure [Ri ght Arm] Blood Pressure [Ri ght Upper Arm] 155/77 H Pulse Oximetry 88 98 98 Oxygen Delivery Me thod Room Air Nasal Cannula Oxygen Flow Rate 2 09/15/22 14:11 09/15/22 14:16 09/15/22 14:30 Temperature Pulse Rate 100 Pulse Rate [Right Pulse Oximeter] Respiratory Rate Blood Pressure 151/86 H Blood Pressure [Ri ght Arm] Blood Pressure [Ri ght Upper Arm] Pulse Oximetry 97 99 100 Oxygen Delivery Me thod Nasal Cannula Nasal Cannula Nasal Cannula Oxygen Flow Rate 2 2 2 09/15/22 14:32 09/15/22 15:00 09/15/22 15:02 Temperature Pulse Rate Pulse Rate [Right Pulse Oximeter] Respiratory Rate Blood Pressure 103/42 L 119/93 H Blood Pressure [Ri ght Arm] Blood Pressure [Ri ght Upper Arm] Pulse Oximetry 100 100 99 Oxygen Delivery Me thod Nasal Cannula Nasal Cannula Nasal Cannula Oxygen Flow Rate 2 2 2 09/15/22 15:03 09/15/22 15:32 09/15/22 15:33 Temperature Pulse Rate Pulse Rate [Right Pulse Oximeter] Respiratory Rate Blood Pressure 103/73 Blood Pressure [Ri ght Arm] Blood Pressure [Ri ght Upper Arm] Pulse Oximetry 99 97 97 Oxygen Delivery Me thod Nasal Cannula Nasal Cannula Nasal Cannula Oxygen Flow Rate 2 2 2 09/15/22 16:01 09/15/22 16:35 09/15/22 17:18 Temperature 97.8 F Pulse Rate Pulse Rate [Right Pulse Oximeter] Respiratory Rate 18 Blood Pressure 124/79 Blood Pressure [Ri ght Arm] 127/97 H Blood Pressure [Ri ght Upper Arm] Pulse Oximetry 97 97 Oxygen Delivery Me thod Nasal Cannula Nasal Cannula Nasal Cannula Oxygen Flow Rate 2 2 2 09/15/22 17:18 09/15/22 17:38 Temperature Pulse Rate Pulse Rate [Right Pulse Oximeter] Respiratory Rate 18 28 H Blood Pressure Blood Pressure [Ri ght Arm] Blood Pressure [Ri ght Upper Arm] Pulse Oximetry 93 94 Oxygen Delivery Me thod Nasal Cannula Nasal Cannula Oxygen Flow Rate 2 2 Hospitalist - H&P: Result Labs Labs: Short CBC 09/15/22 Range/Units 13:52 WBC 8.09 (4.50-11.00) K/uL Hgb 15.2 (12.0-16.0) gm/dL Hct 46.9 (33.0-51.0) % Plt Count 235 (140-440) K/uL BMP 09/15/22 13:52 Sodium 132 L Potassium 4.3 Chloride 90 L Carbon Dioxide 38 H BUN 30 Creatinine 0.6 Glucose 98 Calcium 8.1 L Liver Function 09/15/22 Range/Units 13:52 Total Bilirubin 0.6 (0.1-1.5) mg/dL AST 32 (12-35) U/L ALT 34 (4-35) U/L Alkaline Phosphatase 57 (40-150) U/L Albumin 3.8 (3.3-5.0) g/dL Urine 09/15/22 Range/Units 14:05 Urine Color Yellow (Yellow) Urine Appearance Clear (Clear) Urine pH 5.0 (5.0-8.5) Ur Specific [place] 1.015 (1.000-1.030) Urine Protein Negative (Negative) Urine Glucose (UA) Negative (Negative) Assessment and Plan Assessment and plan (1) Hypoxia: Status: Acute Assessment and Plan: - acute hypoxic respiratory failure is likely secondary to pulmonary edema - repeat TTE to assess LV function - no evidence of infection (2) Fluid overload: Status: Acute Assessment and Plan: - will increase her torsemide as recommended by Nephrology at recent outpatient visit (60 mg BID), consider the addition of metolazone (3) Compression fracture of thoracic vertebra, non-traumatic: Problem comment: Severe TH 7 compression fracture Status: Acute Assessment and Plan: - continue to wear brace during the day (4) Long-term (current) use of anticoagulants, INR goal 2.0-3.0: Problem comment: Indication: Afib. Duration: Lifelong Status: Chronic Assessment and Plan: - continue Coumadin (5) Atrial fibrillation with normal ventricular rate: Status: Acute Assessment and Plan: - rate controlled at this time, continue home meds (6) Chronic heart failure with preserved ejection fraction: Status: Chronic Plan - per above - Coumadin for prophylaxis - patient lives independently with and has quite a bit of home health support
[2022-09-15 20:15] LABS: Magnesium* 2.3 mg/dL (1.5-2.6)
[2022-09-15] MEDS: TORSEMIDE 20 MG TABLET 60 MG PO (20:47)
[2022-09-15] MEDS: POTASSIUM CHLORIDE 10 MEQ CAPSULE ER PO (20:47)
--- NOTE | 2022-09-15 22:44 | PC.NURSE ---
Shift [id number]- Patient naps throughout this evening and remains in bed. She continues on 2.5L O2 with saturations >90%. She is slightly confused.
[2022-09-16] VITALS (8 sets, daily range): BP systolic 88–141; BP diastolic 60–86; PULSE 63–123; RESP 18–20; TEMP 36.6–37; O2SAT 92–95
[2022-09-16] MEDS: ACETAMINOPHEN 325 MG TABLET 975 MG PO ×3 (01:03→20:45)
[2022-09-16 07:05] LABS: Basophils Absolute Auto 0.04 K/uL (0.00-0.30); Basophils Percent Auto 0.5 % (0.0-3.0); Eosinophils Percent Auto 1.4 % (0.0-7.0); Hematocrit 45.6 % (33.0-51.0); Hemoglobin* 14.7 gm/dL (12.0-16.0); Lymphocytes Percent Auto 11.6 % (20-44); Mean Corpuscular HGB Conc 32 gm/dL (32-36); Mean Corpuscular Hemoglobin 32 pg (26-34); Mean Corpuscular Volume 98 fL (80-100); Monocytes Percent Auto 8.5 % (0.0-11.0); Neutrophils Percent Auto 77.9 % (42.0-72.0); Platelet Count* 215 K/uL (140-440); RDW Coefficient of Variation % 12.9 % (11.5-15.5); Red Blood Count 4.65 m/uL (4.00-5.20); White Blood Count* 7.39 K/uL (4.50-11.00)
[2022-09-16 07:10] LABS: Slide Review Reflex No
[2022-09-16 07:17] LABS: Chloride* 93 mmol/L (96-114); Potassium* 3.9 mmol/L (3.6-5.1); Sodium* 135 mmol/L (135-149)
[2022-09-16 07:19] LABS: INR 1.32 (0.91-1.10); Prothrombin Time 17.2 Seconds
[2022-09-16 07:20] LABS: Blood Urea Nitrogen* 22 mg/dL (7-30); Calcium* 7.7 mg/dL (8.4-10.6); Carbon Dioxide* 38 mmol/L (20-32); Creatinine* 0.5 mg/dL (0.5-1.5); Est. Creatinine Clearance* 70.68; Estimated Glomerular Filt Rate 98 ml/min; Glucose* 96 mg/dL (60-115)
[2022-09-16 07:26] LABS: NT Pro B Type NatriureticPept* 2050 PG/mL (0-125)
--- NOTE | 2022-09-16 07:38 | PC.NURSE ---
23-07: A x 1/SBA with?walker. Up to BR frequently. 2600mL urine out this shift, tolerates ambulating well. Woke pt around 0400 for VS, pt was diaphoretic, required a new gown,?temperature 98.6, Tylenol given at 0103, pt declined ice pack or cool cloth?and stated she was feeling ?fine?, continued?to monitor, temp remained 98.6 till end of shift & pt less diaphoretic. Pt up in chair, breakfast ordered. Tele = Afib/AFlutter. HR 70s-90s. 2.5L O2 via NC, maintaining 90-92%.?
[2022-09-16] MEDS: FUROSEMIDE 10 MG/ML inj 80 MG IVP (07:49)
[2022-09-16] MEDS: POTASSIUM BICARB 25 MEQ EFFERVESCENT TAB PO (07:49)
[2022-09-16] MEDS: TORSEMIDE 20 MG TABLET 60 MG PO ×2 (08:31→20:45)
[2022-09-16] MEDS: DIGOXIN 125 MCG TABLET PO (08:32)
[2022-09-16] MEDS: METOPROLOL SUCCINATE (XL) 50 MG TAB 150 MG PO (08:32)
[2022-09-16] MEDS: dilTIAZem 180 MG CAP (CD) 360 MG PO (08:32)
[2022-09-16] MEDS: lisinopriL 20 MG TABLET 40 MG PO (08:34)
[2022-09-16] MEDS: CALCITONIN SALMON NASAL SPRAY 200 UNIT 1 SPRAY NOSTRIL-B (09:57)
[2022-09-16] MEDS: POTASSIUM CHLORIDE 10 MEQ CAPSULE ER PO ×3 (10:00→20:45)
--- NOTE | 2022-09-16 14:03 | NUTR.NU ---
RDN with MD consult related to low sodium diet education for CHF. RDN visited with patient whom agreed to diet education. Nutrition education provided on a low sodium diet related to congestive heart failure. Verbal and written information provided. Recommend limiting sodium to 2,000 mg per day. Discussed foods recommended and to avoid. Handouts provided from [facility] on heart failure nutrition therapy, sodium content of foods, heart healthy label reading tips, sodium-free flavoring tips and heart healthy cooking and shopping tips. Patient verbalized understanding. Patient reported she usually eats homemade meals, and tries to limit her intake of sodium. RDN's contact information was provided and patient was encouraged to call with questions.
--- NOTE | 2022-09-16 16:03 | PC.NURSE ---
Tele indicates atrial flutter. Pt had 80 mg of IV lasix with 2150 out plus 3 wet pull-up pads. Up to void 7 times on day shift. 25meQ of effervescent potassium. No dysphagia with medications. Good appetite. Pt is DEERING and has bilateral hearing aides in place. My batteries are low. Pt resides at 3[address]/CC with her Bakari. Pt slid out of her recliner to the floor, I'm not hurt. Pt has frequent requests for staff, bed and chair alarms engaged. Standing scale weight 173 mid morning. Pt reminded to call for assist and never get out of her chair or bed by herself. Pt has a brace she normally wears for hx of degenerative T7 vertebrae, reminded to be cautious, move slowly and stay focused when she is up in the room with GB and walker. Report to Mohini Chong RN for evening shift.
--- NOTE | 2022-09-16 17:31 | P.IMPN_ITS ---
Progress Note: A&P Assessment and plan (1) Acute on chronic combined systolic and diastolic heart failure, NYHA class 2: Problem details: Uncertain what triggered this exacerbation. Patient does get help with her medication set up Status: Acute (2) Hypoxia: Problem details: Due primarily to congestive heart failure exacerbation Status: Acute (3) Physical deconditioning: Problem details: Therapy to evaluate Status: Acute (4) Hyponatremia: Status: Acute (5) Atrial fibrillation with normal ventricular rate: Status: Acute (6) Mild cognitive impairment: Problem details: Natalie Steven helps Status: Chronic Plan Continue in hospital for ongoing diuresis. Monitor fluid status and electrolytes. Anticipate discharge to home when heart failure is better optimized. Time Spent With Patient Total time spent: Total time spent today is 45 minutes, 30 minutes in coordination of care discussing with patient other providers ongoing evaluation and management of heart failure Subjective Date Seen: 09/16/22 Interval history: 72-year-old female seen in followup of hospital admission with heart failure. Patient reports feeling a little better today. She thinks her breathing is a little better. She has had no cough or fever or chest pain. Exam Narrative: Exam Narrative: Earlier today the examination shows that she has bibasilar crackles noted. Mild increase of work of breathing. Cardiovascular: S1, S2, irregular rhythm. Abdomen: Bowel sounds active. Abdomen is soft without tenderness. Extremities with moderate edema. Repeat examination this afternoon shows improvement in her basilar crackles. Better air exchange. She reports she is feeling better with her breathing as well. Const: Vital Signs, click to edit/add: Vital Signs - 24 hr 09/15/22 17:38 09/15/22 20:20 09/15/22 20:20 Temperature Pulse Rate 85 Pulse Rate [Right Pulse Oximeter] Respiratory Rate 28 H Blood Pressure [Ri ght Arm] Pulse Oximetry 94 95 Oxygen Delivery Me thod Nasal Cannula Nasal Cannula Oxygen Flow Rate 2 3 09/15/22 19:13 09/15/22 23:00 09/15/22 23:00 Temperature Pulse Rate 85 79 Pulse Rate [Right Pulse Oximeter] 71 Respiratory Rate 24 Blood Pressure [Ri ght Arm] Pulse Oximetry Oxygen Delivery Me thod Oxygen Flow Rate 09/15/22 23:00 09/16/22 03:00 09/16/22 08:32 Temperature 98 F 98.6 F Pulse Rate 123 H Pulse Rate [Right Pulse Oximeter] 71 89 Respiratory Rate 24 20 Blood Pressure [Ri ght Arm] 128/88 141/86 H Pulse Oximetry 92 92 Oxygen Delivery Me thod Nasal Cannula Nasal Cannula Oxygen Flow Rate 2.5 2.5 09/16/22 07:00 09/16/22 07:00 09/16/22 15:00 Temperature 98 F Pulse Rate 104 H Pulse Rate [Right Pulse Oximeter] 119 H 72 Respiratory Rate 20 18 Blood Pressure [Ri ght Arm] 119/81 Pulse Oximetry 95 Oxygen Delivery Me thod Oxygen Flow Rate 2.5 09/16/22 15:00 09/16/22 15:00 09/16/22 13:40 Temperature 97.9 F 97.9 F Pulse Rate 63 Pulse Rate [Right Pulse Oximeter] 72 83 Respiratory Rate 18 20 Blood Pressure [Ri ght Arm] 107/63 88/60 L Pulse Oximetry 95 94 Oxygen Delivery Me thod Nasal Cannula Nasal Cannula Oxygen Flow Rate 2 2.5 Labs Labs: Laboratory Results - last 24 hr 09/15/22 09/15/22 09/16/22 13:52 13:52 05:46 WBC 7.39 RBC 4.65 Hgb 14.7 Hct 45.6 MCV 98 MCH 32 MCHC 32 RDW Coeff of [place] 12.9 Plt Count 215 Neut % (Auto) 77.9 H Lymph % (Auto) 11.6 L [place] % (Auto) 8.5 Eos % (Auto) 1.4 Baso % (Auto) 0.5 Neut # (Auto) 5.80 Lymph # (Auto) 0.90 [place] # (Auto) 0.60 Eos # (Auto) 0.10 Baso # (Auto) 0.04 Abs Immat Gran (auto) 0.00 Imm/Tot Granulo (auto) Not Reportable 0.0 INR Sodium Potassium Chloride Carbon Dioxide BUN Creatinine Estimated Creat Clear Estimated GFR Glucose Calcium Magnesium 2.3 NT-Pro-B Natriuret Pep 09/16/22 09/16/22 05:46 05:46 WBC RBC Hgb Hct MCV MCH MCHC RDW Coeff of [place] Plt Count Neut % (Auto) Lymph % (Auto) [place] % (Auto) Eos % (Auto) Baso % (Auto) Neut # (Auto) Lymph # (Auto) [place] # (Auto) Eos # (Auto) Baso # (Auto) Abs Immat Gran (auto) Imm/Tot Granulo (auto) INR 1.32 H Sodium 135 Potassium 3.9 Chloride 93 L Carbon Dioxide 38 H BUN 22 Creatinine 0.5 Estimated Creat Clear 70.68 Estimated GFR 98 Glucose 96 Calcium 7.7 L Magnesium NT-Pro-B Natriuret Pep 2049 H
[2022-09-16] MEDS: WARFARIN 2.5 MG TABLET 7.5 MG PO (18:53)
--- NOTE | 2022-09-16 23:19 | PC.NURSE ---
Shift note [id number]: Pt friendly and cooperative. C/o 2/10 low back pain which has been well controlled with PRN Tylenol per pt report. VS WNL and LS coarse in bases, more so on right side. +3 edema to LE's bilaterally, legs elevated as tolerated.
[2022-09-17] VITALS (7 sets, daily range): BP systolic 90–132; BP diastolic 56–88; PULSE 72–97; RESP 20–24; TEMP 36.7; O2SAT 88–94
--- NOTE | 2022-09-17 06:20 | PC.NURSE ---
: SBA with gb and walker. Up to BR freq. 2L O2 and maintaining >90%. VSS. Tele = afib/flutter.
[2022-09-17 07:14] LABS: HCO3 VBG 47 mmol/L (21-28); PO2 VBG 20.8 mmHG (25-47); pH VBG 7.328 (7.32-7.43)
[2022-09-17 07:17] LABS: PCO2 VBG 90 mmHG (40-50)
[2022-09-17 07:31] LABS: Chloride* 88 mmol/L (96-114); INR 1.13 (0.91-1.10); Potassium* 4.6 mmol/L (3.6-5.1); Prothrombin Time 15.2 Seconds; Sodium* 134 mmol/L (135-149)
[2022-09-17 07:34] LABS: Creatinine* 0.6 mg/dL (0.5-1.5); Est. Creatinine Clearance* 61.18; Estimated Glomerular Filt Rate 94 ml/min
[2022-09-17 07:35] LABS: Blood Urea Nitrogen* 28 mg/dL (7-30); Calcium* 7.3 mg/dL (8.4-10.6); Glucose* 120 mg/dL (60-115)
[2022-09-17 07:50] LABS: Carbon Dioxide* 42 mmol/L (20-32)
--- NOTE | 2022-09-17 07:50 | PC.NURSE ---
Critical value reported by lab - CO2 42, Dr. Marley notified.
[2022-09-17] MEDS: DIGOXIN 125 MCG TABLET PO (08:39)
[2022-09-17] MEDS: POTASSIUM CHLORIDE 10 MEQ CAPSULE ER PO ×3 (08:39→20:45)
[2022-09-17] MEDS: dilTIAZem 180 MG CAP (CD) 360 MG PO (08:39)
[2022-09-17] MEDS: lisinopriL 20 MG TABLET 40 MG PO (08:39)
[2022-09-17] MEDS: METOPROLOL SUCCINATE (XL) 50 MG TAB 150 MG PO (08:40)
[2022-09-17] MEDS: TORSEMIDE 20 MG TABLET 60 MG PO ×2 (08:40→16:02)
[2022-09-17] MEDS: CALCITONIN SALMON NASAL SPRAY 200 UNIT 1 SPRAY NOSTRIL-B (08:49)
--- NOTE | 2022-09-17 10:45 | RESP.RT ---
Patient is currently on 1L NC and and SATing 92%. SATs dorp to 89% on room air with activity. She states that she has an Alb inhaler.
--- NOTE | 2022-09-17 10:55 | CRLHL7_ITS ---
For Patients: As a result of the Century Cures Act, medical imaging exams and procedure reports are released immediately into your electronic medical record. You may view this report before your referring provider. If you have questions, please contact your health care provider. Indication: Hypoxia and heart failure. Technique: Chest 1 view. Comparison: 09/15/2022. Findings/Impression: Cardiovascular and mediastinum: Persistent marked cardiomegaly. Moderate pulmonary vascular congestion may have slightly improved. No overt edema. Lungs and pleural space: Lungs are clear. No sign of infiltrate or mass. No sign of pleural effusion. No pneumothorax. Bones and soft tissues: No acute findings. Dictated by Demond Stevenson MD @ 09/17/2022 12:12:07 PM (Electronically Signed)
--- NOTE | 2022-09-17 13:23 | PM.IMPN1 ---
Progress Note: A&P Assessment and plan (1) Acute on chronic combined systolic and diastolic heart failure, NYHA class 2: Problem details: Still has hypoxia. Vigorous diuresis has her with a contraction alkalosis. Chest x-ray still shows what looks like pulmonary edema. Continue diuresis Status: Acute (2) CO2 retention: Problem details: PCO2 on venous blood gas is 90. Mild acidosis with this. I favor sleep apnea and hypoventilation as the cause for this primarily. Will need to be very cautious with supplemental oxygen. Check nocturnal oximetry tonight. Status: Acute (3) Hypoxia: Problem details: Due primarily to congestive heart failure exacerbation. No obvious pneumonia or COPD or other primary lung disease Status: Acute (4) Physical deconditioning: Problem details: Therapy to evaluate and treat Status: Acute (5) Hyponatremia: Status: Acute (6) Atrial fibrillation with normal ventricular rate: Problem details: Adequate rate control. Anticoagulation is sub therapeutic. Increased warfarin dose Status: Acute (7) Mild cognitive impairment: Problem details: Natalie abreu Status: Chronic Plan Continue in-hospital for optimizing cardia respiratory status. Nocturnal oximetry tonight. She may need home oxygen for her heart failure but this puts her at risk of CO2 narcosis with her CO2 retention. Time Spent With Patient Total time spent: Total time spent today is 50 minutes, 30 minutes in coordination of care and discussing with other providers and patient ongoing evaluation management of hypoxia, heart failure and sleep apnea Subjective Date Seen: 09/17/22 Interval history: 72-year-old female seen in followup of hospitalization for progressive dyspnea and hypoxia. She reports her breathing is a little better today but she still requiring supplemental oxygen at 2 L per nasal cannula. She has no other concerns today. She reports a good appetite. No chest pain, abdominal pain or nausea. Exam Narrative: Exam Narrative: She is alert and appears in no distress. Mood and affect are bright. Respirations with a few diffusely scattered crackles. No marked wheezing. Fair air exchange in all lung mandel. No consolidation. Cardiovascular: S1, S2, irregularly irregular rhythm. Abdomen is soft without tenderness. Extremities with mild edema. Const: Vital Signs, click to edit/add: Vital Signs - 24 hr 09/16/22 15:00 09/16/22 15:00 09/16/22 15:00 Temperature 97.9 F Pulse Rate 63 Pulse Rate [Right Pulse Oximeter] 72 72 Respiratory Rate 18 18 Blood Pressure [Ri ght Arm] 107/63 Pulse Oximetry 95 Oxygen Delivery Me thod Nasal Cannula Oxygen Flow Rate 2 09/16/22 13:40 09/16/22 19:00 09/16/22 19:02 Temperature 97.9 F 98.3 F Pulse Rate 71 Pulse Rate [Right Pulse Oximeter] 83 82 Respiratory Rate 20 18 Blood Pressure [Ri ght Arm] 88/60 L 109/64 Pulse Oximetry 94 92 Oxygen Delivery Me thod Nasal Cannula Nasal Cannula Oxygen Flow Rate 2.5 2 09/16/22 23:00 09/16/22 23:00 09/16/22 23:00 Temperature 97.8 F Pulse Rate 78 Pulse Rate [Right Pulse Oximeter] 92 92 Respiratory Rate 20 20 Blood Pressure [Ri ght Arm] 124/71 Pulse Oximetry 93 Oxygen Delivery Me thod Nasal Cannula Oxygen Flow Rate 2 09/17/22 03:00 09/17/22 08:39 09/17/22 07:00 Temperature 98.1 F Pulse Rate 94 97 Pulse Rate [Right Pulse Oximeter] 72 Respiratory Rate 24 Blood Pressure [Ri ght Arm] 132/88 Pulse Oximetry 94 Oxygen Delivery Me thod Nasal Cannula Oxygen Flow Rate 2 09/17/22 07:00 09/17/22 07:00 Temperature 98.1 F Pulse Rate Pulse Rate [Right Pulse Oximeter] 92 92 Respiratory Rate 24 24 Blood Pressure [Ri ght Arm] 109/60 Pulse Oximetry 89 Oxygen Delivery Me thod Nasal Cannula Oxygen Flow Rate 2 Documenting provider has reviewed patient's vital signs: yes Labs Labs: Laboratory Results - last 24 hr 09/17/22 09/17/22 09/17/22 06:28 06:28 06:28 INR 1.13 H VBG pH 7.328 VBG pCO2 90 H* VBG pO2 20.8 L VBG HCO3 47 H Sodium 134 L Potassium 4.6 Chloride 88 L Carbon Dioxide 42 H* BUN 28 Creatinine 0.6 Estimated Creat Clear 61.18 Estimated GFR 94 Glucose 120 H Calcium 7.3 L
[2022-09-17] MEDS: WARFARIN 2.5 MG TABLET 7.5 MG PO (18:22)
--- NOTE | 2022-09-17 18:50 | PC.NURSE ---
Pt. pleasant and cooperative. Alert and oriented.?SBA with gb and walker. Up to BR freq. 2L O2 and maintaining >90%. VSS. Tele=afib/flutter.
[2022-09-17 19:23] LABS: D Dimer Quantitative* 0.73 ug/ml (0.00-0.50)
--- NOTE | 2022-09-17 20:20 | RESP.RT ---
Nocturnal Oximetry set up on patient at bedside.
[2022-09-18 03:00] VITALS: BP 133/76; PULSE 95; RESP 20; TEMP 36.7; O2SAT 85
[2022-09-18] MEDS: ACETAMINOPHEN 325 MG TABLET 975 MG PO (03:59)
--- NOTE | 2022-09-18 06:50 | PC.NURSE ---
END OF SHIFT NOTE: PT PLEASANT AND COOPERATIVE. PT DENIES CP AND SOB. PT SLIGHTLY NAUSEATED THAT WAS RELIEVED WITH THE USE OF AN AROMATHERAPY PATCH. PT STARTED NOC SLEEP OXIMETRY TEST @2145; PT NOTED TO BE UP ROUGHLY EVERY HOUR THROUGHOUT THE NIGHT. AMBULATES WITH WALKER, GB, A1. 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
[2022-09-18 07:00] VITALS: BP 154/86; PULSE 86; PULSE 90; RESP 20; TEMP 37; O2SAT 86
[2022-09-18 07:00] LABS: HCO3 VBG 42 mmol/L (21-28); PCO2 VBG 59 mmHG (40-50); PO2 VBG 41.4 mmHG (25-47); pH VBG 7.465 (7.32-7.43)
[2022-09-18 07:25] LABS: Chloride* 90 mmol/L (96-114); Sodium* 134 mmol/L (135-149)
[2022-09-18 07:26] LABS: Potassium* 4.3 mmol/L (3.6-5.1)
[2022-09-18 07:27] LABS: Prothrombin Time 15.9 Seconds
[2022-09-18 07:28] LABS: Carbon Dioxide* 37 mmol/L (20-32); Creatinine* 0.5 mg/dL (0.5-1.5); Est. Creatinine Clearance* 61.28; Estimated Glomerular Filt Rate 98 ml/min
[2022-09-18 07:29] LABS: Blood Urea Nitrogen* 26 mg/dL (7-30); Glucose* 125 mg/dL (60-115)
--- NOTE | 2022-09-18 07:43 | PM.IMPN1 ---
Progress Note: A&P Assessment and plan (1) Daytime somnolence: Problem details: suspected to be due to sleep apnea, CO2 narcosis. CT this am; no PE, atelactasis and small effusions noted. nocturnal oximetry shows severe and consistent apnea in need of sleep study; ABG on day of discharge: continue home therapies, respiratory hygiene. Status: Acute (2) CO2 retention: Problem details: sleep apnea and hypoventilation as the cause for this primarily. home o2, but limited to 3L, until sleep study with o2 bleed in is prescribed and set up. Status: Acute (3) Acute on chronic combined systolic and diastolic heart failure, NYHA class 2: Problem details: will discharge on demedex at recommended doses from cardiology Status: Acute (4) Physical deconditioning: Problem details: chronic; rib fractures, severe T8 compression fracture, general debility. Status: Acute (5) Compression fracture of thoracic vertebra, non-traumatic: Problem details: T8 compression fracture with 8 mm cortical retropulsion, severe spinal canal stenosis and focal cord compression. Study lumbar MRI, 08/02/2022 Advice from neurosurgery in 08/05: She will require a T- 8 corpectomy via transthoracic approach supplemented by a posterior instrumentation and fusion with associated decompression at the level of T8. The instrumentation has to be from T6 to T10. This is a lengthy operation with a lengthy recovery for anybody, but more significantly for somebody her age and with medical comorbidities. She has a degree of osteoporosis that could put her at risk of pseudoarthrosis or hardware failure. She is going to discuss with her and caregiver about proceeding. She understands the risks involved. I did explain to them that the risk of surgery is that of spinal cord injury with paralysis from the waist down, but at the same time if things are left alone she still has the risk of continuing compression of the spinal cord. There is a risk of pseudoarthrosis and adjacent level disease. I am going to order a brace for her. It has to be a TLSO for FOOD AND BEVERAGE INTERN brace and a CT scan of the thoracic spine to better evaluate the bone anatomy and the bone quality Status: Acute (6) Long-term (current) use of anticoagulants, INR goal 2.0-3.0: Problem details: Indication: Afib. Duration: Lifelong Status: Chronic (7) Atrial fibrillation with normal ventricular rate: Problem details: Adequate rate control. continue OAC. Status: Acute (8) Rib fractures: Problem details: from this summer likely same time frame as thoracic fracture. likely from pneumonia-chronic coughing this summer. Status: Acute (9) Chronic heart failure with preserved ejection fraction: Status: Chronic Subjective Date Seen: 09/18/22 Interval history: Daily Progress Note - Hospital Medicine #: 4 CC: hypoxia; CHF, backpain, CO2 retention OVERNIGHT UPDATES FROM STAFF & MED, LAB, IMAGING UPDATES END OF SHIFT NOTE: PT PLEASANT AND COOPERATIVE. PT DENIES CP AND SOB. PT SLIGHTLY NAUSEATED THAT WAS RELIEVED WITH THE USE OF AN AROMATHERAPY PATCH. PT STARTED NOC SLEEP OXIMETRY TEST @2145; PT NOTED TO BE UP ROUGHLY EVERY HOUR THROUGHOUT THE NIGHT. AMBULATES WITH WALKER, GB, A1. 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 Afebrile Blood pressure 133/76 112/56, 108/62 Pulse rate 70s to 80s Respiratory rate 20s Pulse ox high 80s, on room air Weight has decreased dramatically with the increased to torsemide, 90.7 down to 78.6 Completed nocturnal oximetry monitoring Venous blood gas notes dramatic improvement in her CO2 retention, yesterday morning it was 90 and this morning it is 59. Echo reviewed this hospitalization Normal LV size. And function. EF 65-70% RV size and function normal. Moderate to severe TR. Severely enlarged left atrium. Mild pulmonary hypertension Med review Review of Systems: See subjective Cardiac: No new chest pain/pressure/palpitations. Respiratory: no new dyspnea. GI: No abdominal bloating Objective: Vitals: see above Lungs: Clear. Cardiac: S1S2. Disposition/Potential discharge - Likely to return to previous living situation. Total time is 35 minutes with greater than 50% spent in counseling and coordination of care. Exam Const: Vital Signs, click to edit/add: Vital Signs - 24 hr 09/17/22 08:39 09/17/22 11:00 09/17/22 15:00 Temperature 98.1 F Pulse Rate 94 Pulse Rate [Apical ] Pulse Rate [Right Pulse Oximeter] 97 83 Respiratory Rate 24 24 Blood Pressure [Ri ght Arm] 90/76 Pulse Oximetry 93 Oxygen Delivery Me thod Nasal Cannula Oxygen Flow Rate 2 09/17/22 15:00 09/17/22 15:00 09/17/22 19:45 Temperature 98.1 F Pulse Rate 74 79 Pulse Rate [Apical ] Pulse Rate [Right Pulse Oximeter] 83 Respiratory Rate 24 Blood Pressure [Ri ght Arm] 108/62 Pulse Oximetry 93 Oxygen Delivery Me thod Nasal Cannula Oxygen Flow Rate 2 09/17/22 19:45 09/17/22 23:00 09/17/22 23:00 Temperature 98.1 F Pulse Rate 79 Pulse Rate [Apical ] 80 80 Pulse Rate [Right Pulse Oximeter] Respiratory Rate 20 20 Blood Pressure [Ri ght Arm] 112/56 L Pulse Oximetry 92 Oxygen Delivery Me thod Nasal Cannula Oxygen Flow Rate 1 09/17/22 23:00 09/18/22 03:00 Temperature 98.0 F Pulse Rate Pulse Rate [Apical ] Pulse Rate [Right Pulse Oximeter] 95 Respiratory Rate 20 20 Blood Pressure [Ri t Arm] 133/76 Pulse Oximetry 88 85 L Oxygen Delivery Me thod Room Air Room Air Oxygen Flow Rate Labs Labs: Laboratory Results - last 24 hr 09/16/22 09/17/22 09/17/22 05:46 06:28 06:28 INR 1.13 H D-Dimer Quant (PE/DVT) 0.73 H VBG pH VBG pCO2 VBG pO2 VBG HCO3 Carbon Dioxide 42 H* 09/18/22 06:14 INR D-Dimer Quant (PE/DVT) VBG pH 7.465 H VBG pCO2 59 H VBG pO2 41.4 VBG HCO3 42 H Carbon Dioxide
--- NOTE | 2022-09-18 08:38 | CRLHL7_ITS ---
For Patients: As a result of the Century Cures Act, medical imaging exams and procedure reports are released immediately into your electronic medical record. You may view this report before your referring provider. If you have questions, please contact your health care provider. INDICATION: Low O2 COMPARISON: CT 04/28/2022 TECHNIQUE: CT volumetric acquisition was performed of the thorax during intravenous infusion of 95 cc Isovue nonionic intravenous contrast. Please note that all CT scans at this facility use dose modulation, iterative reconstruction, and/or weight-based dosing when appropriate to reduce radiation dose to as low as reasonably achievable. FINDINGS: There is no pulmonary embolism in the main, lobar or segmental pulmonary arteries. Cardiomegaly. Mild air in the biliary tree likely from prior sphincterotomy. Fusiform thickening of the left adrenal gland. No splenomegaly. Atherosclerotic disease. No aneurysm. Mildly prominent mediastinal lymph nodes are similar. Mildly prominent axillary lymph nodes are also similar. Bilateral breast tissue is unremarkable. Trace effusions are present bilaterally with adjacent atelectasis/scarring. Rib fractures deformity of the right 5th, 6th, 7th and 8th ribs are new compared to the prior exam. Numerous left-sided rib fractures are also new. There is no pneumothorax. Patchy ground-glass opacities are located within both lower lobes, the lingula and right middle lobe. IMPRESSION: No evidence of pulmonary thromboembolism. Cardiomegaly. Trace effusions with adjacent atelectasis. Persistent patchy foci of ground-glass densities bilaterally may represent chronic small airway disease. Multiple bilateral rib fractures which are new compared to the prior study. Please note that all CT scans at this facility use dose modulation, iterative reconstruction, and/or weight-based dosing when appropriate to reduce radiation dose to as low as reasonably achievable. Dictated by Ed Luong MD @ 09/18/2022 10:17:39 AM (Electronically Signed)
[2022-09-18 08:42] VITALS: PULSE 118
[2022-09-18] MEDS: POTASSIUM CHLORIDE 10 MEQ CAPSULE ER PO ×2 (08:42→14:03)
[2022-09-18] MEDS: CALCITONIN SALMON NASAL SPRAY 200 UNIT 1 SPRAY NOSTRIL-B (08:42)
[2022-09-18] MEDS: lisinopriL 20 MG TABLET 40 MG PO (08:42)
[2022-09-18] MEDS: DIGOXIN 125 MCG TABLET PO (08:42)
[2022-09-18] MEDS: TORSEMIDE 20 MG TABLET 60 MG PO (08:43)
[2022-09-18] MEDS: dilTIAZem 180 MG CAP (CD) 360 MG PO (08:43)
[2022-09-18] MEDS: METOPROLOL SUCCINATE (XL) 50 MG TAB 150 MG PO (08:43)
[2022-09-18 08:50] LABS: Ionized Calcium* 0.99 mmol/L (1.11-1.30)
[2022-09-18 10:41] LABS: NT Pro B Type NatriureticPept* 2600 PG/mL (0-125)
[2022-09-18 10:46] LABS: Troponin I* < 0.01 ng/mL (0.01-0.04)
[2022-09-18 11:00] VITALS: BP 134/48; PULSE 85; RESP 20; TEMP 36.4; O2SAT 94
[2022-09-18 12:07] LABS: Base Excess ABG 11.8 mmol/L (-3.0-3.0); HCO3 ABG 40 mmol/L (21-28); Oxygen Saturation ABG 95 % (92-100); PO2 ABG 74.2 mmHG (80-105); TCO2 ABG 35 mmol/l (21-30); pH ABG 7.39 (7.35-7.45)
[2022-09-18 12:09] LABS: ABG PCO2 67 mmHG (35-45)
--- NOTE | 2022-09-18 12:13 | PC.NURSE ---
shift note: critical lab called PCO2 67. Dr. Rivero notified
[2022-09-18 12:58] VITALS: O2SAT 83; O2SAT 85; O2SAT 90
--- NOTE | 2022-09-18 13:04 | RESP.3PART ---
3 Part Home O2 Testing Summary RT 3 Part Home O2 Testing Summary Start: 09/18/22 12:57 Freq: Status: Active Protocol: Document 09/18/22 12:58 EDU (Rec: 09/18/22 13:01 EDU [id number]) 3 Part Home O2 Testing Summary The following is a summary of the 3 Part O2 Testing Evaluation Date/Time of Testing Date 09/18/22 Time 12:55 Insurance Policy Number [id number] Step 1 SAT on room air at rest (%) 85 Step 2 SAT on room air while exercising (%) 83 Step 3 SAT on supplemental O2 while exercising 90 (%) Liters of supplemental O2 needed while 3 exercising (L) O2 Delivery O2 delivered via Nasal Cannula Comments Comments Patient SAT on room air at rest is 85% and requires 2L NC to keep SAT at 90%. Patient SAT on room air with activity is 83% and requires 3L NC to keep SAT at 90%.
--- NOTE | 2022-09-18 13:32 | W.PM.HOT ---
Acute Home Oxygen Therapy Acute Home Oxygen Therapy Provider Note Provider Note: Patient was admitted on 09/15/22 at 19:03 and will be discharging on 09/18/22 Patient is desaturating with SATs of 83 on room air due to chronic CHF. Alternative therapies have been attempted and have not been successful in maintaining the patient's saturation level above 88%. Supplemental O2 is required. This patient is mobile within the home and requires portability.
--- NOTE | 2022-09-18 14:41 | PC.NURSE ---
Pt. pleasant and cooperative. Alert and oriented.?SBA with gb and walker. Up to BR freq. 2L O2 and maintaining >90%. VSS. Tele=afib/flutter.
--- NOTE | 2022-09-18 16:25 | PM.DS1 ---
DS: Providers Provider Date Seen: 09/18/22 Date of admission: 09/15/22 19:03 Primary care physician: Yoselyn Dewitt MD Admitting Clinician: Moni Carpio MD Consults: 09/15/22 19:02 Consult to Nutrition [CONS] Routine Comment: Reason for consult:: Nutritional Consult Comment: 2 g sodium diet Consult to Respiratory Therapy [CONS] Routine Comment: Reason(s) for RT Consult:: Consult 09/17/22 07:28 Consult to Physical Therapy [CONS] Routine Comment: Reason(s) for PT Consult:: Evaluate and Treat Any Restrictions?:: No Restrictions Comment: back brace 09/17/22 12:56 Consult to Respiratory Therapy [CONS] Routine Comment: Reason(s) for RT Consult:: Consult Comment: nocturnal oximetry Attending Physician on discharge: Mara Osorio MD [facility] Date of Discharge: 09/18/22 DS: Diagnosis Discharge Diagnosis (1) Acute on chronic combined systolic and diastolic heart failure, NYHA class 2: Status: Acute Problem details: will discharge on demedex at recommended doses from cardiology (2) Compression fracture of thoracic vertebra, non-traumatic: Status: Acute Problem details: T8 compression fracture with 8 mm cortical retropulsion, severe spinal canal stenosis and focal cord compression. Study lumbar MRI, 08/02/2022 Advice from neurosurgery in 08/05: She will require a T- 8 corpectomy via transthoracic approach supplemented by a posterior instrumentation and fusion with associated decompression at the level of T8. The instrumentation has to be from T6 to T10. This is a lengthy operation with a lengthy recovery for anybody, but more significantly for somebody her age and with medical comorbidities. She has a degree of osteoporosis that could put her at risk of pseudoarthrosis or hardware failure. She is going to discuss with her and caregiver about proceeding. She understands the risks involved. I did explain to them that the risk of surgery is that of spinal cord injury with paralysis from the waist down, but at the same time if things are left alone she still has the risk of continuing compression of the spinal cord. There is a risk of pseudoarthrosis and adjacent level disease. I am going to order a brace for her. 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 continue OAC. (4) MALKA (obstructive sleep apnea): Status: Acute Problem details: likely undiagnosed; evidence of CO2 retention. recommending outpatient sleep study - discharging on home oxygen, no more than 3L (5) CO2 retention: Status: Acute Problem details: sleep apnea and hypoventilation as the cause for this primarily. home o2, but limited to 3L, until sleep study with o2 bleed in is prescribed and set up. (6) Rib fractures: Status: Acute Problem details: from this summer likely same time frame as thoracic fracture. likely from pneumonia-chronic coughing this summer. (7) Mild cognitive impairment: Status: Chronic Problem details: Natalie abreu DS: Summary Hospital Course Hospital Course: HOSPITALIST DISCHARGE SUMMARY ATTENDING PHYSICIAN: Mara Osorio MD FINAL DIAGNOSIS: Diastolic heart failure with preserved EF Obstructive sleep apnea, in need of sleep study Home O2 initiation Thoracic, T8, compression fracture subacute HOSPITAL FOLLOWUP ISSUES: 1. PCP to order sleep study. Nocturnal oximetry was concerning for undiagnosed sleep apnea. Likely will need CPAP with O2 bleed in. 2. Neurosurgery follow-up, reviewing notes from July, patient was to get a CT and have follow-up. Her brace looks poorly fitted and I would like to see her follow-up with Dr. Cool's team. REFERRALS WHILE ADMITTED: PT, OT REFERRALS AFTER DISCHARGE: PCP, Neurosurgery BRIEF HOSPITAL COURSE: Dai is a 72-year-old with acute on chronic diastolic heart failure with preserved EF with an ER cart classification of 2-3. She had a new hypoxia and hypercapnia that we treated with diuresis and oxygen but still required a need for oxygen at discharge, home O2 was arranged. Nocturnal oximetry also noted significant apnea and hypoxia during sleep. Outpatient sleep study was recommended. Dai has been managing a T8 compression fracture with bracing. She also receives services at [facility] where she lives with her independently. This brace looks poorly fitted and she has not followed up with Neurosurgery since July. SUBSTANTIVE NOTATIONS ON IMAGING, LAB, MICROBIOLOGY/PATHOLOGY STUDIES: Chest CT showed no PE but some bilateral atelectasis and small effusions Echocardiogram showed known diastolic dysfunction, mild pulmonary hypertension and severe TR. DISCHARGE MEDICATIONS: See Reconciled list - SIGNIFICANT CHANGES: Torsemide increased to 60 mg b.i.d. REVIEW OF SYSTEMS No new chest pain or dyspnea Pain controlled No voiding difficulties Tolerating diet challenge PHYSICAL EXAM: CONSTITUTIONAL: Daytime somnolence is still noted but improved. Oxygenation has improved but were still requiring O2. VITAL SIGNS: see record. HEENT: Normocephalic, atraumatic. PERRL, EOMI, conjunctivae pink, no scleral icterus. Ears and nose externally normal. Pharynx normal. NECK: No JVD. No carotid bruit, no thyromegaly, no adenopathy. CHEST: Clear to auscultation bilaterally. HEART: S1 and S2 normal. Edema ABDOMEN: Soft, nontender. Normal bowel sounds. MUSCULOSKELETAL: No gross joint deformity or swelling. NEURO: Cranial nerves intact. Grossly intact. No asymmetric findings. SKIN: No rashes, petechiae, concerning changes PSYCHIATRIC: Mood euthymic. DISPOSITION: Home with - with new oxygen ordered, 3 L max. Recommendation was to continue all home services previous to admission. Time spent on discharge 37 minutes. Time Spent with Patient Time attestation: Total time spent providing and/or coordinating discharge services: Exam Const: Vital Signs, click to edit/add: Vital Signs - 24 hr 09/17/22 19:45 09/17/22 19:45 09/17/22 23:00 Temperature 98.1 F Pulse Rate 79 79 Pulse Rate [Apical ] 80 Pulse Rate [Right Pulse Oximeter] Respiratory Rate 20 Blood Pressure [Ri ght Arm] 112/56 L Pulse Oximetry 92 Oxygen Delivery Me thod Nasal Cannula Oxygen Flow Rate 1 Fraction of Inspir ed Oxygen 09/17/22 23:00 09/17/22 23:00 09/18/22 03:00 Temperature 98.0 F Pulse Rate Pulse Rate [Apical ] 80 Pulse Rate [Right Pulse Oximeter] 95 Respiratory Rate 20 20 20 Blood Pressure [Ri ght Arm] 133/76 Pulse Oximetry 88 85 L Oxygen Delivery Me thod Room Air Room Air Oxygen Flow Rate Fraction of Inspir ed Oxygen 09/18/22 07:00 09/18/22 07:00 09/18/22 07:00 Temperature 98.6 F Pulse Rate 86 Pulse Rate [Apical ] Pulse Rate [Right Pulse Oximeter] 90 90 Respiratory Rate 20 20 Blood Pressure [Ri ght Arm] 154/86 H Pulse Oximetry 86 L Oxygen Delivery Me thod Nasal Cannula Oxygen Flow Rate 2 Fraction of Inspir ed Oxygen 09/18/22 08:42 09/18/22 12:13 09/18/22 11:00 Temperature 97.6 F Pulse Rate 118 H Pulse Rate [Apical ] Pulse Rate [Right Pulse Oximeter] 85 Respiratory Rate 20 Blood Pressure [Ri ght Arm] 134/48 L Pulse Oximetry 94 Oxygen Delivery Me thod Nasal Cannula Nasal Cannula Oxygen Flow Rate 2 Fraction of Inspir ed Oxygen 0.28 0.28 DS: Data Data Completed and Pending Labs on day of discharge: Labs from last 24 hours 09/18/22 09/18/22 09/18/22 12:05 06:14 06:14 INR D-Dimer Quant (PE/DVT) ABG pH 7.39 ABG pCO2 67 H* ABG pO2 74.2 L ABG HCO3 40 H ABG Total CO2 35 H ABG O2 Saturation 95 ABG Base Excess 11.8 H VBG pH 7.465 H VBG pCO2 59 H VBG pO2 41.4 VBG HCO3 42 H Sodium Potassium Chloride Carbon Dioxide BUN Creatinine Estimated Creat Clear Estimated GFR Glucose Calcium Ionized Calcium Albertina 0.99 L Troponin I < 0.01 L NT-Pro-B Natriuret Pep 2600 H 09/18/22 09/18/22 09/16/22 06:14 06:14 05:46 INR 1.20 H D-Dimer Quant (PE/DVT) 0.73 H ABG pH ABG pCO2 ABG pO2 ABG HCO3 ABG Total CO2 ABG O2 Saturation ABG Base Excess VBG pH VBG pCO2 VBG pO2 VBG HCO3 Sodium 134 L Potassium 4.3 Chloride 90 L Carbon Dioxide 37 H BUN 26 Creatinine 0.5 Estimated Creat Clear 61.28 Estimated GFR 98 Glucose 125 H Calcium 8.0 L Ionized Calcium Albertina Troponin I NT-Pro-B Natriuret Pep Discharge Plan Discharge Disposition: Home, Self-Care Date of Admission: 09/15/22 19:03 Attending Provider on Discharge: Mara Osorio Primary Care Provider: Yoselyn Dewitt Condition: Improved Anticipated Discharge Date/Time: 09/18/22 10:00 Discharge Medications: New (DME) Home Oxygen Misc See Rx Instructions .Route Qty: 1 0RF Rx Instructions: NC oxygen, 2L at Rest, 3L with activity Continued cholecalciferol (vitamin D3) 50 mcg (2,000 unit) capsule 2,000 unit PO DAILY digoxin 125 mcg (0.125 mg) tablet 125 mcg PO DAILY potassium chloride 10 mEq tablet,ER particles/crystals 10 meq PO TIDWM calcium carbonate 500 mg calcium (1,250 mg) tablet 1,000 mg PO DAILY alendronate 70 mg tablet 70 mg PO .Every 7 Days Rx Instructions: PT TAKES ON MONDAYS diltiazem HCl [Cartia XT] 180 mg capsule,extended release 24hr 360 mg PO DAILY metoprolol succinate 100 mg tablet extended release 24 hr 150 mg PO DAILY calcitonin (salmon) 200 unit/actuation spray,non-aerosol 1 spray intranasal (ALT) DAILY lisinopril 40 mg tablet 40 mg PO DAILY warfarin 5 mg tablet See Rx Instructions PO DAILY Qty: 102 0RF Protocol: Dose Management Condition: Tuesday Dose/Route: 7.5 % Instruction: 1.5 x 5 % tablets Condition: Tuesday Dose/Route: 5 % Instruction: 1 x 5 % tablet Condition: Tuesday Dose/Route: 5 % Instruction: 1 x 5 % tablet Condition: Tuesday Dose/Route: 7.5 % Instruction: 1.5 x 5 % tablets Condition: Dose/Route: 5 % Instruction: 1 x 5 % tablet Condition: Tuesday Dose/Route: 7.5 % Instruction: 1.5 x 5 % tablets Condition: Tuesday Dose/Route: 5 % Instruction: 1 x 5 % tablet Protocol Text: Adjustment Start Date: Tuesday09/08/22 INR Value: 3.0 INR Date: 09/08/22 Recheck Date: 10/08/22 Rx Instructions: 5 mg - 7.5 mg orally daily; take 7.5 mg on Tuesday/Tuesday/Tuesday and 5 mg all other days. Changed torsemide 20 mg tablet 60 mg PO BID Qty: 180 0RF Discharge Orders: Discharge Order (Routine); Ordered 09/18/22 Ordered By: Mara Osorio Patient Education: Using Oxygen at Home (DC) Additional Instructions: 1. Resume homecare for RN/PT/OT and home health aide 2. Wear oxygen around the clock (24/7) at no more than 3 liters by nasal cannula 3. It is very important to get a sleep study ordered and scheduled, this can be done by your PCP (hospitalists can not order). Your nocturnal oximetry shows you need CPAP with oxygen. Because you haven't had this your CO2 becomes elevated and that is why you are sleepy during the day and restless at night. Discharging on home oxygen will help but the extra support of CPAP will be necessary. Call Tuesday and/or message your PCP for the next available sleep study. This is important but not considered urgent/emergent. 4. 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 Please set a follow-up with Dr. Cool at [facility] to go over the T8 back fracture. Even if you didn't want surgery it's important to follow-up. Activity Level: Activity as Tolerated Follow Up Appointments: Yoselyn Dewitt MD [Primary Care Provider] - 10/01/22 2:00 pm (with Dr. Dewitt. pt needs sleep study ordered by PCP ) Daquan Cool MD [Referring] - (next available to go over how the brace fits, how the back is healing (severe T8 fracture)) Forms: [facility] Info Instructions
--- NOTE | 2022-09-18 17:54 | PC.NURSE ---
shift note: dc'd pt's IV intact Rt AC. Reviewed dc instructions with pt and her spouse. Questions addressed. Belongings reviewed and sent with pt at dc. O2 tank with supplies sent with pt at dc.
== END 2022-09-18 17:00 | disposition home health service (06) | DRG 291 ==
LOC: ED 13:28 → MEDSURG 17:12
PROVIDERS: Family Medicine; Admitting Provider Family Medicine; Emergency Provider Family Medicine; PCP Family Medicine; Visit Provider Family Medicine
DX: I11.0 Hypertensive heart disease with heart failure (principal); I50.43 Acute on chronic combined systolic (congestive) and diastolic (congestive) heart failure; J96.01 Acute respiratory failure with hypoxia; J96.22 Acute and chronic respiratory failure with hypercapnia; J96.21 Acute and chronic respiratory failure with hypoxia; E87.1 Hypo-osmolality and hyponatremia; M48.54XA Collapsed vertebra, not elsewhere classified, thoracic region, initial encounter for fracture; I48.91 Unspecified atrial fibrillation; Z79.01 Long term (current) use of anticoagulants; G31.84 Mild cognitive impairment of uncertain or unknown etiology; M54.16 Radiculopathy, lumbar region; I08.3 Combined rheumatic disorders of mitral, aortic and tricuspid valves; G47.33 Obstructive sleep apnea (adult) (pediatric); M81.0 Age-related osteoporosis without current pathological fracture; G47.36 Sleep related hypoventilation in conditions classified elsewhere; I27.20 Pulmonary hypertension, unspecified
CPT/HCPCS: 36415; 36600; 71045; 71260; 80048; 80053; 81001; 82330; 82803; 83735; 83880; 84484; 85025; 85379; 85610; 86140; 87631; 93306; 94761; 97110; 97116; 97162; 97166; 97530; 99285; A9270; J0610; J1940; Q9967

== ENCOUNTER 2022-09-19 05:13 | Outpatient (CLI) | payer MEDICARE, BC, SELFPAY ==
--- OUTSIDE RECORDS SUMMARY | 2022-10-18 06:26 | XMS_ITS | Clinical Summary ---
:1950 Author Organization [facility] Address [address] [place] [address] Care Team Providers Name Role Phone Unavailable Primary Care Provider Unavailable Source Comments Patient records contain information from all sites at [facility]. For routine questions regarding patient records, call [phone] during business hours, M-F 8:00 AM - 5:00 PM Central Time. Record requests for emergency care only can be directed to [phone] at any time.[facility] Allergies Active Allergy Reactions Severity [...] Team Description 09/20/2022 External Outreach Nephrology and [place], [place] Show Hypertension Ion Tamayo Jr., D.O. [...] e / Group Dates MEDICARE MEDICARE A [id number] 2013-Pres [address] [place] [address] BLUE CROSS BCBS [employer] [id number] 2021-Pres [phone] PO KISHAN X Cost Share BLUE SHIELD BLUE COST ent [phone] [place] [address]
--- OUTSIDE RECORDS SUMMARY | 2022-10-18 06:26 | XMS_ITS | Encounter Summary ---
:1950 Author Organization [facility] Address [address] [place] [address] Care Team Providers Name Role Phone Unavailable Primary Care Provider Unavailable Reason for Visit Appointment Request (Routine) - Closed Specialty Diagnoses / Procedures Referred By Contact Refer red To Contact Nephrology and Yoselyn Dewitt Hypertension M.D. [address] [place] [address] Referral ID Status Reason Start Date Expiration Date Visits Requ ested Visits Authorized [id number] Closed 07/14/2022 07/14/2023 1 Encounter Details Date Type Department Care Team Description 07/20/2022 External Outreach Division of Arthur Donahue (Primary Dx); Nephrology and Ion Tamayo Jr., Other Heart Failure ([facility]); Hypertension in [place] Atrial Fibrillation Longstanding Persist ent ([facility]); [place], [place] [address] [facility] Hypertension And Chronic Kidney Disease Stage 1; [address] [place], [place] Fracture T7-8 Wedge Compress ion Closed Initial ([facility]); [place] [address] Anticoagulant Therapy; [id number] Loss Hearing Sensorineural B ilateral Social History [...] documented in this encounter Progress Notes Ion Donauhe Jr., Korey. - 07/20/2022 3:00 PM CDT Referring Provider: DR Dewitt SUBJECTIVE REASON FOR VISIT [place] out reach CKD Clinic Consultation regards hyponatremia, [...] back in 2005 when I note that [place] records demonstrate serumsodium of 136 mEq per [...] in a supervised living environment her close friend/college instructor, Natalie, a retired pharmacist helps care [...] Longstanding Persistent ([facility]) Her heart rate is well controlled, she is on oral anticoagulation with an INR of 1.8. 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 Please see above discussion #5 Fracture T7-8 Wedge Compression Closed Initial ([facility]) Some of her acute pain may be [...] Persist ent ([facility]) Hypertension And Chronic Kidney Disease Stage 1 Fracture T7-8 Wedge Compression Closed I nitial ([facility]) Anticoagulant Therapy Loss Hearing Sensorineural Bilateral documented in this encounter
--- OUTSIDE RECORDS SUMMARY | 2022-10-18 06:26 | XMS_ITS | Encounter Summary ---
:1950 Author Organization [facility] Address [address] [place] [address] Care Team Providers Name Role Phone Unavailable Primary Care Provider Unavailable Reason for Visit Appointment Request (Routine) - Authorized Specialty Diagnoses / Procedures Referred By Contact Refer red To Contact Nephrology and Hypertension Referral ID Status Reason Start Date Expiration Date Visits V isits Requested Authorized [id number] Authorized 08/27/2022 08/27/2023 1 Encounter Details Date Type Department Care Team Description 09/20/2022 External Outreach Division of Nephrology Dallin Donahue No Show and Hypertension in [place], [place] [address] [facility] [address] [place] [address] [phone] (Wo rk) Social History Tobacco Use Types Packs/Day Years Used Date Smoking Tobacco: Never Assessed Sex Assigned at Date Recorded Not on file documented as of this encounter Plan of Treatment Not on filedocumented as of this encounter Visit Diagnoses Not on filedocumented in this encounter
--- OUTSIDE RECORDS SUMMARY | 2022-10-18 06:26 | XMS_ITS | Clinical Summary ---
:1950 Author Organization [facility] [place] [address] Care Team Providers Name Role Phone Yoselyn Dewitt MD [facility] [phone] Allergies Active Allergy Reactions Severity Noted [...] day prn calcitonin salmon, 200 Inhale 1 [place] 0 Active units per actuation, into affected nasal (MIACALCIN, nostril(s) once FORTICAL) 200 daily. unit/actuation nasal alternating spray nostrils daily Active Problems Problem Noted Date Sensorineural hearing loss, bilateral 06/14/2019 Persistent atrial fibrillation 02/20/2019 Hypertension 02/20/2019 Encounters Date Type Specialty Care Team Description 10/13/2022 Orders Only Scanner <No scans attac hed> 10/11/2022 Lab Requisition Nadir Cohen MD 10/01/2022 Lab Requisition Nadine Nicole NP 09/24/2022 Home Care Visit Kale Wilson RD RD - ME SSED VISIT 09/22/2022 Home Care Visit Nuris Peters RN SN - OAS IS TRANSFER 09/20/2022 Home Care Visit Alisa Maher RN SN - OASIS RESUMPTION OF CARE 09/19/2022 Home Care Visit Nuris Peters RN CARE INVESTIGATIVE SHOPPER RDINATION 09/17/2022 Home Care Visit Nuris Peters RN CARE INVESTIGATIVE SHOPPER RDINATION 09/17/2022 Home Care Visit Nuris Peters [...] Home Care Visit Nuris Peters RN CARE INVESTIGATIVE SHOPPER RDINATION 09/14/2022 Home Care Visit Ed Morales, PT PT - INITIAL ASSESSMENT 09/14/2022 Home Care Visit Lizette Celis TRIMMER SORTER - HOME VISIT 09/14/2022 Travel 09/13/2022 Home [...] Comments Blood Pressure 110/66 09/20/2022 11:18 AM ROLLER LEVELER OPERATOR Pulse 96 09/20/2022 11:18 AM ROLLER LEVELER OPERATOR Temperature 37.8 ??C (100 ??F) 09/20/2022 11:01 AM ROLLER LEVELER OPERATOR Respiratory Rate 22 09/20/2022 11:01 AM ROLLER LEVELER OPERATOR Oxygen Saturation 92% 09/20/2022 11:18 AM ROLLER LEVELER OPERATOR Inhaled Oxygen Concentration - - Weight 79.8 kg (176 lb) 09/13/2022 9:29 AM CDT Height 142.2 cm (4' 8) 08/11/2022 8:35 AM CDT Body Mass Index 39.46 08/11/2022 8:35 AM CDT Plan of Treatment Upcoming Encounters Date Type Specialty Care Team Description 10/19/2022 Phone Office Visit Daquan Cool MD [address] [place] [address] (Wo rk) Health Maintenance Due Date Last [...] Name Priority Date/Time Associated Diagnosis Comme nts SCAN-RADIOLOGY 10/13/2022 12:00 AM Result s for this REPORT ROLLER LEVELER OPERATOR procedure are i n the results section. PROTIME-INR Routine 10/12/2022 8:28 AM Chronic atrial Results for this ROLLER LEVELER OPERATOR fibrillation, procedure are in unspecified (HC) the results section. BASIC METABOLIC Routine 10/05/2022 8:25 AM Heart failure, Resu lts for this PANEL ROLLER LEVELER OPERATOR unspecified (HC) procedure a re in the results section. CBC W PLT NO DIFF Routine 10/05/2022 8:25 AM Heart failure, Re sults for this ROLLER LEVELER OPERATOR unspecified (HC) procedure a re in the results section. ECHO COMPLETE WO Routine 09/16/2022 1:36 PM Hypoxia Results for this CONTRAST CDT Fluid overload procedure are in the results section. SCAN 08/05/2022 1:28 PM Results f or this CORRESP-IMAGING CDT procedure ar e in the results section. from Last 3 Months Results SCAN-RADIOLOGY REPORT (10/13/2022 12:00 AM ROLLER LEVELER OPERATOR) Narrative This result has an attachment that is no t available. Scanner OTHER (ABNORMAL) PROTIME-INR (10/12/2022 8:28 AM ROLLER LEVELER OPERATOR) P athologist Signature INR 2.5 (H) <1.3 10/12/2022 [place] 10:15 AM [facility] PROTIME 26.2 (H) 12.0 - 13.8 10/12/2022 [place] sec 10:15 AM [facility] Specimen Anatomical Collection Method / Collection Time Recei kam Time (Source) Location / Volume Laterality Blood BLOOD SPECIMEN / Venipuncture / 10/12/2022 8:28 2021 9:59 Unknown Unknown AM ROLLER LEVELER OPERATOR AM [facility] Narrative [facility] - 10:15 AM ROLLER LEVELER OPERATOR ?Therapeutic Range 2.0-3.0 for most anticoagulated patients [...] Organization Address City/State/ZIP Code Phon e Number [facility] [address] [place] [address] (ABNORMAL) CBC W PLT NO DIFF (10/05/2022 8:25 AM [facility]) [facility] gist Method Time Signature WHITE BLOOD 7.1 4.5 - 11.0 10/05/2022 [place] COUNT thou/cu mm 9:43 AM [facility] RED BLOOD COUNT 5.02 4.00 - 10/05/2022 [place] 5.20 9:43 AM [facility] mil/cu mm LABORATORY HEMOGLOBIN 15.5 12.0 - 10/05/2022 [place] 16.0 g/dL 9:43 AM [facility] HEMATOCRIT 49.1 33.0 - 10/05/2022 [place] 51.0 % 9:43 AM [facility] MCV 98 80 - 100 10/05/2022 [place] fL 9:43 AM [facility] MCH 30.9 26.0 - 10/05/2022 [place] 34.0 pg 9:43 AM [facility] MCHC 31.6 (L) 32.0 - 10/05/2022 [place] 36.0 g/dL 9:43 AM [facility] RDW 13.2 11.5 - 10/05/2022 [place] 15.5 % 9:43 AM [facility] PLATELET COUNT 225 140 - 440 10/05/2022 [place] thou/cu mm 9:43 AM [facility] MPV 9.9 6.5 - 11.0 10/05/2022 [place] fL 9:43 AM [facility] Specimen Anatomical Collection Method / Collection Time Recei kam Time (Source) Location / Volume Laterality Blood BLOOD SPECIMEN / Venipuncture / 10/05/2022 8:25 2021 9:22 Unknown Unknown AM ROLLER LEVELER OPERATOR AM ROLLER LEVELER OPERATOR Nadine Nicole NP HEMATOLOGY Performing Organization Address City/State/ZIP Code Phon e Number [facility] [address] [place] [address] (ABNORMAL) BASIC METABOLIC PANEL (10/05/2022 8:25 AM [facility]) Analysis Performed At Patho logist Time Signature SODIUM 144 135 - 145 10/05/2022 [place] mmol/L 10:23 AM [facility] POTASSIUM 3.7 3.5 - 5.0 10/05/2022 [place] mmol/L 10:23 AM [facility] CHLORIDE 96 (L) 98 - 110 10/05/2022 [place] mmol/L 10:23 AM [facility] CO2,TOTAL 41 (HH) 21 - 31 10/05/2022 [place] mmol/L 10:23 AM [facility] ANION GAP 7 5 - 18 10/05/2022 [place] 10:23 AM [facility] GLUCOSE 115 (H) 65 - 100 10/05/2022 [place] mg/dL 10:23 AM [facility] CALCIUM 9.5 8.5 - 10.5 10/05/2022 [place] mg/dL 10:23 AM [facility] BUN 20 8 - 25 10/05/2022 [place] mg/dL 10:23 AM [facility] CREATININE 0.69 0.57 - 10/05/2022 [place] 1.11 mg/dL 10:23 AM [facility] BUN/CREAT RATIO 29 (H) 10 - 20 10/05/2022 [place] 10:23 AM [facility] eGFR >90 >90 10/05/2022 [place] mL/min/1.7 10:23 AM [facility] 3m2 LABORATORY Comment: As of 2022, [...] 10/05/2022 8:25 2021 9:22 Unknown Unknown AM ROLLER LEVELER OPERATOR AM ROLLER LEVELER OPERATOR Nadine Nicole RECREATION THERAPY DIRECTOR CHEMISTRY Performing Organization Address City/State/ZIP Code Phon e Number [facility] [address] [place] [address] ECHO COMPLETE WO CONTRAST (09/16/2022 1:36 PM [...] ECHOCARDIOGRAM LUCILA QUINTANA ? Accessi on#: ?? [id number] : ?1950 72 years Study Date: ?? 09/16/2022 12:45:11 PM Gender: F ?BP: ? 119/81 mmHg Height: 142.00 cm ?BSA: ?1.68 m? ?? Weight: 80.00 kg ? Tech: ? NWA ? Referring MD: MONI MESSINA Site: ? [facility] Reading Location: [facility] Procedure: 2D, Color Doppler and Spectra l [...] [facility] [place] red[facility] [place]. CC: [facility], Med/ Surg - IP [facility]. ??Final ?? Procedure Note Ed Torres MD - 09/16/2022 ECHOCARDIOGRAM LUCILA QUINTANA : 1950 72 years Study Date: 09/16 12:45:11 PM Gender: F BP: 119/81 mmHg Height: 142.00 cm BSA: 1.68 m? ?? Weight: 80.00 kg Tech: NICKY Referring MD: MONI MESSINA Site: [facility] Reading Location: [facility] Procedure: 2D, [...] an [facility] CC[facility] - [facility]. Final Moni Messina MD ECHO ORD SCAN CORRESP-IMAGING (08/05/2022 1:28 PM CDT) Narrative This result has an attachment that is no t available. Scanner OTHER from Last 3 Months Insurance Payer Benefit Plan / Subscriber ID Effective Dates Phone Addre ss Type Group MEDICARE PART MEDICARE PART [id number] 2013[place] A - [place] USE A HB [place] [address] [place] [address] MEDICARE PART MEDICARE PART [id number] 2013-[place] B - [place] USE B HB ONLY t [address] [place] [address] BLUE CROSS BLUE CROSS [id number] 2021-Presen [address] [address] [address] [place], [place] ONLY [id number] MEDICARE PPS HC MEDICARE [id number] 2013-Presen [address] X 2019 PPS [address] [place] [address] BLUE CROSS MR BLUE CROSS [id number] 2021-Presen [address] [address] [address] [place], [place] MR [place] ONLY [id number] (Work) [id number] Layla Quintana Personal/Family Self 1950 [address] ([address]) [address], [address] [place] [address] Advance Directives Latest Code Status on File [...] 11:48 AM 02/21/2019 5:24 PM Care Teams Hydropress Operator Relationship Specialty Start Date End Date Yoselyn Dewitt MD PCP - General Family Practice 02/21/191999 [place] [address] [facility] 09[facility] [place] [address]
== END 2022-09-19 05:14 | disposition home or self-care (01) ==
LOC: AMB 10-18 06:24
PROVIDERS: PCP Family Medicine; Visit Provider Family Medicine
DX: S29.9XXA Unspecified injury of thorax, initial encounter (principal); W01.0XXA Fall on same level from slipping, tripping and stumbling without subsequent striking against object, initial encounter; Y92.009 Unspecified place in unspecified non-institutional (private) residence as the place of occurrence of the external cause
CPT/HCPCS: A0425; A0427; A0428

== ENCOUNTER 2022-09-19 06:10 | Emergency (ER) | payer MEDICARE, BC, SELFPAY ==
[2022-09-19 06:01] VITALS: BP 141/91; PULSE 90; RESP 18; TEMP 36.5; O2SAT 87; BMI 37.4
[2022-09-19 06:10] VITALS: O2SAT 95
--- NOTE | 2022-09-19 06:12 | ED_ITS ---
HPI - General Adult General Time Seen by Provider: 06:15 Date Seen: 09/19/22 Chief complaint: Fall/Minor Trauma Stated complaint: Fall back pain Source: patient and EMS Mode of arrival: EMS Limitations: no limitations History of Present Illness HPI narrative: 72-year-old female with known T8 compression fractures well as recent discharge from hospital for heart failure exacerbation who comes in today after tripping and falling at home. Patient got up to the bathroom this morning, tripped and fell. She has no complaints. She has known T8 compression fracture with associated spinal stenosis but denies new back pain, numbness or tingling the arms or legs. She has no chest pain or breathing problems. She says she did not pass out, no preceding lightheadedness nor palpitations. Related Data Home Medications Medication Instructions Recorded Confirmed alendronate 70 mg tablet 70 mg PO .Every 7 Days 05/11/22 09/19/22 calcium carbonate 500 mg calcium 1,000 mg PO DAILY 05/11/22 09/19/22 (1,250 mg) tablet cholecalciferol (vitamin D3) 50 2,000 unit PO DAILY 08/03/22 09/19/22 mcg (2,000 unit) capsule digoxin 125 mcg (0.125 mg) tablet 125 mcg PO DAILY 08/03/22 09/19/22 potassium chloride 10 mEq 10 meq PO TIDWM 09/08/22 09/19/22 tablet,extended release(part/cryst) calcitonin (salmon) 200 1 spray intranasal (ALT) DAILY 09/16/22 09/19/22 unit/actuation nasal spray diltiazem HCl 180 mg 360 mg PO DAILY 09/16/22 09/19/22 capsule,extended release 24 hr (Cartia XT) lisinopril 40 mg tablet 40 mg PO DAILY 09/16/22 09/19/22 metoprolol succinate 100 mg 150 mg PO DAILY 09/16/22 09/19/22 tablet,extended release 24 hr Previous Rx's Medication Instructions Recorded warfarin 5 mg tablet See Rx Instructions PO DAILY #102 08/03/22 tabs Home Oxygen #1 ea 09/18/22 torsemide 20 mg tablet 60 mg PO BID #180 tabs 09/18/22 Allergies Allergy/AdvReac Type Severity Reaction Status Date / Time hydrocortisone Allergy Unknown Verified 09/08/22 14:02 hydrochlorothiazide AdvReac Intermediate hyponatremi Verified 09/08/22 14:02 a amlodipine AdvReac Mild Edema Verified 09/08/22 14:02 Review of Systems Status of ROS: Reports: 10 or more systems reviewed and unremarkable except as noted in History and below [facility] Medical History (Updated 09/19/22 @ 07:45 by Griffin Hawk MD) Acute on chronic combined systolic and diastolic heart failure, NYHA class 2 (04/2022) Acute on chronic right-sided heart failure Angioma of skin Atrial fibrillation with normal ventricular rate (03/2019) Calculus of bile duct (04/2022) Chronic heart failure with preserved ejection fraction CO2 retention Daytime somnolence History of acute congestive heart failure (2016) History of nuclear stress test Hypertension (01/04/07) Hyponatremia Long-term (current) use of anticoagulants, INR goal 2.0-3.0 Lumbar radiculopathy Mild cognitive impairment (2020) Right middle lobe pneumonia Systolic congestive heart failure Temporal headache Tubular adenoma of colon (2016) Surgical History History of bilateral cataract extraction History of cholecystectomy History of ear surgery History of hysterectomy for benign disease History of tonsillectomy Hx of appendectomy Status post endoscopic retrograde cholangiopancreatography (05/12/22) Family History Mother Brain aneurysm, Onset Age: 65 Father Coronary artery disease, Onset Age: 62 Brother Coronary artery disease, Onset Age: 64 Sister Colon cancer, Onset Age: 56 Social History Narrative: exercises regularly- 1-2/week: exercise bike, twisting , independent living 3 links, 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, no kids non-smoker rarely consumes alcohol Smoking Status: Never smoker How often do you have a drink containing alcohol: never AUDIT-C Alcohol total score: 0 Non-prescribed substance use: denies use service: No Exam Narrative: Exam Narrative: General: Well-developed and well-nourished, no acute distress Head: Atraumatic and normocephalic Eyes: Pupils are equal reactive, extraocular motions intact, conjunctiva clear ENT: External nose and ears are normal, posterior pharynx without erythema or exudate Neck: No midline cervical tenderness, full spontaneous range of motion the neck, trachea midline, no adenopathy Heart: Irregular rate but regular rhythm Lungs: Trace crackles bilateral bases Abdomen: Soft, nontender, nondistended with active bowel sounds Musculoskeletal: No tenderness, deformity, bilateral lower extremity edema Neurologic: Awake, alert, and oriented x3, no gross focal neurologic deficits, cranial nerves intact as tested Psych: Mood and affect are appropriate Skin: No rashes Const: Vital Signs, click to edit/add: Vital Signs - 24 hr 09/19/22 06:01 09/19/22 06:25 09/19/22 06:10 Temperature 97.7 F Pulse Rate [Left P ulse Oximeter] 90 Respiratory Rate 18 Blood Pressure [Le ft Upper Arm] 141/91 H Pulse Oximetry 87 L 95 95 Oxygen Delivery Me thod Room Air Nasal Cannula Nasal Cannula Oxygen Flow Rate 2 2 09/19/22 06:26 Temperature Pulse Rate [Left P ulse Oximeter] Respiratory Rate Blood Pressure [Le ft Upper Arm] Pulse Oximetry 95 Oxygen Delivery Me thod Nasal Cannula Oxygen Flow Rate 2 Course Course Hospital Course: Patient seen examined, prior records are reviewed. Patient is on Coumadin with history of heart failure, tripped and fell this morning. She denies any injury. Says she did not pass out or become weak, very clear that she tripped. No external signs of head trauma, head CT ordered as patient is on Coumadin. Remainder of physical exam is reassuring. No tenderness of the back and patient is able to sit bed without difficulty. CT scan of thoracic spine ordered to re- evaluate no compression fracture the patient has no new neurologic deficits no new back pain. No pain in the lumbar spine, no chest pain or shortness of breath outside of her usual shortness of breath. If CT scan is reassuring, jennifer ent can be discharged home. Reevaluation(s) Reevaluation #1: CT scan of the head personally reviewed and interpreted by me does not demonstrate any acute intracranial findings, radiology interpretation agrees. CT scan of thoracic spine does not show any new acute findings. Time: 07:27 Reevaluation #2: Radiology interpretation of the lumbar spine CT agrees with my initial interpretation. Discussed disposition with patient and family member. They h ave an appointment this morning for home health services evaluation and would like to get them home for that if possible. Time: 07:44 Vital Signs Vital signs: Initial Vital Signs Temperature 97.7 F 09/19/22 06:01 Temperature Source Temporal Artery Scan 09/19/22 06:01 Pulse Rate 90 09/19/22 06:01 Respiratory Rate 18 09/19/22 06:01 Blood Pressure 141/91 H 09/19/22 06:01 Blood Pressure Mean 107 09/19/22 06:01 Blood Pressure Position Semi-Fowlers 09/19/22 06:01 Pulse Oximetry 87 L 09/19/22 06:01 Oxygen Delivery Method 09/19/22 06:01 Vital Signs Temperature 97.7 F 09/19/22 06:01 Pulse Rate 90 09/19/22 06:01 Respiratory Rate 18 09/19/22 06:01 Blood Pressure 141/91 H 09/19/22 06:01 Pulse Oximetry 87 L 09/19/22 06:01 Oxygen Delivery Method 09/19/22 06:01 Temperature 97.7 F 09/19/22 06:01 Pulse Rate 90 09/19/22 06:01 Respiratory Rate 18 09/19/22 06:01 Blood Pressure 141/91 H 09/19/22 06:01 Pulse Oximetry 95 09/19/22 06:26 Oxygen Delivery Method 09/19/22 06:26 Oxygen Flow Rate 2 09/19/22 06:26 Medical Decision Making Medical Records Medical records reviewed: Yes I reviewed the patient's medical records Lab Data Lab results reviewed: Yes I reviewed the patient's lab results Discharge Plan Discharge Clinical Impression: Chronic heart failure with preserved ejection fraction, Fall Patient Disposition: Home w/ Parent or Adult Condition: Stable Instructions: Fall Prevention for Older Adults (ED) Additional Instructions: Usual walker and wear back brace when you are up and around. Follow-up with your doctor as scheduled. Activity Level: Activity as Tolerated Discharge Diet: Heart Healthy (2 gm sodium, low fat) Prescriptions: No Action cholecalciferol (vitamin D3) 50 mcg (2,000 unit) capsule 2,000 unit PO DAILY digoxin 125 mcg (0.125 mg) tablet 125 mcg PO DAILY potassium chloride 10 mEq tablet,ER particles/crystals 10 meq PO TIDWM calcium carbonate 500 mg calcium (1,250 mg) tablet 1,000 mg PO DAILY alendronate 70 mg tablet 70 mg PO .Every 7 Days Rx Instructions: PT TAKES ON MONDAYS diltiazem HCl [Cartia XT] 180 mg capsule,extended release 24hr 360 mg PO DAILY metoprolol succinate 100 mg tablet extended release 24 hr 150 mg PO DAILY calcitonin (salmon) 200 unit/actuation spray,non-aerosol 1 spray intranasal (ALT) DAILY lisinopril 40 mg tablet 40 mg PO DAILY torsemide 20 mg tablet 60 mg PO BID Qty: 180 0RF (DME) Home Oxygen Misc See Rx Instructions .Route Qty: 1 0RF Rx Instructions: NC oxygen, 2L at Rest, 3L with activity warfarin 5 mg tablet See Rx Instructions PO DAILY Qty: 102 0RF Protocol: Dose Management Condition: Tuesday Dose/Route: 7.5 % Instruction: 1.5 x 5 % tablets Condition: Tuesday Dose/Route: 5 % Instruction: 1 x 5 % tablet Condition: Tuesday Dose/Route: 5 % Instruction: 1 x 5 % tablet Condition: Tuesday Dose/Route: 7.5 % Instruction: 1.5 x 5 % tablets Condition: Dose/Route: 5 % Instruction: 1 x 5 % tablet Condition: Tuesday Dose/Route: 7.5 % Instruction: 1.5 x 5 % tablets Condition: Tuesday Dose/Route: 5 % Instruction: 1 x 5 % tablet Protocol Text: Adjustment Start Date: Tuesday09/08/22 INR Value: 3.0 INR Date: 09/08/22 Recheck Date: 10/08/22 Rx Instructions: 5 mg - 7.5 mg orally daily; take 7.5 mg on Tuesday/Tuesday/Tuesday and 5 mg all other days. Follow Up/Referrals: Yoselyn Dewitt MD [Primary Care Provider] - Stand Alone Forms: [facility] Info Instructions
--- NOTE | 2022-09-19 06:17 | CRLHL7_ITS ---
For Patients: As a result of the Cures Act, medical imaging exams and procedure reports are released immediately into your electronic medical record. You may view this report before your referring provider. If you have questions, please contact your health care provider. INDICATION: Fall. Known T8 compression fracture. TECHNIQUE: Noncontrast CT images acquired through the thoracic spine. COMPARISON: CT thoracic spine 08/18/2022. FINDINGS: Severe chronic T8 compression fracture associated with 7 mm retropulsion contributing to at least moderately severe spinal canal stenosis, not significantly changed. A hypoattenuating fracture cleft traverses the T8 vertebral body. Moderate chronic T7 anterior wedge compression fracture, also not significantly changed. No acute fracture. Moderately exaggerated thoracic kyphosis. [id number] biconvex thoracic curvature. There is severe bilateral neural foraminal stenosis at T8-9. Bridging ossification of the T2 through T5 vertebral bodies. Late subacute to chronic appearing fractures of the right 5th, 6th, 7th, and 8th ribs associated with callus formation. No concerning opacities in the lungs. IMPRESSION: 1. No acute fracture. 2. Severe chronic T8 compression fracture demonstrating retropulsion contributing to at least moderately severe spinal canal stenosis, not significantly changed. There is severe bilateral neural foraminal stenosis at T8-9. 3. Moderate chronic T7 anterior wedge compression fracture, not significantly changed. 4. Moderately exaggerated thoracic kyphosis and [id number] biconvex thoracic curvature. 5. Multiple late subacute to chronic appearing right rib fractures. Please note that all CT scans at this facility use dose modulation, iterative reconstruction, and/or weight-based dosing when appropriate to reduce radiation dose to as low as reasonably achievable. Dictated by Benito Ramires MD @ 09/19/2022 7:54:36 AM (Electronically Signed)
--- NOTE | 2022-09-19 06:18 | CRLHL7_ITS ---
For Patients: As a result of the Century Cures Act, medical imaging exams and procedure reports are released immediately into your electronic medical record. You may view this report before your referring provider. If you have questions, please contact your health care provider. INDICATION: Fall. Patient on Coumadin. TECHNIQUE: CT scan of the brain was performed without contrast. COMPARISON: CT scan of the brain 04/29/2020 FINDINGS: Scan quality images degraded by motion Brain: No abnormal attenuation. No mass lesion or midline shift. No signs of intra-axial hemorrhage. Ventricles are stable in size and configuration. Extra-axial spaces: Prominent no change. No signs for extra-axial hemorrhage Calvarium: No change. IMPRESSION: 1. Motion artifact. 2. Cerebral volume loss. 3. No radiographic signs of intracranial and no change prior. Please note that all CT scans at this facility use dose modulation, iterative reconstruction, and/or weight-based dosing when appropriate to reduce radiation dose to as low as reasonably achievable. Dictated by Prateek Jones MD @ 09/19/2022 7:26:27 AM (Electronically Signed)
[2022-09-19 06:25] VITALS: O2SAT 95
[2022-09-19 06:26] VITALS: O2SAT 95
--- OUTSIDE RECORDS SUMMARY | 2022-09-19 07:00 | XMS_ITS | Encounter Summary ---
:1950 Author Organization [facility] Address [address] [place] [id number] Care Team Providers Name Role Phone Unavailable Primary Care Provider Unavailable Reason for Visit Appointment Request (Routine) - Closed Specialty Diagnoses / Procedures Referred By Contact Refer red To Contact Nephrology and Yoselyn Dewitt Hypertension M.D. [address] [place] [address] Referral ID Status Reason Start Date Expiration Date Visits Requ ested Visits Authorized [id number] Closed 07/14/2022 07/14/2023 1 Encounter Details Date Type Department Care Team Description 07/20/2022 External Outreach Division of Arthur Donahue (Primary Dx); Nephrology and Ion Tamayo Jr., Other Heart Failure ([facility]); Hypertension in [place]. Atrial Fibrillation Longstanding Persist ent ([facility]); [place], [place] [address] [facility] Hypertension And Chronic Kidney Disease Stage 1; [address] [place], [place] Fracture T7-8 Wedge Compress ion Closed Initial ([facility]); [place] [address] Anticoagulant Therapy; [id number] Loss Hearing Sensorineural B ilateral Social History [...] this encounter Progress Notes Ion Donahue Jr., Korey. - 07/20/2022 3:00 PM CDT Referring Provider: DR Dewitt SUBJECTIVE REASON FOR VISIT [facility] out reach [facility] Consultation regards hyponatremia, [...] back in 2005 when I note that [facility] records demonstrate serumsodium of 136 mEq per [...] in a supervised living environment her close friend/educational manager, Natalie, a retired pharmacist helps care for her. She orchestrate the patient's medications. 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 There is some documentation [...] cardiorenal perspective. #3 Atrial Fibrillation Longstanding Persistent ([facility]) Her heart rate is well controlled, she is on oral anticoagulation with an INR of 1.8. 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 Please see above discussion #5 Fracture T7-8 Wedge Compression Closed Initial ([facility]) Some of her acute pain may be leading to some of the ADH release, this seems to be improving she is seeing a spine experts this week. #6 Anticoagulant Therapy Her INR is 1.8. #7 Loss Hearing Sensorineural Bilateral Hearing aids in place Total time: 90 minutes Counseling Time: 50 minutes Lourdes Troncoso Jr.O. documented in this encounter Plan of Treatment Not on filedocumented as of this encounter Visit Diagnoses Diagnosis Hyponatremia - Primary Other Heart Failure (HCC) Atrial Fibrillation Longstanding Persist ent ([facility]) Hypertension And Chronic Kidney Disease Stage 1 Fracture T7-8 Wedge Compression Closed I nitial ([facility]) Anticoagulant Therapy Loss Hearing Sensorineural Bilateral documented in this encounter
--- OUTSIDE RECORDS SUMMARY | 2022-09-19 07:00 | XMS_ITS | Clinical Summary ---
:1950 Author Organization [facility] [place] [address] Care Team Providers Name Role Phone Yoselyn Dewitt MD Primary Care Provider [phone] [facility] [phone] Allergies Active Allergy Reactions Severity Noted [...] a day prn calcitonin salmon, Inhale 1 [place] 0 Active 200 units per into affected [...] Encounters Date Type Specialty Care Team Description 09/17/2022 Home Care Visit Nuris Peters RN CARE SURGICAL BRACE MAKER RDINATION 09/17/2022 Home Care Visit Nuris Peters RN SN - OAS IS TRANSFER 09/16/2022 Orders Only <No scans attac hed> 09/16/2022 Home Care Visit Alisa Maher RN CAR E COORDINATION 09/16/2022 Home Care Visit Alisa Maher RN SN - MISSED VISIT 09/15/2022 Home Care Visit Silvia Fisher OT OT - INITIAL ASSESSMENT 09/15/2022 Home Care Visit Silvia Fisher, GURMEET CARE COORDINATION 09/15/2022 Home Care Visit Nuris Peters RN CARE SURGICAL BRACE MAKER RDINATION 09/14/2022 Home Care Visit Ed Morales, PT PT - INITIAL ASSESSMENT 09/14/2022 Home Care Visit Lizette Ceils SOFTWARE LICENSING SPECIALIST - HOME VISIT 09/14/2022 Travel 09/13/2022 Home [...] Sign Reading Time Taken Comments Blood Pressure 160/90 09/15/2022 9:07 AM CDT Pulse 74 09/15/2022 9:07 AM CDT Temperature 37.7 ??C (99.8 ??F) 09/15/2022 9:07 AM CDT Respiratory Rate 18 09/14/2022 3:44 PM CDT Oxygen Saturation 83% 09/15/2022 9:07 AM CDT Inhaled Oxygen Concentration - - Weight 79.8 kg (176 lb) 09/13/2022 9:29 AM CDT Height 142.2 cm (4' 8) 08/11/2022 8:35 AM CDT Body Mass Index 39.46 08/11/2022 8:35 AM CDT Plan of Treatment Upcoming Encounters Date Type Specialty Care Team Description 09/19/2022 Appointment Nuris Peters, RN [address], [place] [address] (Wo rk) 09/20/2022 Home Care Visit 09/21/2022 Home Care Visit Lizette Celis [address] [address] (Wo rk) 09/28/2022 Home Care Visit Lizette Celis [address] [address] (Wo rk) 10/05/2022 Home Care Visit Lizette Celis [address] [address] (Wo rk) Health Maintenance [...] Name Priority Date/Time Associated Diagnosis Comme nts ECHO COMPLETE WO Routine 09/16/2022 1:36 PM Hypoxia Results for this CONTRAST CDT Fluid overload procedure are in the results section. SCAN 08/05/2022 1:28 PM Results f or this CORRESP-IMAGING CDT procedure ar e in the results section. from Last 3 Months Results ECHO COMPLETE WO CONTRAST (09/16/2022 1:36 PM CDT) P athologist Signature AORTIC VALVE 4 mmHg MEAN PG EJECTION 68 % FRACTION PEAK TR 3.1 m/s VELOCITY LVEDD 3.9 cm EJECTION 65 - 70% FRACTION Anatomical Region Laterality Modality HEART Ultrasound Specimen (Source) Anatomical Collection Method Collection Time Re ceived Time Location / / Volume Laterality 09/16/2022 12:45 PM CDT Narrative 09/16/2022 2:01 PM CDT ECHOCARDIOGRAM LUCILA QUINTANA ? Accessi on#: ?? [id number] : ?1950 72 years Study Date: ?? 09/16/2022 12:45:11 PM Gender: F ?BP: ? 119/81 mmHg Height: 142.00 cm ?BSA: ?1.68 m? ?? Weight: 80.00 kg ? Tech: ? NWA ? Referring MD: MONI MESSINA [facility] Reading Location: [facility] Procedure: 2D, Color Doppler and Spectra l Doppler. Indication for study: Hypoxia, Fluid ove rload Cardiac Rhythm: Atrial fibrillation.Stud y quality: Fair. Final Impressions: 1. Normal LV size, mildly increased wal l thickness, normal global systolic function with an estimated EF of 65 - 70%. 2. Right ventricular cavity size is nor mal, global systolic RV function is normal. 3. Moderate-severe tricuspid regurgitat ion. 4. Severely enlarged left atrium. 5. The inferior vena cava is dilated, r espiratory size variation greater than 50%. 6. Mildly increased estimated pulmonary pressures by tricuspid regurgitation velocity and right atrial pressure (40 mmHg plus RAP). Chamber Sizes and Function Normal left ventricular size, mildly inc reased wall thickness, normal global systolic function with an estimated EF of 65 - 70%. Left atrial size is severely enlarged. Right ventricular cavity size is n ormal, global systolic RV function is no rmal. The right atrium is moderately enlarged. Right atrial volume index is 32 ml/m? ??. Right atrial area is 20 cm? ??. The pulmonary artery is not well visualiz ed. The sinus of Valsalva is normal size d. The ascending aorta is normal sized. Valves, RV Pressures and Diastolic Funct ion The aortic valve is trileaflet, no steno sis and trivial regurgitation. The mitral valve is sclerotic, trace mitral regurgitation. Indeterminate pattern of LV diastolic filling. The tricuspid valve is no rmal in structure. Tricuspid regurgitati on is moderate-severe. The tricuspid regurgitant velocity is 3.1 m/s, the estimated right ventricular systolic pressure is 40 mmHg plus right atrial pressure. The re is mildly increased estimated pulmona ry pressure by tricuspid regurgitation velocity and right atrial pressure. The pulmonic valve is not well visualized. Trace pulmonary regurgitation. Masses, Effusion, Shunts There is no pericardial effusion. The in ferior vena cava is dilated, respiratory size variation greater than 50%. No left to right shunting was detected by limited color flow Doppler interrogation of the interatrial septum. MEASUREMENTS AND CALCULATIONS 2-D Measurements and LV Function: LVID (d) 3.9 cm LV FS% (2D) ?? 38 % LVID (s) 2.4 cm LVOT diameter 2.2 cm IVS (d) ??1.4 cm HR ?98 bpm LVPW (d) 1.3 cm LA Vol index ??54 ml/m2 Ao Sinus 3.4 cm RA Vol index ??32 ml/m2 Asc Ao ?? 3.4 cm RA area ? 20 cm? ?? LA ? 4.6 cm RV Max 4C (d) 3.2 cm Diastology: Mitral ? Tissue Doppler E Peak 1.1 m/s e', Septum ? 0.08 m/s IVRT ?? 63 msec e', Lateral ?0.09 m/ s ? E/e' Average ?? 12 .26 Aortic Valve: Vmax ? 1.4 m/s ??HOLLEY (V) ?? 2.28 cm? ?? VTI ?0.26 m ?? HOLLEY (I) ?? 2.21 cm? ?? LVOT V max 0.9 m/s ??Max PG ?8 mmHg LVOT VTI ?? 0.16 m ?? Mean PG ?? 4 mmHg SV ? 57 ml ?Dim Index 0.61 SV index ?? 34 ml/m? ?? CO ?5.6 l/min ?CI ?3.3 l/min/m? ?? Tricuspid Valve and estimated PA pressur es: TR Vmax 3.1 m/s TAPSE 2.1 cm TR maxG 40 mmHg Pulmonic Valve: PV Vmax 0.7 m/s . This study was interpreted by an [facility] redited facility. CC: [facility], Med/ Surg - IP [facility]. ??Final ?? Procedure Note Ed Torres MD - 09/16/2022 ECHOCARDIOGRAM LUCILA QUINTANA : 1950 72 years Study Date: 09/16 12:45:11 PM Gender: F BP: 119/81 mmHg Height: 142.00 cm BSA: 1.68 m? ?? Weight: 80.00 kg Tech: ENMANUELA Referring MD: MONI MESSINA Site: [facility] Reading Location: [place] Procedure: 2D, Color Doppler and Spectra l Doppler. Indication for study: Hypoxia, Fluid ove rload Cardiac Rhythm: Atrial fibrillation.Stud y quality: Fair. Final Impressions: 1. Normal LV size, mildly increased wal l thickness, normal global systolic function with an estimated EF of 65 - 70%. 2. Right ventricular cavity size is nor mal, global systolic RV function is normal. 3. Moderate-severe tricuspid regurgitat ion. 4. Severely enlarged left atrium. 5. The inferior vena cava is dilated, r espiratory size variation greater than 50%. 6. Mildly increased estimated pulmonary pressures by tricuspid regurgitation velocity and right atrial pressure (40 mmHg plus RAP). Chamber Sizes and Function Normal left ventricular size, mildly inc reased wall thickness, normal global systolic function with an estimated EF of 65 - 70%. Left atrial size is severely enlarged. Right ventricular cavity size is normal, global systolic RV function is normal. The righ t atrium is moderately enlarged. Right atrial volume index is 32 ml/m? ??. Right atrial area is 20 cm? ??. The pulmonary artery is not well visualized. The sinus of Valsalva is normal sized. The ascending aorta is normal siz ed. Valves, RV Pressures and Diastolic Funct ion The aortic valve is trileaflet, no steno sis and trivial regurgitation. The mitral valve is sclerotic, trace mitral regurgitation. Indeterminate pattern of LV diastolic filling. The tricuspid valve is normal in structure. Tricuspid regurgitation is mo derate-severe. The tricuspid regurgitant velocity is 3.1 m/s, the estimated right ventricular systolic pressure is 40 mmHg plus right atrial pressure. There is mildly increased estimated pulmonary pressure by tricuspi d regurgitation velocity and right atrial pressure. The pulmonic valve is not well visualized. Trace pulmonary regurgitation. Masses, Effusion, Shunts There is no pericardial effusion. The in ferior vena cava is dilated, respiratory size variation greater than 50%. No left to right shunting was detected by limited color flow Doppler interrogation of the interatrial septum. MEASUREMENTS AND CALCULATIONS 2-D Measurements and LV Function: LVID (d) 3.9 cm LV FS% (2D) 38 % LVID (s) 2.4 cm LVOT diameter 2.2 cm IVS (d) 1.4 cm HR 98 bpm LVPW (d) 1.3 cm LA Vol index 54 ml/m2 Ao Sinus 3.4 cm RA Vol index 32 ml/m2 Asc Ao 3.4 cm RA area 20 cm? ?? LA 4.6 cm RV Max 4C (d) 3.2 cm Diastology: Mitral Tissue Doppler E Peak 1.1 m/s e', Septum 0.08 m/s IVRT 63 msec e', Lateral 0.09 m/s E/e' Average 12.26 Aortic Valve: Vmax 1.4 m/s HOLLEY (V) 2.28 cm? ?? VTI 0.26 m HOLLEY (I) 2.21 cm? ?? LVOT V max 0.9 m/s Max PG 8 mmHg LVOT VTI 0.16 m Mean PG 4 mmHg SV 57 ml Dim Index 0.61 SV index 34 ml/m? ?? CO 5.6 l/min CI 3.3 l/min/m? ?? Tricuspid Valve and estimated PA pressur es: TR Vmax 3.1 m/s TAPSE 2.1 cm TR maxG 40 mmHg Pulmonic Valve: PV Vmax 0.7 m/s . This study was [facility]. CC: [facility], [facility]/ Surg - IP [facility]. Final Moni Messina MD ECHO ORD SCAN CORRESP-IMAGING (08/05/2022 1:28 PM CDT) Narrative This result has an attachment that is no t available. Scanner OTHER from Last 3 Months Insurance Payer Benefit Plan / Subscriber ID Effective Dates Phone Addre ss Type Group MEDICARE PART MEDICARE PART [id number] [place] A - [place] USE A HB ONLY t [address] [place] [address] MEDICARE PART MEDICARE PART [id number] 2013[place]: [place] B - [place] USE B HB ONLY t [address] ONLY [facility] [place] [address] BLUE CROSS BLUE [employer]OSS [id number] 2021-[place]en [address] [address] [address] t [place], [place] HB ONLY [id number] MEDICARE PPS HC MEDICARE [id number] 2013-Presen PO KISHAN X 2019 PPS t [address] [place] [address] (Work) [id number] Layla Quintana Personal/Family Self 1950 [address]) [address], [address] [place] [address] Advance Directives Latest Code Status on File [...] 11:48 AM 02/21/2019 5:24 PM Care Teams Hog Sticker Relationship Specialty Start Date End Date Yoselyn Dewitt MD PCP - General Family Practice 02/21/191999 [place] [address] Ismael [facility] [place] 09/09/[address] [address]
--- OUTSIDE RECORDS SUMMARY | 2022-09-19 07:00 | XMS_ITS | Clinical Summary ---
:1950 Author Organization [facility] Address [address] [place] [address] Care Team Providers Name Role Phone Unavailable Primary Care Provider Unavailable Source Comments Patient records contain information from all sites at [facility]. For routine questions regarding patient records, call [phone] during business hours, M-F 8:00 AM - 5:00 PM Central Time. Record requests for emergency care only can be directed to [phone] at any time.[facility] Allergies Active Allergy Reactions Severity Noted Date [...] Team Description 07/20/2022 External Outreach Nephrology and [place], Hyponatr emia (Primary Dx); Hypertension Ion Tamayo [...] e / Group Dates MEDICARE MEDICARE A [id number] 2013-Pres [address] [place] [address] BLUE CROSS BCBS [address] [id number] 2021-Pres [phone] PO KISHAN X Cost Share BLUE SHIELD BLUE COST ent [phone] [place] [address]
--- NOTE | 2022-09-19 08:20 | ED.NURSE ---
Home care catalytic case operator Nuris called and is concerned about her going back to where she was living as cannot care for her and needs to have oxygen on with ambulation and patient cannot do that by herself. Thinks patient needs more care than C can offer. Notified .
--- NOTE | 2022-09-19 08:28 | ED.NURSE ---
Patient agreeable to going to a rehab center for therapy. Called [facility] to see if they can take admission over the weekend. Spoke with staff, Christi, who will contact ARTEMIO owens to see if they can take patient over the weekend. Will wait for a call back.
[2022-09-19 09:15] LABS: SARS PCR* Negative SARS-CoV-2 (Negative)
--- NOTE | 2022-09-19 09:36 | ED.NURSE ---
Hospitalist declined admission for patient as there is no medical need. Patients caregiver, Natalie, was very disappointed in this news. Patient advocate information was provided. Natalie stated that she will spend the night with patient and the patients to keep her safe. Admissions DONChristi, at [facility] will assess patient first thing in the morning. They do have 1 available shared bed for a female and anticipate taking Lucila if she is appropriate for admission. Shared this information with Nuris Peters ([facility] day care teacher), Nadine (sister in-law), and Natalie. ER MD updated as well. Patient ambulated to bathroom with assist of 1 and walker and gaitbelt without issue. Breakfast provided to patient. All questions answered. Will fax information to [facility] needed for assessment in AM.
[2022-09-19 09:59] VITALS: BP 141/104; PULSE 105; RESP 20; TEMP 36.5; O2SAT 92
--- NOTE | 2022-09-19 10:35 | ED.NURSE ---
Pt d/c to home with her spouse and friend/caregivers.
== END 2022-09-19 10:37 | disposition home or self-care (01) ==
PROVIDERS: Emergency Provider Family Medicine; PCP Family Medicine
DX: R29.6 Repeated falls (principal); Z91.81 History of falling; I50.32 Chronic diastolic (congestive) heart failure
CPT/HCPCS: 70450; 72128; 87635; 99284

== ENCOUNTER 2022-10-04 13:58 | Outpatient (CLI) | payer MEDICARE, BC, SELFPAY ==
--- NOTE | 2022-10-04 14:00 | CRLHL7_ITS ---
For Patients: As a result of the Century Cures Act, medical imaging exams and procedure reports are released immediately into your electronic medical record. You may view this report before your referring provider. If you have questions, please contact your health care provider. Indication: FOLLOW UP T 8 COMPRESSION FRACTURE Technique: Routine noncontrast CT thoracic spine Please note that all CT scans at this facility use dose modulation, iterative reconstruction, and/or weight-based dosing when appropriate to reduce radiation dose to as low as reasonably achievable. Comparison: 09/19/2022 Findings: Severe compression fracture deformity involving the T8 vertebral body is similar to the prior examination. Increased nitrogen gas noted within the vertebral body anteriorly related to physiologic mechanics. Compression involving the anterior inferior endplate of T7 with reactive sclerosis is also similar. Kyphotic deformity unchanged. Fracture of T8 involves the anterior and posterior vertebral body cortex. There is posterior bony extrusion into the central canal measuring 6 millimeters. Narrowing of the foramina at T8-9 noted bilaterally. The T7-8 foramina are patent. Osteopenia. Degenerative disc disease. Vacuum disc phenomenon noted at T10-11 and T11-12. Degenerative disc disease lower cervical spine. Prevertebral soft tissue swelling about the T8 fracture remains similar. Cardiomegaly. Vascular calcifications. Linear subsegmental scarring bilaterally. No apical pneumothorax. No pleural effusion. Chronic right-sided rib fracture deformities. Impression: Similar severe compression fracture deformity of T8 with posterior extrusion of the posterior cortex into the central canal resulting in moderate bony canal stenosis at T8. There is also severe bilateral foraminal stenosis at T8-9, similar. Mild interval physiologic change to the T8 vertebral body compared to the prior study. Similar mild compression of the anterior inferior endplate of T7. Please note that all CT scans at this facility use dose modulation, iterative reconstruction, and/or weight-based dosing when appropriate to reduce radiation dose to as low as reasonably achievable. Dictated by Ed Luong MD @ 10/05/2022 10:15:22 AM (Electronically Signed)
--- OUTSIDE RECORDS SUMMARY | 2022-10-04 14:28 | XMS_ITS | Encounter Summary ---
:1950 Author Organization [facility] Address [address] [place] [address] Care Team Providers Name Role Phone Unavailable Primary Care Provider Unavailable Reason for Visit Appointment Request (Routine) - Authorized Specialty Diagnoses / Procedures Referred By Contact Refer red To Contact Nephrology and Hypertension Referral ID Status Reason Start Date Expiration Date Visits V isits Requested Authorized [id number] Authorized 08/27/2022 08/27/2023 1 Encounter Details Date Type Department Care Team Description 09/20/2022 External Outreach Division of Nephrology Dallin Donahue No Show and Hypertension in [place] Deleon [place], [place] [address] [facility] [address] [place] [phone] (Wo rk) Social History Tobacco Use Types Packs/Day Years Used Date Smoking Tobacco: Never Assessed Sex Assigned at Date Recorded Not on file documented as of this encounter Plan of Treatment Not on filedocumented as of this encounter Visit Diagnoses Not on filedocumented in this encounter
--- OUTSIDE RECORDS SUMMARY | 2022-10-04 14:28 | XMS_ITS | Clinical Summary ---
:1950 Author Organization [facility] Address [address] [place] [address] Care Team Providers Name Role Phone Unavailable Primary Care Provider Unavailable Source Comments Patient records contain information from all sites at [facility]. For routine questions regarding patient records, call [phone] during business hours, M-F 8:00 AM - 5:00 PM Central Time. Record requests for emergency care only can be directed to [phone] at any time.[facility] Allergies Active Allergy Reactions Severity [...] Encounters Date Type Specialty Care Team Description 09/20/2022 External Outreach Nephrology and [place], No Show Hypertension Ion Tamayo Jr., D.O. 07/20/2022 External Outreach Nephrology and [place], Hyponatr emia (Primary Dx); Hypertension Ion Tamayo [...] 08/13/2015, 07/2014 Influenza Vaccine Completed 08/25/2022, 08/18/2021, 08/18/2021, Additional history exists Insurance Payer Benefit Plan Subscriber ID Effective Phone Address Typ e / Group Dates MEDICARE MEDICARE A [id number] 2013-Pres [address] [place] [address] BLUE CROSS BCBS [place] [id number] 2021-Pres [phone] PO KISHAN X Cost Share BLUE SHIELD BLUE COST ent [phone] [place] [address]
--- OUTSIDE RECORDS SUMMARY | 2022-10-04 14:28 | XMS_ITS | Encounter Summary ---
:1950 Author Organization [facility] Address [address] [place] [address] Care Team Providers Name Role Phone Unavailable Primary Care Provider Unavailable Reason for Visit Appointment Request (Routine) - Closed Specialty Diagnoses / Procedures Referred By Contact Refer red To Contact Nephrology and Yoselyn Dewitt Hypertension M.D. [address] [place] [address] Referral ID Status Reason Start Date Expiration Date Visits Requ ested Visits Authorized [id number] Closed 07/14/2022 07/14/2023 1 Encounter Details Date Type Department Care Team Description 07/20/2022 External Outreach Division of Arthur Donahue (Primary Dx); Nephrology and Ion Tamayo Jr., Other Heart Failure ([facility]); Hypertension in [place] Atrial Fibrillation Longstanding Persist ent ([facility]); [place], [place] [address] [facility] Hypertension And Chronic Kidney Disease Stage 1; [address] [place], [place] Fracture T7-8 Wedge Compress ion Closed Initial ([facility]); [place] [address] Anticoagulant Therapy; [id number] Loss Hearing Sensorineural B ilateral Social History [...] Provider: DR Dewitt SUBJECTIVE REASON FOR VISIT [place] out reach [facility] Consultation regards hyponatremia, [...] back in 2005 when I note that [facility] records demonstrate serumsodium of 136 mEq per [...] in a supervised living environment her close friend/farm equipment engine mechanic, Natalie, a retired pharmacist helps care for her. She orchestrate the patient's medications. 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 There is some documentation [...] cardiorenal perspective. #3 Atrial Fibrillation Longstanding Persistent ([facility]) Her heart rate is well controlled, she is on oral anticoagulation with an INR of 1.8. 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 Please see above discussion #5 Fracture T7-8 Wedge Compression Closed Initial ([facility]) Some of her acute pain may [...] Failure (HCC) Atrial Fibrillation Longstanding Persist ent ([facility]) Hypertension And Chronic Kidney Disease Stage 1 Fracture T7-8 Wedge Compression Closed I nitial ([facility]) Anticoagulant Therapy Loss Hearing Sensorineural Bilateral documented in this encounter
== END 2022-10-04 13:59 | disposition home or self-care (01) ==
LOC: CT 13:59
PROVIDERS: PCP Family Medicine; Visit Provider Nurse Practitioner Adult Health
DX: S22.060A Wedge compression fracture of T7-T8 vertebra, initial encounter for closed fracture (principal)
CPT/HCPCS: 72128

== ENCOUNTER 2022-10-09 12:47 | Outpatient (CLI) | payer MEDICARE, BC, SELFPAY ==
--- OUTSIDE RECORDS SUMMARY | 2022-10-21 17:26 | XMS_ITS | Clinical Summary ---
:1950 Author Organization [facility] Address [address] [place] [address] Care Team Providers Name Role Phone Unavailable Primary Care Provider Unavailable Source Comments Patient records contain information from all sites at [facility]. For routine questions regarding patient records, call [phone] during business hours, M-F 8:00 AM - 5:00 PM Central Time. Record requests for emergency care only can be directed to [phone] at any time.[facility] Allergies Active Allergy Reactions Severity Noted [...] Team Description 09/20/2022 External Outreach Nephrology and Ion Donahue No Show Hypertension , D.O. from Last 3 Months Social History Tobacco [...] e / Group Dates MEDICARE MEDICARE A [id number] 2013-Pres [address] [place] [address] BLUE CROSS BCBS [place] [id number] 2021-Pres [phone] PO KISHAN X Cost Share BLUE SHIELD BLUE COST ent [phone] [place] [address]
--- OUTSIDE RECORDS SUMMARY | 2022-10-21 17:26 | XMS_ITS | Encounter Summary ---
:1950 Author Organization [facility] Address [address] [place] [address] Care Team Providers Name Role Phone Unavailable Primary Care Provider Unavailable Reason for Visit Appointment Request (Routine) - Closed Specialty Diagnoses / Procedures Referred By Contact Refer red To Contact Nephrology and Yoselyn Dewitt Hypertension M.D. [address] [place] [address] Referral ID Status Reason Start Date Expiration Date Visits Requ ested Visits Authorized [id number] Closed 07/14/2022 07/14/2023 1 Encounter Details Date Type Department Care Team Description 07/20/2022 External Outreach Division of Arthur Donahue (Primary Dx); Nephrology and Ion Tamayo Jr., Other Heart Failure ([facility]); Hypertension in [place]. Atrial Fibrillation Longstanding Persist ent ([facility]); [place], [place] [address] [facility] Hypertension And Chronic Kidney Disease Stage 1; [address] [place], [place] Fracture T7-8 Wedge Compress ion Closed Initial ([facility]); [place] [address] Anticoagulant Therapy; [id number] Loss Hearing Sensorineural B ilateral Social History [...] Provider: DR Dewitt SUBJECTIVE REASON FOR VISIT [place] out reach [facility] Consultation regards hyponatremia, [...] in 2005 when I note that [place] records demonstrate serumsodium of 136 mEq per [...] in a supervised living environment her close friend/shaping machine operator, Natalie, a retired pharmacist helps care for her. She orchestrate the patient's medications. 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 There is some [...] cardiorenal perspective. #3 Atrial Fibrillation Longstanding Persistent ([facility]) Her heart rate is well controlled, she is on oral anticoagulation with an INR of 1.8. 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 Please see above discussion #5 Fracture T7-8 Wedge Compression Closed Initial ([facility]) Some of her acute pain may be [...] Failure (HCC) Atrial Fibrillation Longstanding Persist ent ([facility]) Hypertension And Chronic Kidney Disease Stage 1 Fracture T7-8 Wedge Compression Closed I nitial ([facility]) Anticoagulant Therapy Loss Hearing Sensorineural Bilateral documented in this encounter
--- OUTSIDE RECORDS SUMMARY | 2022-10-21 17:26 | XMS_ITS | Encounter Summary ---
:[address] [facility] Address [address] [place] [address] Care Team Providers Name Role Phone Unavailable Primary Care Provider Unavailable Reason for Visit Appointment Request (Routine) - Authorized Specialty Diagnoses / Procedures Referred By Contact Refer red To Contact Nephrology and Hypertension Referral ID Status Reason Start Date Expiration Date Visits V isits Requested Authorized [id number] Authorized 08/27/2022 08/27/2023 1 Encounter Details Date Type Department Care Team Description 09/20/2022 External Outreach Division of Nephrology Dallin Donahue No Show and Hypertension in [place], [place] [address] [facility] [address] [place] [phone] [phone] (Wo rk) Social History Tobacco Use Types Packs/Day Years Used Date Smoking Tobacco: Never Assessed Sex Assigned at Date Recorded Not on file documented as of this encounter Plan of Treatment Not on filedocumented as of this encounter Visit Diagnoses Not on filedocumented in this encounter
--- OUTSIDE RECORDS SUMMARY | 2022-10-21 17:27 | XMS_ITS | Clinical Summary ---
:1950 Author Organization [employer] [facility] [place] [address] Care Team Providers Name Role Phone Yoselyn Dewitt MD Primary Care Provider [phone] [facility] [phone] Allergies Active Allergy Reactions Severity Noted [...] health Hypertension, clinician.] unspecified type diltiazem CD [The details of 30 capsule 2 04/11/2019 Active (CARDIZEM CD) 240 mg the medication extended release 24 are not available hr because there are capsuleIndications: pending changes Persistent atrial by a home health fibrillation (HC), clinician.] Hypertension, unspecified type torsemide (DEMADEX) [The details of 0 10/20/2022 Active 20 mg the medication tabletIndications: are not available Persistent atrial because there are fibrillation (HC) pending changes by a home health clinician.] polyethylene glycoL Mix 1 scoop in 0 Active (Miralax) 17 liquid then take gram/dose powder by mouth once daily if needed for Constipation. potassium chloride [The details of 0 06/22/2022 Active (KLOR-CON 10; K-TAB) the medication 10 mEq are not available Controlled-Release because there are tablet pending changes by a home health clinician.] dilTIAZem (DILACOR Take 360 mg by 0 09/10/2022 Active XR; DILTIA XT) 180 mg mouth once daily. Extended-Release capsule lisinopriL (PRINIVIL; Take 40 mg by 0 Active ZESTRIL) 40 mg tablet mouth once daily. warfarin (COUMADIN) 5 [The details of 0 10/18/2022 1 12/22/2021 Active mg tablet the medication are not available because there are pending changes by a home health clinician.] alendronate (FOSAMAX) Take 70 mg by 0 Active 70 mg tablet mouth every Tuesday morning. cholecalciferol Take 2,000 units 0 Active (Vitamin D-3) 2,000 by mouth once unit capsule daily. acetaminophen [The details of 0 Active (TYLENOL EXTRA the medication STRGTH) 500 mg tablet are not available because there are pending changes by a home health clinician.] calcitonin salmon, Inhale 1 [place] 0 Active 200 units per into affected actuation, nasal nostril(s) once (MIACALCIN, FORTICAL) daily. 200 unit/actuation alternating nasal spray nostrils daily calcium carbonate Chew 1,000 mg by 0 09/22/2022 Active (TUMS) 200 mg calcium mouth once daily. (500 mg) chewable tablet Active Problems Problem Noted Date Sensorineural hearing loss, bilateral 06/14/2019 Persistent atrial fibrillation 02/20/2019 Hypertension 02/20/2019 Encounters Date Type Specialty Care Team Description 10/20/2022 Home Care Visit Alisa Maher, SN - O ASIS RESUMPTION OF RN CARE 10/19/2022 Phone Office Visit Daquan Cool MD 10/13/2022 Orders Only Scanner <No scans attac hed> 10/11/2022 Lab Requisition Nadir Cohen MD 10/04/2022 Orders Only Scanner <No scans attac hed> 10/01/2022 Lab Requisition Nadine Nicole NP 09/24/2022 Home Care Visit Kale Wilson RD RD - NE SSED VISIT 09/22/2022 Home Care Visit Nuris Peters, HOWARD SN - OAS IS TRANSFER 09/20/2022 Home Care Visit Alisa Maher, SN - O ASIS RESUMPTION OF RN CARE 09/19/2022 Orders Only Scanner <No scans attac hed> 09/19/2022 Home Care Visit Nuris Peters, HOWARD CARE REGISTERED TRAVEL NURSE RDINATION 09/17/2022 Orders Only Scanner <No scans attac hed> 09/17/2022 Home Care Visit Nuris Peters RN CARE REGISTERED TRAVEL NURSE RDINATION 09/17/2022 Home Care Visit Nuris Peters RN SN - OAS IS TRANSFER 09/16/2022 Orders Only <No scans attac hed> 09/16/2022 Home Care Visit Alisa Maher CARE C OORDINATION RN 09/16/2022 Home Care Visit Alisa Maher SN - M ISSED VISIT RN 09/15/2022 Home Care Visit Silvia Fisher, OT OT - INITIAL ASSESSMENT 09/15/2022 Orders Only Scanner <No scans attac hed> 09/15/2022 Home Care Visit Silvia Fisher, OT CARE COORDINATION 09/15/2022 Home Care Visit Nuris Peters, HOWARD CARE REGISTERED TRAVEL NURSE RDINATION 09/14/2022 Home Care Visit Ed Morales, PT PT - INITIAL ASSESSMENT 09/14/2022 Home Care Visit Lizette Celis ELECTRONIC SECURITY SPECIALIST - HOME VISIT 09/14/2022 Travel 09/13/2022 Home Care Visit Alisa Maher, SN - H OME VISIT RN 09/13/2022 Home Care Visit Nuris Peters, RN CO-VISIT FOR CLINICAL NEED 09/10/2022 Home Care Visit Alisa Maher, SN - O ASIS START OF CARE RN 09/09/2022 Transcribe Orders Yoselyn Dewitt MD 08/18/2022 Orders Only Scanner <No scans attac hed> 08/11/2022 Office Visit Daquan Cool (Spine ) MD Javier 08/11/2022 Travel 08/02/2022 [...] Sign Reading Time Taken Comments Blood Pressure 118/70 10/20/2022 10:12 AM SOIL TECHNICIAN Pulse 86 10/20/2022 10:46 AM SOIL TECHNICIAN Temperature 36.2 ??C (97.1 ??F) 10/20/2022 10:03 AM SOIL TECHNICIAN Respiratory Rate 20 10/20/2022 10:46 AM SOIL TECHNICIAN Oxygen Saturation 94% 10/20/2022 10:46 AM SOIL TECHNICIAN Inhaled Oxygen Concentration - - Weight 74.6 kg (164 lb 8 oz) 10/20/2022 10:03 AM SOIL TECHNICIAN Height 142.2 cm (4' 8) 08/11/2022 8:35 AM CDT Body Mass Index 36.88 08/11/2022 8:35 AM CDT Plan of Treatment Upcoming Encounters Date Type Specialty Care Team Description 10/22/2022 Home Care Visit Ed Morales , PT [address] [place] [address] (Wo rk) 10/22/2022 Home Care Visit Tawanna Powell, FIELD RECRUITER Health Maintenance Due Date Last Done Comments [...] Priority Date/Time Associated Diagnosis Comme nts SCAN 10/20/2022 12:06 PM Results for this CORRESP-IMAGING SOIL TECHNICIAN procedure ar e in the results section. SCAN 10/20/2022 12:06 PM Results for this CORRESP-IMAGING SOIL TECHNICIAN procedure ar e in the results section. SCAN 10/20/2022 12:05 PM Results for this CORRESP-IMAGING SOIL TECHNICIAN procedure ar e in the results section. SCAN 10/20/2022 12:05 PM Results for this CORRESP-IMAGING SOIL TECHNICIAN procedure ar e in the results section. SCAN 10/18/2022 12:47 PM Results for this CORRESP-IMAGING SOIL TECHNICIAN procedure ar e in the results section. SCAN-RADIOLOGY 10/13/2022 12:00 AM Result s for this REPORT SOIL TECHNICIAN procedure are i n the results section. PROTIME-INR Routine 10/12/2022 8:28 AM Chronic atrial Results for this SOIL TECHNICIAN fibrillation, procedure are in unspecified (HC) the results section. BASIC METABOLIC Routine 10/05/2022 8:25 AM Heart failure, Resu lts for this PANEL SOIL TECHNICIAN unspecified (HC) procedure a re in the results section. CBC W PLT NO DIFF Routine 10/05/2022 8:25 AM Heart failure, Re sults for this SOIL TECHNICIAN unspecified (HC) procedure a re in the results section. ECHO COMPLETE WO Routine 09/16/2022 1:36 PM Hypoxia Results for this CONTRAST CDT Fluid overload procedure are in the results section. SCAN 08/05/2022 1:28 PM Results f or this CORRESP-IMAGING CDT procedure ar e in the results section. from Last 3 Months Results SCAN CORRESP-IMAGING (10/20/2022 12:06 PM SOIL TECHNICIAN)Only the most recent of6 results within the time period is included. Narrative This result has an attachment that is no t available. Scanner OTHER SCAN-RADIOLOGY REPORT (10/13/2022 12:00 AM SOIL TECHNICIAN) Narrative This result has an attachment that is no t available. Scanner OTHER (ABNORMAL) PROTIME-INR (10/12/2022 8:28 AM SOIL TECHNICIAN) P athologist Signature INR 2.5 (H) <1.3 10/12/2022 [place] 10:15 AM [facility] PROTIME 26.2 (H) 12.0 - 13.8 10/12/2022 [place] sec 10:15 AM [facility] Specimen Anatomical Collection Method / Collection Time Recei kam Time (Source) Location / Volume Laterality Blood BLOOD SPECIMEN / Venipuncture / 10/12/2022 8:28 2021 9:59 Unknown Unknown AM SOIL TECHNICIAN AM SOIL TECHNICIAN Narrative [facility] - 10:15 AM SOIL TECHNICIAN ?Therapeutic Range 2.0-3.0 for most anticoagulated [...] Nadir Cohen MD HEMATOLOGY Performing Organization Address City/[facility]/ZIP Code Phon e Number [facility] [address] [facility] [place] [address] (ABNORMAL) CBC W PLT NO DIFF (10/05/2022 8:25 AM SOIL TECHNICIAN) [facility] Method Time Signature WHITE BLOOD 7.1 4.5 - 11.0 10/05/2022 [place] COUNT thou/cu mm 9:43 AM [facility] RED BLOOD COUNT 5.02 4.00 - 10/05/2022 [place] 5.20 9:43 AM [facility] mil/cu mm LABORATORY HEMOGLOBIN 15.5 12.0 - 10/05/2022 [place] 16.0 g/dL 9:43 AM [facility] HEMATOCRIT 49.1 33.0 - 10/05/2022 [place] 51.0 % 9:43 AM [facility] MCV 98 80 - 100 10/05/2022 [place] fL 9:43 AM [facility] MCH 30.9 26.0 - 10/05/2022 [place] 34.0 pg 9:43 AM [facility] MCHC 31.6 (L) 32.0 - 10/05/2022 [place] 36.0 g/dL 9:43 AM [facility] RDW 13.2 11.5 - 10/05/2022 [place] 15.5 % 9:43 AM [facility] PLATELET COUNT 225 140 - 440 10/05/2022 [place] thou/cu mm 9:43 AM [facility] MPV 9.9 6.5 - 11.0 10/05/2022 [place] fL 9:43 AM [facility] Specimen Anatomical Collection Method / Collection Time Recei kam Time (Source) Location / Volume Laterality Blood BLOOD SPECIMEN / Venipuncture / 10/05/2022 8:25 2021 9:22 Unknown Unknown AM SOIL TECHNICIAN AM SOIL TECHNICIAN Nadine Nicole NP HEMATOLOGY Performing Organization Address City/State/ZIP Code Phon e Number [facility] [address] [place] [address] (ABNORMAL) BASIC METABOLIC PANEL (10/05/2022 8:25 AM SOIL TECHNICIAN) Analysis Performed At [facility] Babiest Time Signature SODIUM 144 135 - 145 10/05/2022 [place] mmol/L 10:23 AM [facility] POTASSIUM 3.7 3.5 - 5.0 10/05/2022 [place] mmol/L 10:23 AM [facility] CHLORIDE 96 (L) 98 - 110 10/05/2022 [place] mmol/L 10:23 AM [facility] CO2,TOTAL 41 (HH) 21 - 31 10/05/2022 [place] mmol/L 10:23 AM [facility] ANION GAP 7 5 - 18 10/05/2022 [place] 10:23 AM [facility] GLUCOSE 115 (H) 65 - 100 10/05/2022 [place] mg/dL 10:23 AM [facility] CALCIUM 9.5 8.5 - 10.5 10/05/2022 [place] mg/dL 10:23 AM [facility] BUN 20 8 - 25 10/05/2022 [place] mg/dL 10:23 AM [facility] CREATININE 0.69 0.57 - 10/05/2022 [place] 1.11 mg/dL 10:23 AM [facility] BUN/CREAT RATIO 29 (H) 10 - 20 10/05/2022 [place] 10:23 AM [facility] eGFR >90 >90 10/05/2022 [place] mL/min/1.7 10:23 AM [facility] 3m2 [facility] Comment: As of 2022, eGFR [...] 10/05/2022 8:25 2021 9:22 Unknown Unknown AM SOIL TECHNICIAN AM SOIL TECHNICIAN Nadine Nicoel NP CHEMISTRY Performing Organization Address City/State/ZIP Code Phon e Number [facility] [address] [place] [address] ECHO COMPLETE WO CONTRAST (09/16/2022 1:36 PM [...] ECHOCARDIOGRAM LUCILA QUINTANA ? Accessi on#: ?? [id number] : ?1950 72 years Study Date: ?? 09/16/2022 12:45:11 PM Gender: F ?BP: ? 119/81 mmHg Height: 142.00 cm ?BSA: ?1.68 m? ?? Weight: 80.00 kg ? Tech: ? NWA ? Referring MD: MOIN MESSINA Site: ? [facility] Reading Location: [facility] Procedure: [...] . This study was interpreted [facility]. CC: [facility], Med/ Surg - IP [facility]. ??Final ?? Procedure Note Ed Torres MD - 09/16/2022 ECHOCARDIOGRAM LUCILA QUINTANA : 1950 72 years Study Date: 09/16 12:45:11 PM Gender: F BP: 119/81 mmHg Height: 142.00 cm BSA: 1.68 m? ?? Weight: 80.00 kg Tech: ENMANUELA Referring MD: MONI MESSINA Site: [facility] Reading Location: [facility] Procedure: 2D, Color Doppler and Spectra l [...] . This study was interpreted by an [facility] facility. CC: [facility] [place] [facility] [place], [facility]/ Surg - IP [facility]. Final Moni Messina MD ECHO ORD from Last 3 Months Insurance Payer Benefit Plan / Subscriber ID Effective Dates Phone Addre ss Type Group MEDICARE PART MEDICARE PART [id number] 2013-[place]: [place]S A - HB USE A HB ONLY t [address] [place] [address] MEDICARE PART MEDICARE PART [id number] 2013-[place] AT [place]: CLAIMS B - HB USE B HB ONLY t [address] [place] [address] DONNA RICHARDS [id number] 2021-[place] [address] [address] [place] [address], [place] HB ONLY [id number] MEDICARE PPS HC MEDICARE [id number] 2013-[employer] [address] X 2019 [address] [place] [address] [employer] [place] [address] DONNA RICHARDS [id number] 2021-[employer]en [address] [address] [place], [place] ONLY [id number] (Work) [id number] Layla Quintana Personal/Family Self 1950 [address]) [address] [place] [address] Advance Directives Latest Code Status on File [...] 11:48 AM 02/21/2019 5:24 PM Care Teams Senior Quality Assurance Engineer Relationship Specialty Start Date End Date Yoselyn Dewitt MD PCP - General Family Practice 02/21/191999 [place] [address] [facility] [place] 09/09/22 [address] [place] [id number]
== END 2022-10-09 12:48 | disposition home or self-care (01) ==
LOC: AMB 10-21 17:25
PROVIDERS: PCP Family Medicine; Visit Provider Family Medicine
DX: R09.89 Other specified symptoms and signs involving the circulatory and respiratory systems (principal)
CPT/HCPCS: A0425; A0427

== ENCOUNTER 2022-10-09 13:03 | Emergency (ER) | payer MEDICARE, BC, SELFPAY ==
[2022-10-09 13:08] VITALS: BP 148/90; PULSE 91; RESP 20; TEMP 36.2; O2SAT 96; BMI 36.6
--- NOTE | 2022-10-09 13:28 | CRLHL7_ITS ---
For Patients: As a result of the Century Cures Act, medical imaging exams and procedure reports are released immediately into your electronic medical record. You may view this report before your referring provider. If you have questions, please contact your health care provider. INDICATION: Coughing spell aspiration TECHNIQUE: Chest radiograph 1 view COMPARISON: 09/17/2022 FINDINGS: The sensitivity and specificity of the exam are severe limited by the patient`s body habitus. Mediastinum: The mediastinum is normal in appearance. Severe cardiomegaly is noted without interval change. Lung: [id number] perihilar edema, vascular congestion and bibasilar atelectasis noted. No sign of pleural effusion seen. No pneumothorax is identified. Bone and Soft tissue: Unremarkable for age. IMPRESSIONS: 1. [id number] perihilar edema, vascular congestion and bibasilar atelectasis noted. 2. Severe cardiomegaly is noted without interval change. Dictated by Erik Hill MD @ 10/09/2022 2:04:48 PM Dictated by: Erik Hill MD @ 10/09/2022 14:04:51 (Electronically Signed)
--- NOTE | 2022-10-09 13:30 | ED.GENADULT ---
HPI - General Adult General Chief complaint: Cough Stated complaint: Aspirated Time Seen by Provider: 10/09/22 13:13 History of Present Illness HPI narrative: This 72-year-old female is in a care home facility and typically using oxygen. There has been a hope that she could be weaned off of oxygen. Today she had a coughing spell at lunch and had decreased saturations at that time. She comes in here for evaluation of her oximetry which was low but now has resumed back to normal. The patient does have a history of aspiration and her caregiver states that she does have trouble with swallowing frequently. She states that she does better if she takes small amounts. Currently she feels back to normal. She is benefiting from 2 L oxygen by nasal cannula. Her oximetry without oxygen at rest is around 88 89%. With 2 L she is up around 95 her 96%. She does not report any fevers. Related Data Home Medications Medication Instructions Recorded Confirmed alendronate 70 mg tablet 70 mg PO .Every 7 Days 05/11/22 09/19/22 calcium carbonate 500 mg calcium 1,000 mg PO DAILY 05/11/22 09/19/22 (1,250 mg) tablet cholecalciferol (vitamin D3) 50 2,000 unit PO DAILY 08/03/22 09/19/22 mcg (2,000 unit) capsule digoxin 125 mcg (0.125 mg) tablet 125 mcg PO DAILY 08/03/22 09/19/22 potassium chloride 10 mEq 10 meq PO TIDWM 09/08/22 09/19/22 tablet,extended release(part/cryst) calcitonin (salmon) 200 1 spray intranasal (ALT) DAILY 09/16/22 09/19/22 unit/actuation nasal spray diltiazem HCl 180 mg 360 mg PO DAILY 09/16/22 09/19/22 capsule,extended release 24 hr (Cartia XT) lisinopril 40 mg tablet 40 mg PO DAILY 09/16/22 09/19/22 metoprolol succinate 100 mg 150 mg PO DAILY 09/16/22 09/19/22 tablet,extended release 24 hr Previous Rx's Medication Instructions Recorded warfarin 5 mg tablet See Rx Instructions PO DAILY #102 08/03/22 tabs Home Oxygen #1 ea 09/18/22 torsemide 20 mg tablet 60 mg PO BID #180 tabs 09/18/22 Allergies Allergy/AdvReac Type Severity Reaction Status Date / Time hydrocortisone Allergy Unknown Verified 09/08/22 14:02 hydrochlorothiazide AdvReac Intermediate hyponatremi Verified 09/08/22 14:02 a amlodipine AdvReac Mild Edema Verified 09/08/22 14:02 Review of Systems Status of ROS: Reports: 10 or more systems reviewed and unremarkable except as noted in History and below Narrative: Constitutional: No fevers, no weight gain or loss. Eyes: No discharge. No vision changes. HENT: No congestion, no sore throat, no ear pain. Cardiovascular: No chest pain, no palpitations. Respiratory: Coughing episodes with associated shortness of breath. Gastrointestinal: No abdominal pain, no vomiting, no diarrhea. Genitourinary: No dysuria, no hematuria. Musculoskeletal: Normal range of motion. She is in rehab for back pain. Skin: No rashes, no pruritis. Neurological: No dizziness, weakness, sensory change, speech change. Endo/Heme/Allergies: No bruising or bleeding. No polydipsia. Pysch: no suicidality, no anxiety, no insomnia. All other systems reviewed and are negative. [facility] Medical History (Updated 10/09/22 @ 14:47 by Parish Lerma MD) Acute on chronic combined systolic and diastolic heart failure, NYHA class 2 (04/2022) Acute on chronic right-sided heart failure Angioma of skin Atrial fibrillation with normal ventricular rate (03/2019) Calculus of bile duct (04/2022) Chronic heart failure with preserved ejection fraction CO2 retention Daytime somnolence Fluid overload History of acute congestive heart failure (2016) History of nuclear stress test Hypertension (01/04/07) Hyponatremia Hypoxia Long-term (current) use of anticoagulants, INR goal 2.0-3.0 Lumbar radiculopathy Mild cognitive impairment (2020) Physical deconditioning Right middle lobe pneumonia Systolic congestive heart failure Temporal headache Tubular adenoma of colon (2016) Surgical History History of bilateral cataract extraction History of cholecystectomy History of ear surgery History of hysterectomy for benign disease History of tonsillectomy Hx of appendectomy Status post endoscopic retrograde cholangiopancreatography (05/12/22) Family History Mother Brain aneurysm, Onset Age: 65 Father Coronary artery disease, Onset Age: 62 Brother Coronary artery disease, Onset Age: 64 Sister Colon cancer, Onset Age: 56 Social History Narrative: exercises regularly- 1-2/week: exercise bike, twisting , independent living 3 links, 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 HEENT: Normocephalic, atraumatic. Neck: Normal range of motion. Nontender. Supple. Heart: Regular. No murmurs. Normal rate. Intact distal pulses. Lungs: Clear to auscultation. No chest discomfort. No wheezes, rhonchi, or rales. Abdomen: Normal bowel sounds. Nontender. No rebound tenderness. Genitalia: Deferred. Back: No midline tenderness. Normal range of motion. Extremities: Normal range of motion. No injury. Bilateral pedal edema. She is wearing compression stockings. Skin: Intact. No rash. Warm. No erythema or pallor. Neurologic: No altered sensation. No weakness. Alert and oriented. Psychiatric: No suicidality. No anxiety or depression. No insomnia. Nursing notes and vitals signs are reviewed. Const: Vital Signs, click to edit/add: Vital Signs - 24 hr 10/09/22 13:08 Temperature 97.2 F L Pulse Rate [Right Pulse Oximeter] 91 Respiratory Rate 20 Blood Pressure [Ri ght Upper Arm] 148/90 H Pulse Oximetry 96 Oxygen Delivery Me thod Room Air Course Vital Signs Vital signs: Initial Vital Signs Temperature 97.2 F L 10/09/22 13:08 Temperature Source Temporal Artery Scan 10/09/22 13:08 Pulse Rate 91 10/09/22 13:08 Respiratory Rate 20 10/09/22 13:08 Blood Pressure 148/90 H 10/09/22 13:08 Blood Pressure Mean 109 10/09/22 13:08 Blood Pressure Position Semi-Fowlers 10/09/22 13:08 Pulse Oximetry 96 11/26/22 13:08 Oxygen Delivery Method 10/09/22 13:08 Vital Signs Temperature 97.2 F L 10/09/22 13:08 Pulse Rate 91 10/09/22 13:08 Respiratory Rate 20 10/09/22 13:08 Blood Pressure 148/90 H 10/09/22 13:08 Pulse Oximetry 96 10/09/22 13:08 Oxygen Delivery Method 10/09/22 13:08 Temperature 97.2 F L 10/09/22 13:08 Pulse Rate 91 10/09/22 13:08 Respiratory Rate 20 10/09/22 13:08 Blood Pressure 148/90 H 10/09/22 13:08 Pulse Oximetry 96 10/09/22 13:08 Oxygen Delivery Method 10/09/22 13:08 Medical Decision Making MDM Narrative Medical decision making narrative: This patient has been on oxygen in her rehab facility. She does not report any symptoms of shortness of breath currently but did have a coughing episode where she did become hypoxic temporarily. She states that she feels back to her normal baseline and does benefit from a couple L of oxygen by nasal cannula. I did turned the oxygen off and she desaturated to 88-89%. Chest x-ray done today shows no acute findings. She may have had some aspiration that triggered her cough prior to arrival. At this point there is no evidence of infection related to this. The patient reports that she has some difficulty with swallowing at times and may benefit from a swallowing study. She is okay to return home otherwise to continue current plans. Imaging Data Chest x-ray: Radiologist's impression: 1. [id number] perihilar edema, vascular congestion and bibasilar atelectasis noted. 2. Severe cardiomegaly is noted without interval change. Discharge Plan Discharge Clinical Impression: Swallowing dysfunction, Hypoxia Patient Disposition: Home, Self-Care Condition: Stable Additional Instructions: Continue current plans. Follow up with MD or return if worsening. Prescriptions: No Action cholecalciferol (vitamin D3) 50 mcg (2,000 unit) capsule 2,000 unit PO DAILY digoxin 125 mcg (0.125 mg) tablet 125 mcg PO DAILY potassium chloride 10 mEq tablet,ER particles/crystals 10 meq PO TIDWM calcium carbonate 500 mg calcium (1,250 mg) tablet 1,000 mg PO DAILY alendronate 70 mg tablet 70 mg PO .Every 7 Days Rx Instructions: PT TAKES ON MONDAYS diltiazem HCl [Cartia XT] 180 mg capsule,extended release 24hr 360 mg PO DAILY metoprolol succinate 100 mg tablet extended release 24 hr 150 mg PO DAILY calcitonin (salmon) 200 unit/actuation spray,non-aerosol 1 spray intranasal (ALT) DAILY lisinopril 40 mg tablet 40 mg PO DAILY torsemide 20 mg tablet 60 mg PO BID Qty: 180 0RF (DME) Home Oxygen Misc See Rx Instructions .Route Qty: 1 0RF Rx Instructions: NC oxygen, 2L at Rest, 3L with activity warfarin 5 mg tablet See Rx Instructions PO DAILY Qty: 102 0RF Protocol: Dose Management Condition: Tuesday Dose/Route: 7.5 % Instruction: 1.5 x 5 % tablets Condition: Tuesday Dose/Route: 5 % Instruction: 1 x 5 % tablet Condition: Tuesday Dose/Route: 5 % Instruction: 1 x 5 % tablet Condition: Tuesday Dose/Route: 7.5 % Instruction: 1.5 x 5 % tablets Condition: Dose/Route: 5 % Instruction: 1 x 5 % tablet Condition: Tuesday Dose/Route: 7.5 % Instruction: 1.5 x 5 % tablets Condition: Tuesday Dose/Route: 5 % Instruction: 1 x 5 % tablet Protocol Text: Adjustment Start Date: Tuesday09/08/22 INR Value: 3.0 INR Date: 09/08/22 Recheck Date: 10/08/22 Rx Instructions: 5 mg - 7.5 mg orally daily; take 7.5 mg on Tuesday/Tuesday/Tuesday and 5 mg all other days. Follow Up/Referrals: Yoselyn Dewitt MD [Primary Care Provider] - Stand Alone Forms: [employer] Info Instructions
--- OUTSIDE RECORDS SUMMARY | 2022-10-09 13:57 | XMS_ITS | Clinical Summary ---
:1950 Author Organization [facility] Address [address] [place] [address] Care Team Providers Name Role Phone Unavailable Primary Care Provider Unavailable Source Comments Patient records contain information from all sites at [facility]. For routine questions regarding patient records, call [phone] during business hours, M-F 8:00 AM - 5:00 PM Central Time. Record requests for emergency care only can be directed to [phone] at any time.[facility] Allergies Active Allergy Reactions Severity Noted [...] Team Description 09/20/2022 External Outreach Nephrology and [place], No Show Hypertension Ion Tamayo Jr., D.O. [...] e / Group Dates MEDICARE MEDICARE A [id number] 2013-Pres [address] [place] [address] BLUE CROSS BC[employer] [place] [id number] 2021-Pres [phone] PO KISHAN X Cost Share BLUE SHIELD BLUE COST ent [phone] [place] [address]
--- OUTSIDE RECORDS SUMMARY | 2022-10-09 13:57 | XMS_ITS | Encounter Summary ---
:1950 Author Organization [facility] Address [address] [place] [address] Care Team Providers Name Role Phone Unavailable Primary Care Provider Unavailable Reason for Visit Appointment Request (Routine) - Authorized Specialty Diagnoses / Procedures Referred By Contact Refer red To Contact Nephrology and Hypertension Referral ID Status Reason Start Date Expiration Date Visits V isits Requested Authorized [id number] Authorized 08/27/2022 08/27/2023 1 Encounter Details Date Type Department Care Team Description 09/20/2022 External Outreach Division of Nephrology Dallin Donahue No Show and Hypertension in [place] De[place], [place] [address] [facility] [address] [place] [phone] (Wo rk) Social History Tobacco Use Types Packs/Day Years Used Date Smoking Tobacco: Never Assessed Sex Assigned at Date Recorded Not on file documented as of this encounter Plan of Treatment Not on filedocumented as of this encounter Visit Diagnoses Not on filedocumented in this encounter
--- OUTSIDE RECORDS SUMMARY | 2022-10-09 13:57 | XMS_ITS | Encounter Summary ---
:1950 Author Organization [facility] Address [address] [place] [address] Care Team Providers Name Role Phone Unavailable Primary Care Provider Unavailable Reason for Visit Appointment Request (Routine) - Closed Specialty Diagnoses / Procedures Referred By Contact Refer red To Contact Nephrology and Yoselyn Dewitt Hypertension M.D. [address] [place] [address] Referral ID Status Reason Start Date Expiration Date Visits Requ ested Visits Authorized [id number] Closed 07/14/2022 07/14/2023 1 Encounter Details Date Type Department Care Team Description 07/20/2022 External Outreach Division of Arthur Donahue (Primary Dx); Nephrology and Ion Tamayo Jr., Other Heart Failure ([facility]); Hypertension in [place] Atrial Fibrillation Longstanding Persist ent ([facility]); [place], [place] [address] [facility] Hypertension And Chronic Kidney Disease Stage 1; [address] [place], [place] Fracture T7-8 Wedge Compress ion Closed Initial ([facility]); [place] [address] Anticoagulant Therapy; [id number] Loss Hearing Sensorineural B ilateral Social History [...] Provider: DR Dewitt SUBJECTIVE REASON FOR VISIT [place] out reach CKD [facility] Consultation regards hyponatremia, [...] back in 2005 when I note that [place] records demonstrate serumsodium of 136 mEq per [...] in a supervised living environment her close friend/band and cuff cutter, Natalie, a retired pharmacist helps care for her. She orchestrate the patient's medications. 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 There is some documentation [...] cardiorenal perspective. #3 Atrial Fibrillation Longstanding Persistent ([facility]) Her heart rate is well controlled, she is on oral anticoagulation with an INR of 1.8. 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 Please see above discussion #5 Fracture T7-8 Wedge Compression Closed Initial ([facility]) Some of her acute pain may be [...] Failure (HCC) Atrial Fibrillation Longstanding Persist ent ([facility]) Hypertension And Chronic Kidney Disease Stage 1 Fracture T7-8 Wedge Compression Closed I nitial ([facility]) Anticoagulant Therapy Loss Hearing Sensorineural Bilateral documented in this encounter
--- OUTSIDE RECORDS SUMMARY | 2022-10-09 13:57 | XMS_ITS | Clinical Summary ---
:1950 Author Organization [facility] Address [place] [address] Care Team Providers Name Role Phone Yoselyn Dewitt MD Primary Care Provider [phone] [facility] [phone] Allergies Active Allergy Reactions Severity Noted [...] a day prn calcitonin salmon, Inhale 1 Thelma 0 Active 200 units per into affected [...] Encounters Date Type Specialty Care Team Description 10/01/2022 Lab Requisition Nadine Nicole NP 09/24/2022 Home Care Visit Kale Wilson RD RD - OK SSED VISIT 09/22/2022 Home Care Visit Nuris Peters RN SN - OAS IS TRANSFER 09/20/2022 Home Care Visit Alisa Maher RN SN - OASIS RESUMPTION OF CARE 09/19/2022 Home Care Visit Nuris Peters RN CARE WOODENWARE ASSEMBLER RDINATION 09/17/2022 Home Care Visit Nuris Peters RN CARE WOODENWARE ASSEMBLER RDINATION 09/17/2022 Home Care Visit Nuris Peters RN SN - OAS IS TRANSFER 09/16/2022 Orders Only <No scans attac hed> 09/16/2022 Home Care Visit Alisa Maher RN CAR E COORDINATION 09/16/2022 Home Care Visit Alisa Maher RN SN - MISSED VISIT 09/15/2022 Home Care Visit Silvia Fisher, OT OT - INITIAL ASSESSMENT 09/15/2022 Home Care Visit Silvia Fisher, OT CARE COORDINATION 09/15/2022 Home Care Visit Nuris Peters RN CARE WOODENWARE ASSEMBLER RDINATION 09/14/2022 Home Care Visit Ed Morales, PT PT - INITIAL ASSESSMENT 09/14/2022 Home Care Visit Lizette Celis SPA ASSISTANT MANAGER - HOME VISIT 09/14/2022 Travel 09/13/2022 Home [...] Sign Reading Time Taken Comments Blood Pressure 110/66 09/20/2022 11:18 AM CERTIFIED MASTER SAFECRACKER Pulse 96 09/20/2022 11:18 AM CERTIFIED MASTER SAFECRACKER Temperature 37.8 ??C (100 ??F) 09/20/2022 11:01 AM CERTIFIED MASTER SAFECRACKER Respiratory Rate 22 09/20/2022 11:01 AM CERTIFIED MASTER SAFECRACKER Oxygen Saturation 92% 09/20/2022 11:18 AM CERTIFIED MASTER SAFECRACKER Inhaled Oxygen Concentration - - Weight 79.8 [...] Name Priority Date/Time Associated Diagnosis Comme nts BASIC METABOLIC Routine 10/05/2022 8:25 AM Heart failure, Resu lts for this PANEL CERTIFIED MASTER SAFECRACKER unspecified (HC) procedure a re in the results section. CBC W PLT NO DIFF Routine 10/05/2022 8:25 AM Heart failure, Re sults for this CERTIFIED MASTER SAFECRACKER unspecified (HC) procedure a re in the results section. ECHO COMPLETE WO Routine 09/16/2022 1:36 PM Hypoxia Results for this CONTRAST CDT Fluid overload procedure are in the results section. SCAN 08/05/2022 1:28 PM Results f or this CORRESP-IMAGING CDT procedure ar e in the results section. from Last 3 Months Results (ABNORMAL) CBC W PLT NO DIFF (10/05/2022 8:25 AM CERTIFIED MASTER SAFECRACKER) [facility] gist Method Time Signature WHITE BLOOD 7.1 4.5 - 11.0 10/05/2022 [place] COUNT thou/cu mm 9:43 AM [facility] RED BLOOD COUNT 5.02 4.00 - 10/05/2022 [place] 5.20 9:43 AM [facility] mil/cu mm LABORATORY HEMOGLOBIN 15.5 12.0 - 10/05/2022 [place] 16.0 g/dL 9:43 AM [facility] HEMATOCRIT 49.1 33.0 - 10/05/2022 [place] 51.0 % 9:43 AM [facility] MCV 98 80 - 100 10/05/2022 [place] fL 9:43 AM [facility] MCH 30.9 26.0 - 10/05/2022 [place] 34.0 pg 9:43 AM [facility] MCHC 31.6 (L) 32.0 - 10/05/2022 [place] 36.0 g/dL 9:43 AM [facility] RDW 13.2 11.5 - 10/05/2022 [place] 15.5 % 9:43 AM [facility] PLATELET COUNT 225 140 - 440 10/05/2022 [place] thou/cu mm 9:43 AM [facility] MPV 9.9 6.5 - 11.0 10/05/2022 [facility] fL 9:43 AM [facility] Specimen Anatomical Collection Method / Collection Time Recei kam Time (Source) Location / Volume Laterality Blood BLOOD SPECIMEN / Venipuncture / 10/05/2022 8:25 2021 9:22 Unknown Unknown AM CERTIFIED MASTER SAFECRACKER AM CERTIFIED MASTER SAFECRACKER Nadine Nicole NP HEMATOLOGY Performing Organization Address City/State/ZIP Code Phon e Number [facility] [address] [facility] [place] [address] (ABNORMAL) BASIC METABOLIC PANEL (10/05/2022 8:25 AM [facility] [[email or web address] Analysis Performed At Patho logist Time Signature SODIUM 144 135 - 145 10/05/2022 [place] mmol/L 10:23 AM [facility] POTASSIUM 3.7 3.5 - 5.0 10/05/2022 [place] mmol/L 10:23 AM [facility] CHLORIDE 96 (L) 98 - 110 10/05/2022 [place] mmol/L 10:23 AM [facility] CO2,TOTAL 41 (HH) 21 - 31 10/05/2022 [place] mmol/L 10:23 AM [facility] ANION GAP 7 5 - 18 10/05/2022 [facility] 10:23 AM [facility] GLUCOSE 115 (H) 65 - 100 10/05/2022 [place] mg/dL 10:23 AM [facility] CALCIUM 9.5 8.5 - 10.5 10/05/2022 [place] mg/dL 10:23 AM [facility] BUN 20 8 - 25 10/05/2022 [place] mg/dL 10:23 AM [facility] CREATININE 0.69 0.57 - 10/05/2022 [place] 1.11 mg/dL 10:23 AM [facility] BUN/CREAT RATIO 29 (H) 10 - 20 10/05/2022 [facility] 10:23 AM [facility] eGFR >90 >90 10/05/2022 [place] mL/min/1.7 10:23 AM [facility] 3m2 LABORATORY Comment: As of 2022, eGFR is calcu lated by the CKD-EPI creatinine equation without race adjustment. eGFR can be inf luenced by muscle mass, exercise, and diet. The reported eGFR is an estimation only and is only applicable if the renal function is stable. Specimen Anatomical Collection Method / Collection Time Recei kam Time (Source) Location / Volume Laterality Blood BLOOD SPECIMEN / Venipuncture / 10/05/2022 8:25 2021 9:22 Unknown Unknown AM CERTIFIED MASTER SAFECRACKER AM [facility] [[email or web address]] Nadine Nicole DIRECT MAIL MANAGER CHEMISTRY Performing Organization Address City/State/ZIP Code Phon e Number [facility] [address] [place] [address] ECHO COMPLETE WO CONTRAST (09/16/2022 1:36 PM [...] ECHOCARDIOGRAM LUCILA QUINTANA ? Accessi on#: ?? [id number] : ?1950 72 years Study Date: ?? 09/16/2022 12:45:11 PM Gender: F ?BP: ? 119/81 mmHg Height: 142.00 cm ?BSA: ?1.68 m? ?? Weight: 80.00 kg ? Tech: ? NWA ? Referring MD: MONI MESSINA Site: ? [facility] Reading Location: [place] Procedure: 2D, Color Doppler and Spectra l [...] . This study was interpreted by an [facility] [[email or web address] redited facility. CC: [facility] [place], Med/ Surg - IP [facility]. ??Final ?? Procedure Note Ed Torres MD - 09/16/2022 ECHOCARDIOGRAM LUCILA QUINTANA : 1950 72 years Study Date: 09/16 12:45:11 PM Gender: F BP: 119/81 mmHg Height: 142.00 cm BSA: 1.68 m? ?? Weight: 80.00 kg Tech: NWA Referring MD: MONI MESSINA Site: [facility] Reading Location: [place] Procedure: 2D, Color Doppler and Spectra l [...] . This study was interpreted by an [facility] [email or web address]. CC: [facility] [place], Med/ Surg - IP [facility]. Final Moni Messina MD ECHO ORD SCAN CORRESP-IMAGING (08/05/2022 1:28 PM CDT) Narrative This result has an attachment that is no t available. Scanner OTHER from Last 3 Months Insurance Payer Benefit Plan / Subscriber ID Effective Dates Phone Addre ss Type Group MEDICARE PART MEDICARE PART [id number] 2013-[place]S A - HB USE A HB [place] [address] [place] [address] MEDICARE PART MEDICARE PART [id number] 2013-[place]: CLAIMS B - HB USE B HB ONLY t [address] [place] [address] BLUE CROSS BLUE CROSS [id number] 2021-[place]en [address] [address] [place] [place] ONLY [id number] MEDICARE PPS HC MEDICARE [id number] 2013-Presen [address] [place] [address] BLUE CROSS MR BLUE CROSS [id number] 2021-Presen [address] [address] [place] [address] [place] ONLY [id number] Advance Directives Latest Code Status on File [...] 11:48 AM 02/21/2019 5:24 PM Care Teams Bleach Maker Relationship Specialty Start Date End Date Yoselyn Dewitt MD PCP - General Family Practice 02/21/191999 [place] [address] [facility] 09/09/[address] [address]
[2022-10-09 14:00] VITALS: RESP 20; O2SAT 94
--- NOTE | 2022-10-09 14:58 | RESP.RT ---
Patient was seen on arrival to ED via EMS. On Nasal Cannula 2 Lpm, SaO2 94%, respiratory rate 20/minute. Bilateral breath sounds with inspiratory/expiratory slight crackles and wheeze on right, diminished, fine crackles inspiratory/expiratory on left.
[2022-10-09 15:00] VITALS: PULSE 84; RESP 16; O2SAT 94
[2022-10-09 15:09] VITALS: BP 148/90; PULSE 91; RESP 20; TEMP 36.2
--- NOTE | 2022-10-09 15:09 | ED.NURSE ---
Per MD, discharge on RA. Then Pt to use O2 via NC at home. Pt agrees to this plan.
== END 2022-10-09 15:28 | disposition home or self-care (01) ==
PROVIDERS: Emergency Provider Emergency Medicine Emergency Medical Services; PCP Family Medicine
DX: R13.10 Dysphagia, unspecified (principal); R09.02 Hypoxemia
CPT/HCPCS: 71045; 99284

== ENCOUNTER 2022-10-13 10:10 | Outpatient (REF) | payer SELFPAY ==
--- NOTE | 2022-10-13 10:15 | CRLHL7_ITS ---
For Patients: As a result of the Century Cures Act, medical imaging exams and procedure reports are released immediately into your electronic medical record. You may view this report before your referring provider. If you have questions, please contact your health care provider. INDICATION: Dysphagia. TECHNIQUE: Recorded video swallow performed in conjunction speech therapy. FINDINGS: The patient tolerated all preparations of barium well. There was minimal flash penetration with thin barium once or twice throughout the examination. No aspiration. Please see detailed notes from speech therapy. 1 minute 39 seconds fluoroscopy time utilized. IMPRESSION: Flash penetration with thin barium. No aspiration. Please see detailed notes from speech therapy. Dictated by Elmer Marks MD @ 10/13/2022 11:01:57 AM (Electronically Signed)
--- OUTSIDE RECORDS SUMMARY | 2022-10-13 10:27 | XMS_ITS | Clinical Summary ---
:1950 Author Organization [facility] Address [address] [place] [address] Care Team Providers Name Role Phone Unavailable Primary Care Provider Unavailable Source Comments Patient records contain information from all sites at [facility]. For routine questions regarding patient records, call [phone] during business hours, M-F 8:00 AM - 5:00 PM Central Time. Record requests for emergency care only can be directed to [phone] at any time.[facility] Allergies Active Allergy Reactions Severity Noted [...] Team Description 09/20/2022 External Outreach Nephrology and Center [place], [place] Show Hypertension Ion Tamayo Jr., D.O. [...] e / Group Dates MEDICARE MEDICARE A [id number] 2013-Pres [address] [place] [address] BLUE CROSS BCBS OSAGE [id number] 2021-Pres [phone] PO KISHAN X Cost Share BLUE SHIELD BLUE COST ent [phone] [place] [address]
--- OUTSIDE RECORDS SUMMARY | 2022-10-13 10:27 | XMS_ITS | Encounter Summary ---
:1950 Author Organization [facility] Address [address] [place] [address] Care Team Providers Name Role Phone Unavailable Primary Care Provider Unavailable Reason for Visit Appointment Request (Routine) - Authorized Specialty Diagnoses / Procedures Referred By Contact Refer red To Contact Nephrology and Hypertension Referral ID Status Reason Start Date Expiration Date Visits V isits Requested Authorized [id number] Authorized 08/27/2022 08/27/2023 1 Encounter Details Date Type Department Care Team Description 09/20/2022 External Outreach Division of Nephrology Dallin Donahue No Show and Hypertension in [place], [place] [address] [facility] [address] [place] [phone] (Wo rk) Social History Tobacco Use Types Packs/Day Years Used Date Smoking Tobacco: Never Assessed Sex Assigned at Date Recorded Not on file documented as of this encounter Plan of Treatment Not on filedocumented as of this encounter Visit Diagnoses Not on filedocumented in this encounter
--- OUTSIDE RECORDS SUMMARY | 2022-10-13 10:27 | XMS_ITS | Encounter Summary ---
:1950 Author Organization [facility] Address [address] [place] [address] Care Team Providers Name Role Phone Unavailable Primary Care Provider Unavailable Reason for Visit Appointment Request (Routine) - Closed Specialty Diagnoses / Procedures Referred By Contact Refer red To Contact Nephrology and Yoselyn Dewitt Hypertension M.D. 1999 [place] [address] Referral ID Status Reason Start Date Expiration Date Visits Requ ested Visits Authorized [id number] Closed 07/14/2022 07/14/2023 1 Encounter Details Date Type Department Care Team Description 07/20/2022 External Outreach Division of Arthur Donahue (Primary Dx); Nephrology and Ion Tamayo Jr., Other Heart Failure ([facility]); Hypertension in [place] Atrial Fibrillation Longstanding Persist ent ([facility]); [place], [place] [address] [facility] Hypertension And Chronic Kidney Disease Stage 1; [address] [place], [place] Fracture T7-8 Wedge Compress ion Closed Initial ([facility]); [place] [address] Anticoagulant Therapy; [id number] Loss Hearing Sensorineural B ilateral Social History [...] Provider: DR Dewitt SUBJECTIVE REASON FOR VISIT [place] out [facility] Consultation regards hyponatremia, [...] back in 2005 when I note that [place] records demonstrate serumsodium of 136 mEq per [...] in a supervised living environment her close friend/route delivery clerk, Natalie, a retired pharmacist helps care for her. She orchestrate the patient's medications. 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 There is some [...] #3 Atrial Fibrillation Longstanding Persistent ([facility]) Her heart rate is well controlled, she is on oral anticoagulation with an INR of 1.8. 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 Please see above discussion #5 Fracture T7-8 Wedge Compression Closed Initial ([facility]) Some of her acute pain may [...] Atrial Fibrillation Longstanding Persist ent ([facility]) Hypertension And Chronic Kidney Disease Stage 1 Fracture T7-8 Wedge Compression Closed I nitial ([facility]) Anticoagulant Therapy Loss Hearing Sensorineural Bilateral documented in this encounter
--- OUTSIDE RECORDS SUMMARY | 2022-10-13 10:27 | XMS_ITS | Clinical Summary ---
:1950 Author Organization [facility] [place] [address] Care Team Providers Name Role Phone Yoselyn Dewitt MD Primary Care Provider [phone] [facility] Unavailable [phone] Allergies Active Allergy Reactions Severity Noted Date Comments Hydrochlorothiazide GI Upset 07/20/2022 Hydrocortisone *Unknown 02/21/2019 Medications Medication Sig Dispensed Refills Start Date End Date Status digoxin (LANOXIN) 125 Take 1 tablet by 0 02/12/2019 Active mcg tablet mouth once daily. metoprolol succinate [The details of 0 02/21/2019 Active (TOPROL XL) 100 mg the medication Sustained-Release are not available tabletIndications: because there are Persistent atrial pending changes fibrillation (HC), by a home health Hypertension, clinician.] unspecified type diltiazem CD (CARDIZEM [The details of 30 capsule 2 04/11/2019 Active CD) 240 mg extended the medication release 24 hr are not available capsuleIndications: because there are Persistent atrial pending changes fibrillation (HC), by a home health Hypertension, clinician.] unspecified type torsemide (DEMADEX) 20 [The details of 0 01/13/2021 Active mg tabletIndications: the medication Persistent atrial are not available fibrillation (HC) because there are pending changes by a home health clinician.] polyethylene glycoL Mix 1 scoop in 0 Active (Miralax) 17 gram/dose liquid then take powder by mouth once daily if needed for Constipation. potassium chloride [The details of 0 06/22/2022 Active (KLOR-CON 10; K-TAB) the medication 10 mEq are not available Controlled-Release because there are tablet pending changes by a home health clinician.] dilTIAZem (DILACOR XR; Take 360 mg by 0 09/10/2022 Active DILTIA XT) 180 mg mouth once daily. Extended-Release capsule lisinopriL (PRINIVIL; Take 40 mg by 0 Active ZESTRIL) 40 mg tablet mouth once daily. warfarin (COUMADIN) 5 [The details of 0 Active mg tablet the medication are not available because there are pending changes by a home health clinician.] alendronate (FOSAMAX) Take 70 mg by 0 Active 70 mg tablet mouth every Tuesday morning. cholecalciferol Take 2,000 units 0 Active (Vitamin D-3) 2,000 by mouth once unit capsule daily. acetaminophen (TYLENOL Take 500 mg by 0 Active EXTRA STRGTH) 500 mg mouth 3 times tablet daily if needed for Pain. 1-2 tabs thress times a day prn calcitonin salmon, 200 Inhale 1 Buda 0 Active units per actuation, into affected nasal (MIACALCIN, nostril(s) once FORTICAL) 200 daily. unit/actuation nasal alternating spray nostrils daily Active Problems Problem Noted Date Sensorineural hearing loss, bilateral 06/14/2019 Persistent atrial fibrillation 02/20/2019 Hypertension 02/20/2019 Encounters Date Type Specialty Care Team Description 10/11/2022 Lab Requisition Nadir Cohen MD 10/01/2022 Lab Requisition Nadine Nicole NP 09/24/2022 Home Care Visit Kale Wilson RD RD - AR SSED VISIT 09/22/2022 Home Care Visit Nuris Peters RN SN - OAChucky IS TRANSFER 09/20/2022 Home Care Visit Alisa Maher RN SN - OASIS RESUMPTION OF CARE 09/19/2022 Home Care Visit Nuris Peters RN CARE GOSPEL SINGER RDINATION 09/17/2022 Home Care Visit Nuris Peters RN CARE GOSPEL SINGER RDINATION 09/17/2022 Home Care Visit Nuris Peters RN SN - OAS IS TRANSFER 09/16/2022 Orders Only <No scans attac hed> 09/16/2022 Home Care Visit Alisa Maher RN CAR E COORDINATION 09/16/2022 Home Care Visit Alisa Maher RN SN - MISSED VISIT 09/15/2022 Home Care Visit Silvia Fisher OT OT - INITIAL ASSESSMENT 09/15/2022 Home Care Visit Silvia Fisher OT CARE COORDINATION 09/15/2022 Home Care Visit Nuris Peters RN CARE GOSPEL SINGER RDINATION 09/14/2022 Home Care Visit Ed Morales, PT PT - INITIAL ASSESSMENT 09/14/2022 Home Care Visit Lizette Celis COIL BUILDER - HOME VISIT 09/14/2022 Travel 09/13/2022 Home [...] Comments Blood Pressure 110/66 09/20/2022 11:18 AM MONITOR TECHNICIAN Pulse 96 09/20/2022 11:18 AM MONITOR TECHNICIAN Temperature 37.8 ??C (100 ??F) 09/20/2022 11:01 AM MONITOR TECHNICIAN Respiratory Rate 22 09/20/2022 11:01 AM MONITOR TECHNICIAN Oxygen Saturation 92% 09/20/2022 11:18 AM MONITOR TECHNICIAN Inhaled Oxygen Concentration - - Weight 79.8 [...] Name Priority Date/Time Associated Diagnosis Comme nts PROTIME-INR Routine 10/12/2022 8:28 AM Chronic atrial Results for this MONITOR TECHNICIAN fibrillation, procedure are in unspecified (HC) the results section. BASIC METABOLIC Routine 10/05/2022 8:25 AM Heart failure, Resu lts for this PANEL MONITOR TECHNICIAN unspecified (HC) procedure a re in the results section. CBC W PLT NO DIFF Routine 10/05/2022 8:25 AM Heart failure, Re sults for this MONITOR TECHNICIAN unspecified (HC) procedure a re in the results section. ECHO COMPLETE WO Routine 09/16/2022 1:36 PM Hypoxia Results for this CONTRAST CDT Fluid overload procedure are in the results section. SCAN 08/05/2022 1:28 PM Results f or this CORRESP-IMAGING CDT procedure ar e in the results section. from Last 3 Months Results (ABNORMAL) PROTIME-INR (10/12/2022 8:28 AM MONITOR TECHNICIAN) P athologist Signature INR 2.5 (H) <1.3 10/12/2022 [place] 10:15 AM [facility] PROTIME 26.2 (H) 12.0 - 13.8 10/12/2022 [place] sec 10:15 AM [facility] Specimen Anatomical Collection Method / Collection Time Recei kam Time (Source) Location / Volume Laterality Blood BLOOD SPECIMEN / Venipuncture / 10/12/2022 8:28 2021 9:59 Unknown Unknown AM MONITOR TECHNICIAN AM MONITOR TECHNICIAN Narrative [facility] - 10:15 AM MONITOR TECHNICIAN ?Therapeutic Range 2.0-3.0 for most anticoagulated patients 2.5-3.5 or 4.0 for high risk patients The INR is only used for patients on sta ble oral anticoagulant therapy. It makes no significant contribution to the diagnosis or treatment of patients whose Protime is prolonged f or other reasons. INR results are increased when heparin l evels exceed 1.0 U/mL, which corresponds to an aPTT >125 seconds if the patient is on UFH. Nadir Cohen MD HEMATOLOGY Performing Organization Address City/State/ZIP Code Phon e Number [facility] [address] [place] [address] (ABNORMAL) CBC W PLT NO DIFF (10/05/2022 8:25 AM [facility]) [facility] Method Time Signature WHITE BLOOD 7.1 4.5 - 11.0 10/05/2022 [email or web address] COUNT thou/cu mm 9:43 AM [facility] RED BLOOD COUNT 5.02 4.00 - 10/05/2022 [facility] 5.20 9:43 AM [facility] mil/cu mm LABORATORY HEMOGLOBIN 15.5 12.0 - 10/05/2022 [place] 16.0 g/dL 9:43 AM [facility] HEMATOCRIT 49.1 33.0 - 10/05/2022 [facility] 51.0 % 9:43 AM [facility] MCV 98 80 - 100 10/05/2022 [facility] fL 9:43 AM [facility] MCH 30.9 26.0 - 10/05/2022 [place] 34.0 pg 9:43 AM [facility] MCHC 31.6 (L) 32.0 - 10/05/2022 [place] 36.0 g/dL 9:43 AM [facility] RDW 13.2 11.5 - 10/05/2022 [place] 15.5 % 9:43 AM [facility] PLATELET COUNT 225 140 - 440 10/05/2022 [facility] thou/cu mm 9:43 AM [facility] MPV 9.9 6.5 - 11.0 10/05/2022 [facility] fL 9:43 AM [facility] Specimen Anatomical Collection Method / Collection Time Recei kam Time (Source) Location / Volume Laterality Blood BLOOD SPECIMEN / Venipuncture / 10/05/2022 8:25 2021 9:22 Unknown Unknown AM MONITOR TECHNICIAN AM MONITOR TECHNICIAN Nadine Quesada Corey BOILERMAKER PIPE FITTER HEMATOLOGY Performing Organization Address City/State/ZIP Code Phon e Number [facility] 200 [facility] [place] [address] (ABNORMAL) BASIC METABOLIC PANEL (10/05/2022 8:25 AM [facility]) Analysis Performed At Patho logist Time Signature SODIUM 144 135 - 145 10/05/2022 [place] mmol/L 10:23 AM [facility] POTASSIUM 3.7 3.5 - 5.0 10/05/2022 [place] mmol/L 10:23 AM [facility] CHLORIDE 96 (L) 98 - 110 10/05/2022 [place] mmol/L 10:23 AM [facility] CO2,TOTAL 41 (HH) 21 - 31 10/05/2022 [place] mmol/L 10:23 AM [facility] ANION GAP 7 5 - 18 10/05/2022 [place] 10:23 AM [facility] GLUCOSE 115 (H) 65 - 100 10/05/2022 [place] mg/dL 10:23 AM [facility] CALCIUM 9.5 8.5 - 10.5 10/05/2022 [place] mg/dL 10:23 AM [facility] BUN 20 8 - 25 10/05/2022 [place] mg/dL 10:23 AM [facility] CREATININE 0.69 0.57 - 10/05/2022 [place] 1.11 mg/dL 10:23 AM [facility] BUN/CREAT RATIO 29 (H) 10 - 20 10/05/2022 [place] 10:23 AM [facility] eGFR >90 >90 10/05/2022 [place] mL/min/1.7 10:23 AM [facility] 3m2 [facility] Comment: As of 2022, [...] 10/05/2022 8:25 2021 9:22 Unknown Unknown AM MONITOR TECHNICIAN AM MONITOR TECHNICIAN Nadine Nicole BOILERMAKER PIPE FITTER CHEMISTRY Performing Organization Address City/State/ZIP Code Phon e Number [facility] [address] [place] [address] ECHO COMPLETE WO CONTRAST (09/16/2022 1:36 PM [...] ECHOCARDIOGRAM LUCILA QUINTANA ? Accessi on#: ?? [id number] : ?1950 72 years Study Date: ?? 09/16/2022 12:45:11 PM Gender: F ?BP: ? 119/81 mmHg Height: 142.00 cm ?BSA: ?1.68 m? ?? Weight: 80.00 kg ? Tech: ? NWA ? Referring MD: MONI MESSINA Site: ? [facility] Reading Location: [facility] Procedure: 2D, [...] . This study [facility] CC: [facility], Med/ Surg - IP [facility]. ??Final ?? Procedure Note Ed Torres MD - 09/16/2022 ECHOCARDIOGRAM LUCILA QUINTANA : 1950 72 years Study Date: 09/16 12:45:11 PM Gender: F BP: 119/81 mmHg Height: 142.00 cm BSA: 1.68 m? ?? Weight: 80.00 kg Tech: NWA Referring MD: MONI MESSINA Site: [facility] Reading Location: [facility] Procedure: 2D, Color Doppler and Spectra [...] . This study was interpreted by an [facility] red[facility] facility. CC: [facility], [facility]/ Surg - IP [facility]. Final Moni Messina MD ECHO ORD SCAN CORRESP-IMAGING (08/05/2022 1:28 PM CDT) Narrative This result has an attachment that is no t available. Scanner OTHER from Last 3 Months Insurance Payer Benefit Plan / Subscriber ID Effective Dates Phone Addre ss Type Group MEDICARE PART MEDICARE PART [id number] [place] A - [place] USE A HB ONLY t [address] [place] [address] MEDICARE PART MEDICARE PART [id number] 2013-[place] B - [place] USE B HB ONLY t [address] [place] [address] BLUE CROSS BLUE CROSS [id number] 2021-Presen [address] [address] [place] [address] [place], [place] ONLY [id number] MEDICARE PPS MEDICARE [id number] 2013-Presen PO KISHAN X 2019 [address]PS [id number] [place] [address] BLUE CROSS MR [place] [id number] 2021-Hernando [address] [address] [place] [address] [facility] [place] [id number] (Work) [id number] Layla Quintana Personal/Family Self 1950 [address] [place] [address] Advance Directives Latest Code Status on File [...] 11:48 AM 02/21/2019 5:24 PM Care Teams Churn Operator Relationship Specialty Start Date End Date Yoselyn Dewitt MD PCP - General Family Practice 02/21/191999 [place] [address] Ismael [facility] 09/09/[address] [place] [address]
== END 2022-10-13 10:11 | disposition home or self-care (01) ==
LOC: RAD 10:10
PROVIDERS: PCP Family Medicine; Visit Provider Nurse Practitioner Adult Health
DX: R13.10 Dysphagia, unspecified (principal)
CPT/HCPCS: 74230; 92611

== ENCOUNTER 2022-10-27 16:27 | Outpatient (CLI) | payer MEDICARE, BC, SELFPAY | END 2022-10-27 16:28 | disposition home or self-care (01) | LOC: AMB 11-09 09:24 | PROVIDERS: PCP Family Medicine; Visit Provider Family Medicine | DX: R06.09 Other forms of dyspnea (principal) | CPT/HCPCS: A0998 ==

== ENCOUNTER 2022-11-11 15:02 | Outpatient (CLI) | payer MEDICARE, BC, SELFPAY ==
[2022-11-11 17:32] LABS: Chloride* 94 mmol/L (96-114)
[2022-11-11 17:33] LABS: Potassium* 4.5 mmol/L (3.6-5.1); Sodium* 135 mmol/L (135-149)
[2022-11-11 17:35] LABS: Creatinine* 0.8 mg/dL (0.5-1.5); Estimated Glomerular Filt Rate 77 ml/min
[2022-11-11 17:36] LABS: Blood Urea Nitrogen* 38 mg/dL (7-30); Calcium* 9.1 mg/dL (8.4-10.6); Carbon Dioxide* 34 mmol/L (20-32); Glucose* 126 mg/dL (60-115)
[2022-11-11 17:53] LABS: Vitamin D 25 Hydroxy* 37 ng/mL (30-80)
== END 2022-11-11 15:03 | disposition home or self-care (01) ==
PROVIDERS: PCP Family Medicine; Visit Provider Family Medicine
DX: I48.91 Unspecified atrial fibrillation (principal); M81.0 Age-related osteoporosis without current pathological fracture; R53.83 Other fatigue
CPT/HCPCS: 80048; 82306

== ENCOUNTER 2023-01-06 02:43 | Outpatient (CLI) | payer MEDICARE, BC, SELFPAY | END 2023-01-06 02:44 | disposition home or self-care (01) | LOC: AMB 21:57 | PROVIDERS: PCP Family Medicine; Visit Provider Family Medicine | DX: R41.82 Altered mental status, unspecified (principal); R29.810 Facial weakness; R47.81 Slurred speech | CPT/HCPCS: A0425; A0427 ==

== ENCOUNTER 2023-01-06 03:18 | Emergency (ER) | payer MEDICARE, BC, SELFPAY ==
[2023-01-06] VITALS (15 sets, daily range): BP systolic 120–157; BP diastolic 78–109; PULSE 71–88; RESP 20; TEMP 36.8; O2SAT 90–97; BMI 29.1
--- NOTE | 2023-01-06 03:34 | CRLHL7_ITS ---
For Patients: As a result of the Century Cures Act, medical imaging exams and procedure reports are released immediately into your electronic medical record. You may view this report before your referring provider. If you have questions, please contact your health care provider. INDICATION: Fall, right-sided weakness. TECHNIQUE: CT head without contrast. COMPARISON: 09/19/2022. FINDINGS: Evaluation is limited by motion artifact. CSF spaces: Within normal limits for age. Brain parenchyma: Mild generalized cerebral volume loss. The strange-white differentiation is normal. No sign of mass, hemorrhage, or midline shift. Atherosclerotic calcifications of the cavernous carotids and carotid siphons. Skull base and calvarium: The visualized paranasal sinuses and mastoid air cells demonstrate no acute or significant findings. The visualized orbits are grossly unremarkable. No skull fractures. IMPRESSION: Motion degraded examination. Otherwise no acute intracranial hemorrhage or mass effect. Please note that all CT scans at this facility use dose modulation, iterative reconstruction, and/or weight-based dosing when appropriate to reduce radiation dose to as low as reasonably achievable. Dictated by Amilcar Sampson MD @ 01/06/2023 3:48:38 AM (Electronically Signed)
--- NOTE | 2023-01-06 03:34 | CRLHL7_ITS ---
For Patients: As a result of the Cures Act, medical imaging exams and procedure reports are released immediately into your electronic medical record. You may view this report before your referring provider. If you have questions, please contact your health care provider. INDICATION: Trauma, fall. TECHNIQUE: CT cervical spine without contrast. COMPARISON: None. FINDINGS: Vertebrae: Alignment is normal. There are no fractures or suspicious bony lesions. Discs and facet joints: There are diffuse degenerative changes in the disc spaces and facet joints. Extraspinal findings: Left thyroid lobe nodule measuring 1.9 cm. IMPRESSION: 1. No acute fracture or traumatic subluxation of the cervical spine. 2. Multilevel degenerative spondylosis. 3. Left thyroid lobe nodule measuring 1.9 cm. Recommend nonemergent dedicated thyroid ultrasound for further evaluation. Please note that all CT scans at this facility use dose modulation, iterative reconstruction, and/or weight-based dosing when appropriate to reduce radiation dose to as low as reasonably achievable. Dictated by Amilcar Sampson MD @ 01/06/2023 3:55:37 AM (Electronically Signed)
--- NOTE | 2023-01-06 03:42 | ED_ITS ---
HPI - Neuro Symptoms/Deficit General Chief Complaint: Neuro Symptoms/Altered Deficit Stated Complaint: Fall Time Seen by Provider: 01/06/23 03:29 Source: patient and EMS Mode of arrival: EMS Limitations: physical limitation History of Present Illness HPI Narrative: 72-year-old female with notable history of AFib, anticoagulated on Coumadin presents to the emergency department by EMS, found on floor by at about 230. EMS on scene about 2:45 a.m.. suspects that patient had been on the floor since about 215 but no truly appropriate assessment since 9:00 p.m. which is not unusual for them. He did not hear a fall. I have cared for him as well and he has significant dementia. EMS tried to clarify timeline multiple times with him and was unable to do so. I attempt to clarify timeline with lulu wise and she does not know her last known well time but she does follow my questioning clearly. EMS noting upon arrival that she was ? weight? on the floor, unable to get herself up. She was lying on her right side with no obvious evidence of bruising, bleeding or obvious trauma. She would not move her right side for them in her gaze seemed off. Her speech is slurred and she was able to verbalize to them that she was having difficulty with word finding. They did not administer any treatments prior to ED arrival. She denies any intoxication. She does have a history of heart failure, chronic hypoxia. ED notes and hospitalizations from the past few months are reviewed quickly. She denies chest pain, fevers or recent illness. Past medical history reviewed, notable for chronic respiratory failure, frailty, AFib, heart failure, obesity. Medications accurate per EMR, does self administer. Allergies reviewed, unchanged. Socially, she is a nonsmoker, denies alcohol intoxication, no pertinent travel. Does have a designated caregiver named Natalie who was able to speak to already [facility]. Related Data Home Medications Medication Instructions Recorded Confirmed alendronate 70 mg tablet 70 mg PO QWEEK 01/06/23 01/06/23 Previous Rx's Medication Instructions Recorded calcitonin (salmon) 200 1 spray intranasal (ALT) DAILY 12/03/22 unit/actuation nasal spray #3.7 mL calcium carbonate 500 mg calcium 1,000 mg PO DAILY #180 tabs 12/03/22 (1,250 mg) tablet cholecalciferol (vitamin D3) 50 2,000 unit PO DAILY #180 caps 12/03/22 mcg (2,000 unit) capsule digoxin 125 mcg (0.125 mg) tablet 125 mcg PO DAILY #90 tabs 12/03/22 diltiazem HCl 180 mg 360 mg PO DAILY #180 caps 12/03/22 capsule,extended release 24 hr (Cartia XT) lisinopril 40 mg tablet 40 mg PO DAILY #90 tabs 12/03/22 metoprolol succinate 100 mg 150 mg PO DAILY #135 tabs 12/03/22 tablet,extended release 24 hr potassium chloride 10 mEq 10 meq PO TIDWM #270 tabs 12/03/22 tablet,extended release(part/cryst) torsemide 20 mg tablet 60 mg PO BID #540 tabs 12/03/22 warfarin 5 mg tablet See Rx Instructions PO DAILY #102 12/03/22 tabs Allergies Allergy/AdvReac Type Severity Reaction Status Date / Time hydrocortisone Allergy Unknown Verified 01/06/23 04:17 hydrochlorothiazide AdvReac Intermediate hyponatremi Verified 01/06/23 04:17 a amlodipine AdvReac Mild Edema Verified 01/06/23 04:17 [facility] Medical History Acute on chronic combined systolic and diastolic heart failure, NYHA class 2 (04/2022) Acute on chronic right-sided heart failure Angioma of skin Atrial fibrillation with normal ventricular rate (03/2019) Calculus of bile duct (04/2022) Chronic heart failure with preserved ejection fraction Closed rib fracture (05/28/22) CO2 retention Compression fracture of thoracic vertebra, non-traumatic Daytime somnolence Fluid overload Health care directive on file History of acute congestive heart failure (2016) History of nuclear stress test Hypertension (01/04/07) Hyponatremia Hypoxia Long-term (current) use of anticoagulants, INR goal 2.0-3.0 Lumbar radiculopathy Mild cognitive impairment (2020) Physical deconditioning POLST (Physician Orders for Life-Sustaining Treatment) Right middle lobe pneumonia Systolic congestive heart failure Temporal headache Tubular adenoma of colon (2016) Surgical History History of bilateral cataract extraction History of cholecystectomy History of ear surgery History of hysterectomy for benign disease History of tonsillectomy Hx of appendectomy Status post endoscopic retrograde cholangiopancreatography (05/12/22) Family History Mother Brain aneurysm, Onset Age: 65 Father Coronary artery disease, Onset Age: 62 Brother Coronary artery disease, Onset Age: 64 Sister Colon cancer, Onset Age: 56 Social History Narrative: exercises regularly- 1-2/week: exercise bike, twisting , independent living [address] links, 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, no kids non-smoker rarely consumes alcohol Smoking Status: Never smoker Do you use any of these nicotine containing products: None How often do you have a drink containing alcohol: never AUDIT-C Alcohol total score: 0 Non-prescribed substance use: denies use service: No Exam Const: Vital Signs, click to edit/add: Vital Signs - 24 hr 01/06/23 03:29 01/06/23 04:01 01/06/23 03:48 Temperature 98.2 F Pulse Rate 80 Pulse Rate [Right Pulse Oximeter] 74 Respiratory Rate 20 Blood Pressure Blood Pressure [Le ft Upper Arm] 157/109 H Pulse Oximetry 96 97 97 Oxygen Delivery Me thod Room Air Nasal Cannula Nasal Cannula Oxygen Flow Rate 2 2 01/06/23 03:52 01/06/23 03:53 01/06/23 04:00 Temperature Pulse Rate 71 79 81 Pulse Rate [Right Pulse Oximeter] Respiratory Rate Blood Pressure 154/92 H Blood Pressure [Le ft Upper Arm] Pulse Oximetry 96 96 96 Oxygen Delivery Me thod Oxygen Flow Rate 01/06/23 04:02 01/06/23 04:13 01/06/23 04:20 Temperature Pulse Rate 88 86 Pulse Rate [Right Pulse Oximeter] Respiratory Rate Blood Pressure 148/97 H Blood Pressure [Le ft Upper Arm] Pulse Oximetry 97 94 Oxygen Delivery Me thod Oxygen Flow Rate 01/06/23 04:22 01/06/23 04:31 01/06/23 04:32 Temperature Pulse Rate 71 75 Pulse Rate [Right Pulse Oximeter] Respiratory Rate Blood Pressure 133/102 H 135/86 Blood Pressure [Le ft Upper Arm] Pulse Oximetry 96 95 Oxygen Delivery Me thod Oxygen Flow Rate 01/06/23 04:40 01/06/23 04:42 Temperature Pulse Rate 85 76 Pulse Rate [Right Pulse Oximeter] Respiratory Rate Blood Pressure 120/78 Blood Pressure [Le ft Upper Arm] Pulse Oximetry 95 90 Oxygen Delivery Me thod Oxygen Flow Rate Documenting provider has reviewed patient's vital signs: yes Common normals: alert Orientation/consciousness: Yes awake, Yes oriented to person and Yes oriented to place Other: awake, follows commands left side, right eye deviated to left, pupils equal. aware of difficulty with word finding and speech production problem. Initial and at bedtime is 21 but her GCS is 14. Her only point often GCS is because verbally her speech is a bit slurred with difficulty in word finding but she is not really considered confused. HENMT: Common normals: normocephalic Head and scalp: normocephalic Ot her: tongue deviates to right, right facial paralysis and droop Eye: Other: pupils small, equal. loss of right visual gaze and eye movement Neck & C-Spine: Common normals: full ROM and no lymphadenopathy Resp: Common normals: normal respiratory effort and no use of accessory muscles Effort & inspection: able to speak in complete sentences Cardio: Common normals: regular rate, regular rhythm, S1 normal heart sound, S2 normal heart sound, no murmurs and peripheral pulses 2+ throughout Rate: regular rate Rhythm: regular rhythm Heart sounds: S1 normal and S2 normal Peripheral pulses: pulses 2+ throughout GI: Common normals: Normal to inspection, nondistended, normoactive bowel sounds present, soft to palpation and no masses Palpation: soft Extremity: Common normals: normal capillary refill and no pedal edema (trace edema legs) Neuro: [place] Coma Scale: document GCS findings Emanuel coma scale eye opening: Spontaneous (4) Emanuel coma scale verbal response: Confused (4) Emanuel coma scale motor response: Obey commands (6) [place] coma scale total score: 14 Sensorium/orientation: awake, alert, oriented to person and oriented to place Other: speech slurred, difficulty word finding. right arm with minimal movement, cannot overcome gravity. right leg with minimal movement, cannot overcome gravity. right facial droop, right gaze deficit. Psych: Appearance: grossly normal Insight: fair Other: nods in understanding. Skin: Common normals: no rashes or lesions noted (no bruising or obvious trauma) General skin exam: no rashes or lesions noted (no bruising or obvious trauma) Course Vital Signs Vital signs: Initial Vital Signs Temperature 98.2 F 01/06/23 03:29 Temperature Source Temporal Artery Scan 01/06/23 03:29 Pulse Rate 74 01/06/23 03:29 Pulse Rhythm 01/06/23 03:29 Respiratory Rate 20 01/06/23 03:29 Blood Pressure 157/109 H 01/06/23 03:29 Blood Pressure Mean 125 01/06/23 03:29 Blood Pressure Position Supine 01/06/23 03:29 Pulse Oximetry 96 01/06/23 03:29 Oxygen Delivery Method 01/06/23 03:29 Vital Signs Temperature 98.2 F 01/06/23 03:29 Pulse Rate 74 01/06/23 03:29 Respiratory Rate 20 01/06/23 03:29 Blood Pressure 157/109 H 01/06/23 03:29 Pulse Oximetry 96 01/06/23 03:29 Oxygen Delivery Method 01/06/23 03:29 Temperature 98.2 F 01/06/23 03:29 Pulse Rate 76 01/06/23 04:42 Respiratory Rate 20 01/06/23 03:29 Blood Pressure 120/78 01/06/23 04:42 Pulse Oximetry 90 01/06/23 04:42 Oxygen Delivery Method 01/06/23 04:01 Oxygen Flow Rate 2 01/06/23 04:01 MDM - Neuro Symptoms/Deficit MDM Narrative Medical decision making narrative: Met patient in [place], noticed right gaze paralysis, right facial droop, not moving right side. Immediately to CT for CT scan of head and cervical spine. Patient can follow some commands and is attempting to ask appropriate questions it is clear that she is oriented to situation well. I quickly reviewed CT in the scanning room, no sign of acute bleed noted. As patient is being transferred back into exam room, immediately call [facility] for potential transfer. The let me know that they would call back within 5 minutes, I called them back at the 15 minute tamar, was able to speak with a neurologist at the 20 minute tamar. We agreed that her last known well time was 9:00 p.m., suspect it was likely later but cannot confirm. Does not recommend lytics and I agree. Requests CT angio of head and neck, if large thrombus, can call back in transfer for mechanical thrombectomy. Patient's [id number], Natalie had now ski did happen to call while I was waiting for [facility] call back and let me know the patient would be DNR/DNI but would accept transfer if appropriate. [facility] is not recommending transfer at this time since she is not a candidate for lytics. If her CT angio shows any signs of interventional need, call back for potential transfer. Initial NHS is 21 Update: Patient with no neurological change. CTA results now available de monstrating large vessel thrombus distal M1 proximal M2 on left side. It is thought that she would be a candidate for thrombectomy. Discussed with neurology at [facility] again, Dr. schwartz. Recommended transfer for attempt at thrombectomy. Patient will be an ED to ED transfer, EMS has been waiting in the ED for transfer this entire time. Note that delay in transfer was based on additional testing requested by Neurology, initial decision to seek transfer was less than 5 minutes from arrival. Slight delay in initial callback from Neurology by 15 minutes. Uncomplicated transfer, patient able to give verbal consent. Nursing team states that they will update caregiver. Medical Records Attestation: I reviewed the patient's medical records. Lab Data Attestation: I reviewed the patient's lab results. Labs: Lab Results 01/06/23 01/06/23 01/06/23 Range/Units 03:35 03:35 03:35 WBC 8.12 (4.50-11.00) K/uL RBC 4.77 (4.00-5.20) m/uL Hgb 15.0 (12.0-16.0) gm/dL Hct 44.5 (33.0-51.0) % MCV 93 (80-100) fL MCH 31 (26-34) pg MCHC 34 (32-36) gm/dL RDW Coeff of [place] 13.0 (11.5-15.5) % Plt Count 221 (140-440) K/uL Neut % (Auto) 74.2 H (42.0-72.0) % Lymph % (Auto) 14.0 L (20-44) % [place] % (Auto) 8.7 (0.0-11.0) % Eos % (Auto) 2.1 (0.0-7.0) % Baso % (Auto) 0.6 (0.0-3.0) % Neut # (Auto) 6.00 (1.7-7.0) K/uL Lymph # (Auto) 1.10 (0.90-2.90) K/uL [place] # (Auto) 0.70 (0.00-0.90) K/UL Eos # (Auto) 0.17 (0.00-0.50) K/uL Baso # (Auto) 0.05 (0.00-0.30) K/uL INR (0.91-1.10) Sodium 129 L (135-149) mmol/L Potassium 4.1 (3.6-5.1) mmol/L Chloride 91 L (96-114) mmol/L Carbon Dioxide 33 H (20-32) mmol/L BUN 25 (7-30) mg/dL Creatinine 0.6 (0.5-1.5) mg/dL Estimated Creat Clear 44.41 Estimated GFR 94 ml/min Glucose 144 H (60-115) mg/dL Calcium 8.4 (8.4-10.6) mg/dL Troponin I < 0.01 L (0.01-0.04) ng/mL Ethyl Alcohol < 0.01 L (0.01-0.03) % SARS-CoV-2 (PCR) Negative SARS-CoV-2 (Negative) 01/06/23 Range/Units 03:50 WBC (4.50-11.00) K/uL RBC (4.00-5.20) m/uL Hgb (12.0-16.0) gm/dL Hct (33.0-51.0) % MCV (80-100) fL MCH (26-34) pg MCHC (32-36) gm/dL RDW Coeff of [place] (11.5-15.5) % Plt Count (140-440) K/uL Neut % (Auto) (42.0-72.0) % Lymph % (Auto) (20-44) % [place] % (Auto) (0.0-11.0) % Eos % (Auto) (0.0-7.0) % Baso % (Auto) (0.0-3.0) % Neut # (Auto) (1.7-7.0) K/uL Lymph # (Auto) (0.90-2.90) K/uL [place] # (Auto) (0.00-0.90) K/UL Eos # (Auto) (0.00-0.50) K/uL Baso # (Auto) (0.00-0.30) K/uL INR 1.71 H (0.91-1.10) Sodium (135-149) mmol/L Potassium (3.6-5.1) mmol/L Chloride (96-114) mmol/L Carbon Dioxide (20-32) mmol/L BUN (7-30) mg/dL Creatinine (0.5-1.5) mg/dL Estimated Creat Clear Estimated GFR ml/min Glucose (60-115) mg/dL Calcium (8.4-10.6) mg/dL Troponin I (0.01-0.04) ng/mL Ethyl Alcohol (0.01-0.03) % SARS-CoV-2 (PCR) (Negative) Imaging Data CT scan - head: Attestation: I have reviewed the pertinent imaging results. My impression: No acute bleed, lots of degenerative changes and questionable old left occipital stroke Radiologist's impression: IMPRESSION: Motion degraded examination. Otherwise no acute intracranial hemorrhage or mass effect. CT- Other: Attestation: I have reviewed the pertinent imaging results. My impression: No cervical fracture Radiologist's impression: IMPRESSION: 1. No acute fracture or traumatic subluxation of the cervical spine. 2. Multilevel degenerative spondylosis. 3. Left thyroid lobe nodule measuring 1.9 cm. Recommend nonemergent dedicated thyroid ultrasound for further evaluation. CT angio head and neck: Attestation: I have reviewed the pertinent imaging results. Radiologist's impression: Per Radiology, large vessel thrombus distal M1, proximal M2 left. May be a candidate for thrombectomy. Critical Care Time Critical Care Time Critical Care Time: Yes Attestation: The patient required my highest level preparedness to intervene emergently and I personally spent this critical care time directly and personally managing the patient. This critical care time included: Obtaining a history; Examining the patient; Pulse oximetry; Ordering and reviewing of studies; Arranging urgent treatment with development of a management plan; Evaluation of patients response to treatment; Frequent reassessment discussions with other providers. This critical care time was performed to assess and manage the high probability of imminent life-threatening deterioration that could result in multiorgan failure. It was exclusive of separate billable procedures and treating other patients and teaching time. Total Critical Care Time in Minutes: 47 Discharge Plan Discharge Clinical Impression: Acute ischemic cerebrovascular accident (CVA) involving left middle cerebral artery territory, Aphasia complicating stroke Prescriptions: No Action alendronate 70 mg tablet 70 mg PO QWEEK Rx Instructions: PT TAKES ON MONDAYS warfarin 5 mg tablet See Rx Instructions PO DAILY Qty: 102 0RF Protocol: Dose Management Condition: Tuesday Dose/Route: 5 mg Instruction: 1 x 5 mg tablet Condition: Tuesday Dose/Route: 7.5 mg Instruction: 1.5 x 5 mg tablets Condition: Tuesday Dose/Route: 5 mg Instruction: 1 x 5 mg tablet Condition: Tuesday Dose/Route: 7.5 mg Instruction: 1.5 x 5 mg tablets Condition: Dose/Route: 5 mg Instruction: 1 x 5 mg tablet Condition: Tuesday Dose/Route: 7.5 mg Instruction: 1.5 x 5 mg tablets Condition: Tuesday Dose/Route: 5 mg Instruction: 1 x 5 mg tablet Protocol Text: Adjustment Start Date: Tuesday12/07/22 INR Value: 1.9 INR Date: 12/03/22 Recheck Date: 01/06/23 Rx Instructions: 5 mg - 7.5 mg orally daily; take 7.5 mg on Tuesday/Tuesday/Tuesday and 5 mg all other days. metoprolol succinate 100 mg tablet extended release 24 hr 150 mg PO DAILY Qty: 135 1RF potassium chloride 10 mEq tablet,ER particles/crystals 10 meq PO TIDWM Qty: 270 0RF lisinopril 40 mg tablet 40 mg PO DAILY Qty: 90 0RF diltiazem HCl [Cartia XT] 180 mg capsule,extended release 24hr 360 mg PO DAILY Qty: 180 0RF calcium carbonate 500 mg calcium (1,250 mg) tablet 1,000 mg PO DAILY Qty: 180 0RF cholecalciferol (vitamin D3) 50 mcg (2,000 unit) capsule 2,000 unit PO DAILY Qty: 180 0RF digoxin 125 mcg (0.125 mg) tablet 125 mcg PO DAILY Qty: 90 4RF calcitonin (salmon) 200 unit/actuation spray,non-aerosol 1 spray intranasal (ALT) DAILY Qty: 3.7 6RF torsemide 20 mg tablet 60 mg PO BID Qty: 540 0RF Follow Up/Referrals: Yoselyn Dewitt MD [Primary Care Provider] -
[2023-01-06 03:44] LABS: Basophils Absolute Auto 0.05 K/uL (0.00-0.30); Basophils Percent Auto 0.6 % (0.0-3.0); Eosinophils Absolute Auto 0.17 K/uL (0.00-0.50); Eosinophils Percent Auto 2.1 % (0.0-7.0); Hematocrit 44.5 % (33.0-51.0); Immature Granulocytes Abs Auto 0.03 K/uL (0.00-0.30); Immature Granulocytes Pct Auto 0.4 %; Mean Corpuscular HGB Conc 34 gm/dL (32-36); Mean Corpuscular Hemoglobin 31 pg (26-34); Mean Corpuscular Volume 93 fL (80-100); Monocytes Percent Auto 8.7 % (0.0-11.0); Neutrophils Percent Auto 74.2 % (42.0-72.0); Platelet Count* 221 K/uL (140-440); Red Blood Count 4.77 m/uL (4.00-5.20); White Blood Count* 8.12 K/uL (4.50-11.00)
[2023-01-06 03:45] LABS: Slide Review Reflex No
--- NOTE | 2023-01-06 03:52 | CRLHL7_ITS ---
For Patients: As a result of the Century Cures Act, medical imaging exams and procedure reports are released immediately into your electronic medical record. You may view this report before your referring provider. If you have questions, please contact your health care provider. DATE: 01/06/2023. CLINICAL HISTORY: Left MCA syndrome. TECHNIQUE: Standard helical CT image acquisition through the head and neck following the administration of intravenous contrast was performed. Multiplanar reconstructed images performed on a separate workstation. COMPARISON: None available. FINDINGS: There is occlusion of the mid M1 segment of the left middle cerebral artery with an intermediate degree of leptomeningeal collaterals to the more distal left middle cerebral artery branches. The intracranial vasculature is otherwise patent without flow-limiting luminal stenoses, noting calcified plaque throughout the carotid siphons. The origins of the great vessels are patent. The common carotid arteries are patent. The proximal ICAs are patent without luminal stenoses by NASCET criteria. The more distal cervical segments of the ICAs are patent. The origins and cervical segments of the vertebral arteries are patent. IMPRESSION: 1. Occlusion of the mid M1 segment of the left MCA. 2. Patent cervical arterial vasculature without hemodynamically significant luminal stenosis. Please note that all CT scans at this facility use dose modulation, iterative reconstruction, and/or weight-based dosing when appropriate to reduce radiation dose to as low as reasonably achievable. Dictated by Preet Kendrick MD @ 01/06/2023 7:51:38 AM (Electronically Signed)
[2023-01-06 03:53] LABS: Chloride* 91 mmol/L (96-114); Potassium* 4.1 mmol/L (3.6-5.1); Sodium* 129 mmol/L (135-149)
[2023-01-06 03:56] LABS: Blood Urea Nitrogen* 25 mg/dL (7-30); Carbon Dioxide* 33 mmol/L (20-32); Creatinine* 0.6 mg/dL (0.5-1.5); Est. Creatinine Clearance* 44.41; Estimated Glomerular Filt Rate 94 ml/min
[2023-01-06 03:57] LABS: Calcium* 8.4 mg/dL (8.4-10.6); Glucose* 144 mg/dL (60-115)
[2023-01-06 03:58] LABS: Ethanol* < 0.01 % (0.01-0.03)
[2023-01-06 04:10] LABS: Troponin I* < 0.01 ng/mL (0.01-0.04)
[2023-01-06 04:18] LABS: INR 1.71 (0.91-1.10)
--- NOTE | 2023-01-06 04:20 | ED.NURSE ---
Patients family updated.
--- NOTE | 2023-01-06 04:53 | ED.NURSE ---
0445- Jj SMALLWOOD got acceptace from [facility]. 0450- EMS Given Report
[2023-01-06 04:54] LABS: SARS PCR* Negative SARS-CoV-2 (Negative)
--- NOTE | 2023-01-06 05:25 | ED.NURSE ---
Report given to [facility] tyre builder Katie [id number] and Milagros F[employer]ITURE [facility]ER [id number] at [facility]
== END 2023-01-06 05:05 | disposition home or self-care (01) ==
PROVIDERS: Emergency Provider Family Medicine; PCP Family Medicine
DX: I63.312 Cerebral infarction due to thrombosis of left middle cerebral artery (principal); R47.01 Aphasia
CPT/HCPCS: 36415; 70450; 70496; 70498; 72125; 80048; 82077; 84484; 85025; 85610; 87635; 93005; 94761; 99284; 99291; G0390; Q9967

== ENCOUNTER 2023-01-06 04:46 | Outpatient (CLI) | payer MEDICARE, BC, SELFPAY | END 2023-01-06 04:47 | disposition home or self-care (01) | LOC: AMB 22:00 | PROVIDERS: PCP Family Medicine; Visit Provider Family Medicine | DX: I63.9 Cerebral infarction, unspecified (principal) | CPT/HCPCS: A0425; A0426; A0428 ==

== ENCOUNTER 2023-02-03 10:47 | Outpatient (REF) | payer SELFPAY ==
--- NOTE | 2023-02-03 11:15 | CRLHL7_ITS ---
For Patients: As a result of the Century Cures Act, medical imaging exams and procedure reports are released immediately into your electronic medical record. You may view this report before your referring provider. If you have questions, please contact your health care provider. INDICATION: Dysphagia TECHNIQUE: Modified barium swallow. Fluoroscopic time 56 seconds. FINDINGS/IMPRESSION: Mild laryngeal penetration occurred with thin barium without aspiration. No obstruction. Mild spillage into the vallecula. Normal movement of the epiglottis. Dictated by Ed Luong MD @ 02/03/2023 11:32:22 AM (Electronically Signed)
== END 2023-02-03 10:48 | disposition home or self-care (01) ==
LOC: RAD 10:47
PROVIDERS: PCP Family Medicine; Visit Provider Nurse Practitioner Adult Health
DX: R13.10 Dysphagia, unspecified (principal)
CPT/HCPCS: 74230; 92611

== ENCOUNTER 2023-02-09 11:21 | Outpatient (CLI) | payer MEDICARE, BC, SELFPAY | END 2023-02-09 11:22 | disposition home or self-care (01) | PROVIDERS: PCP Family Medicine; Visit Provider Family Medicine | DX: I50.32 Chronic diastolic (congestive) heart failure (principal); H61.21 Impacted cerumen, right ear | CPT/HCPCS: 80048 ==

== ENCOUNTER 2023-06-14 16:45 | Outpatient (CLI) | payer MEDICARE, BC, SELFPAY | END 2023-06-14 16:46 | disposition home or self-care (01) | LOC: AMB 06-17 19:59 | PROVIDERS: PCP Family Medicine; Visit Provider Family Medicine | DX: S79.911A Unspecified injury of right hip, initial encounter (principal); S49.91XA Unspecified injury of right shoulder and upper arm, initial encounter; W18.30XA Fall on same level, unspecified, initial encounter; Y92.009 Unspecified place in unspecified non-institutional (private) residence as the place of occurrence of the external cause | CPT/HCPCS: A0425; A0427 ==

== ENCOUNTER 2023-06-14 17:13 | Emergency (ER) | payer MEDICARE, BC, SELFPAY ==
[2023-06-14] VITALS (40 sets, daily range): BP systolic 109–180; BP diastolic 61–139; PULSE 91–198; RESP 20; TEMP 36.9; O2SAT 73–97; BMI 30.9
--- NOTE | 2023-06-14 | CRLHL7_ITS ---
For Patients: As a result of the Cures Act, medical imaging exams and procedure reports are released immediately into your electronic medical record. You may view this report before your referring provider. If you have questions, please contact your health care provider. INDICATION: Hip fracture, preop TECHNIQUE: Chest 1 view COMPARISON: 10/09/2022 FINDINGS: Cardiac silhouette enlarged. Aortic tortuosity. Severe degenerative changes both shoulders. Chronic fibrotic changes throughout the lungs. No pleural effusion. IMPRESSION: Chronic fibrotic changes, likely related to chronic CHF. No acute disease. Dictated by Ed Luong MD @ 06/14/2023 7:20:24 PM (Electronically Signed)
--- NOTE | 2023-06-14 17:20 | CRLHL7_ITS ---
For Patients: As a result of the Cures Act, medical imaging exams and procedure reports are released immediately into your electronic medical record. You may view this report before your referring provider. If you have questions, please contact your health care provider. Indication: Fall, pain Technique: AP pelvis and two views right hip, three views total Comparison: None Findings: Displaced fracture deformity of the right femoral neck with involvement of the greater trochanter. Rotational deformity is present as well. Impression: Displaced right femoral neck fracture with rotation. Consider CT prior to surgery for further definition of the fracture, if necessary. Dictated by Ed Luong MD @ 06/14/2023 7:19:21 PM (Electronically Signed)
--- NOTE | 2023-06-14 17:20 | CRLHL7_ITS ---
For Patients: As a result of the Cures Act, medical imaging exams and procedure reports are released immediately into your electronic medical record. You may view this report before your referring provider. If you have questions, please contact your health care provider. INDICATION: Fall. TECHNIQUE: CT cervical spine without contrast. Permanently recorded images are archived. COMPARISON: Cervical spine CT 01/06/2022. FINDINGS: Vertebrae: Straightening of the cervical lordosis. There are no fractures or suspicious bony lesions. Discs and facet joints: There are moderate multilevel degenerative disc changes, most pronounced at C4-5, C5-6 and C6-7. There are [id number] multilevel degenerative changes in the facets. Extraspinal findings: Grossly similar-appearing 1.9 cm left thyroid lobe nodule. IMPRESSION: 1. No sign of acute injury. 2. Moderate multilevel degenerative spondylosis. 3. Grossly similar-appearing 1.9 cm left thyroid lobe nodule. Recommend routine thyroid ultrasound for further evaluation, if not previously performed. Please note that all CT scans at this facility use dose modulation, iterative reconstruction, and/or weight-based dosing when appropriate to reduce radiation dose to as low as reasonably achievable. Dictated by Jevon Hendrix MD @ 06/14/2023 7:29:40 PM (Electronically Signed)
--- NOTE | 2023-06-14 17:20 | CRLHL7_ITS ---
For Patients: As a result of the Century Cures Act, medical imaging exams and procedure reports are released immediately into your electronic medical record. You may view this report before your referring provider. If you have questions, please contact your health care provider. INDICATION: Fall on blood thinners. TECHNIQUE: CT head without contrast. Permanently recorded images are archived. COMPARISON: Head CT 01/06/2023. FINDINGS: CSF spaces: Within normal limits for age. Brain parenchyma and extra-axial spaces: Mild global brain parenchymal volume loss. Interval development of a thin band of hypoattenuation in the region of the left putamen. No surrounding mass effect or edema. The strange-white differentiation is otherwise maintained. No sign of mass, hemorrhage, or midline shift. No extra-axial fluid collection. Skull base and calvarium: The visualized paranasal sinuses demonstrate no acute or significant findings. The mastoid air cells are clear. The visualized orbits are grossly unremarkable. No skull fractures. Atherosclerotic calcification of the bilateral carotid siphons. IMPRESSION: No evidence of an acute intracranial hemorrhage or mass effect. Thin band of hypoattenuation in the region of the left putamen, concerning for infarct, likely chronic, though new compared to prior exam. Recommend MRI for further evaluation. Please note that all CT scans at this facility use dose modulation, iterative reconstruction, and/or weight-based dosing when appropriate to reduce radiation dose to as low as reasonably achievable. Dictated by Jevon Hendrix MD @ 06/14/2023 7:24:57 PM (Electronically Signed)
[2023-06-14] MEDS: MORPHINE 4 MG/ML INJ IVP (17:34)
--- NOTE | 2023-06-14 17:48 | ED_ITS ---
HPI - General Adult General Date Seen: 06/14/23 Chief complaint: Fall/Minor Trauma Stated complaint: Fall Time Seen by Provider: 06/14/23 17:20 Source: patient Mode of arrival: EMS Limitations: no limitations History of Present Illness HPI narrative: Patient is a 73-year-old female presenting from assisted living by EMS for a fall. Patient has a history of cognitive impairment, CVA, AFib on rivaroxaban, CHF, hypertension. Patient states she was getting out of her chair after playing cards when she tripped and fell landing on her right hip. She is not having large amount of right hip pain and EMS was called. When they arrived she was given fentanyl for her pain. She is unable to move the right leg due to the pain in her hip. She also states she hit her head but denies a headache. Denies chest pain, shortness of breath, weakness, numbness, vision changes, abdominal pain, neck pain, new back pain. She is wearing a back brace from a previous thoracic vertebrae compression fracture. Related Data Home Medications Medication Instructions Recorded Confirmed torsemide 20 mg tablet 60 mg PO QAM 02/09/23 06/14/23 trazodone 50 mg tablet 25 mg PO QHS PRN 02/09/23 06/14/23 Previous Rx's Medication Instructions Recorded calcium carbonate 500 mg calcium 1,000 mg (2 x 500 mg calcium 12/03/22 (1,250 mg) tablet (1,250 mg)) PO DAILY #180 tabs cholecalciferol (vitamin D3) 50 2,000 unit PO DAILY #180 caps 12/03/22 mcg (2,000 unit) capsule digoxin 125 mcg (0.125 mg) tablet 125 mcg PO DAILY #90 tabs 12/03/22 metoprolol succinate 100 mg 150 mg (1.5 x 100 mg) PO DAILY 12/03/22 tablet,extended release 24 hr #135 tabs potassium chloride 10 mEq 10 meq PO TIDWM #270 tabs 12/03/22 tablet,extended release(part/cryst) rivaroxaban 20 mg tablet 20 mg PO QDAY #90 tabs 02/28/23 alendronate 70 mg tablet 70 mg PO QWEEK #12 tabs 05/30/23 diltiazem HCl 180 mg 360 mg (2 x 180 mg) PO DAILY #180 05/30/23 capsule,extended release 24 hr caps (Cartia XT) lisinopril 40 mg tablet 40 mg PO DAILY #90 tabs 05/30/23 Allergies Allergy/AdvReac Type Severity Reaction Status Date / Time hydrocortisone Allergy Unknown Verified 03/16/23 13:50 hydrochlorothiazide AdvReac Intermediate hyponatremi Verified 03/16/23 13:50 a amlodipine AdvReac Mild Edema Verified 03/16/23 13:50 Review of Systems Status of ROS: Reports: 10 or more systems reviewed and unremarkable except as noted in History and below [facility] Medical History (Updated 06/14/23 @ 20:53 by Thierno Quevedo DO) Cognitive impairment (~2020) ?R41.89 - Other symptoms and signs involving cognitive functions and awareness (ICD-10) Sensorineural hearing loss (SNHL) of both ears ?H90.3 - Sensorineural hearing loss, bilateral (ICD-10) Health care directive on file ?Z78.9 - Other specified health status (ICD-10) POLST (Physician Orders for Life-Sustaining Treatment) ?Z78.9 - Other specified health status (ICD-10) Daytime somnolence ?R40.0 - Somnolence (ICD-10) Physical deconditioning ?R53.81 - Other malaise (ICD-10) Compression fracture of thoracic vertebra, non-traumatic (05/28/22) ?M48.54XA - Collapsed vertebra, not elsewhere classified, thoracic region, initial encounter for fracture (ICD-10) Hyponatremia ?E87.1 - Hypo-osmolality and hyponatremia (ICD-10) History of nuclear stress test ?Z92.89 - Personal history of other medical treatment (ICD-10) Long-term (current) use of anticoagulants, INR goal 2.0-3.0 ?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 (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-10) Hypertension (01/04/07) ?I10 - Essential (primary) hypertension (ICD-10) Constipation ?K59.00 - Constipation, unspecified (ICD-10) Chronic heart failure with preserved ejection fraction ?I50.32 - Chronic diastolic (congestive) heart failure (ICD-10) Calculus of bile duct (04/2022) ?K80.50 - Calculus of bile duct without cholangitis or cholecystitis without obstruction (ICD-10) Atrial fibrillation with normal ventricular rate (03/2019) ?I48.91 - Unspecified atrial fibrillation (ICD-10) Surgical History (Updated 03/14/23 @ 11:45 by Gita Mcdonough) History of recent neurosurgical procedure (12/2022) ?Z98.890 - Other specified postprocedural states (ICD-10) Status post endoscopic retrograde cholangiopancreatography (05/12/22) ?Z98.890 - Other specified postprocedural states (ICD-10) Hx of appendectomy ?Z90.49 - Acquired absence of other specified parts of digestive tract (ICD- 10) History of ear surgery ?Z98.890 - Other specified postprocedural states (ICD-10) History of tonsillectomy ?Z90.89 - Acquired absence of other organs (ICD-10) History of hysterectomy for benign disease ?Z90.710 - Acquired absence of both cervix and uterus (ICD-10) History of cholecystectomy ?Z90.49 - Acquired absence of other specified parts of digestive tract (ICD- 10) History of bilateral cataract extraction ?Z98.41 - Cataract extraction status, right eye (ICD-10) ?Z98.42 - Cataract extraction status, left eye (ICD-10) Family History Mother Brain aneurysm, Onset Age: 65 Father Coronary artery disease, Onset Age: 62 Brother Coronary artery disease, Onset Age: 64 Sister Colon cancer, Onset Age: 56 Social History Narrative: exercises regularly- 1-2/week: exercise bike, twisting , independent living 3 links, 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 Moist mucous membranes. Neck: Symmetric, trachea midline, No thyromegaly. CVS: RRR, No murmurs or gallops. Peripheral pulses 2+ and equal in all extremities RESP: Unlabored respiratory effort. Clear to auscultation bilaterally. GI: Nontender/Nondistended, No rebound or guarding. MSK: Tenderness to the right groin with unable to move the right leg secondary to pain. No changes noted anywhere else. No midline spine tenderness. Skin: Warm, Dry. No rashes or lesions. Neuro: Normal Muscle tone, No focal neurological deficits. Psych: Awake, Alert, & Oriented x3. Appropriate mood and affect. Const: Vital Signs, click to edit/add: Vital Signs - 24 hr 06/14/23 17:23 06/14/23 17:41 06/14/23 17:42 Temperature 98.5 F Pulse Rate 142 H 130 H Pulse Rate [Pulse Oximeter] 107 H Respiratory Rate 20 Blood Pressure 149/94 H Blood Pressure [Le ft Upper Arm] 159/87 H Pulse Oximetry 88 76 L 92 Oxygen Delivery Me thod Room Air Oxygen Flow Rate 06/14/23 17:44 06/14/23 17:45 06/14/23 17:52 Temperature Pulse Rate 112 H 113 H Pulse Rate [Pulse Oximeter] Respiratory Rate Blood Pressure 149/115 H Blood Pressure [Le ft Upper Arm] Pulse Oximetry 92 93 93 Oxygen Delivery Me thod Nasal Cannula Oxygen Flow Rate 4 06/14/23 18:00 06/14/23 18:02 06/14/23 18:36 Temperature Pulse Rate 111 H 120 H Pulse Rate [Pulse Oximeter] Respiratory Rate Blood Pressure 159/106 H Blood Pressure [Le ft Upper Arm] Pulse Oximetry 93 90 Oxygen Delivery Me thod Oxygen Flow Rate 06/14/23 18:39 06/14/23 18:42 06/14/23 18:45 Temperature Pulse Rate 111 H 116 H 102 H Pulse Rate [Pulse Oximeter] Respiratory Rate Blood Pressure 152/111 H 180/89 H Blood Pressure [Le ft Upper Arm] Pulse Oximetry 90 95 94 Oxygen Delivery Me thod Oxygen Flow Rate 06/14/23 18:52 06/14/23 19:00 06/14/23 19:02 Temperature Pulse Rate 91 176 H Pulse Rate [Pulse Oximeter] Respiratory Rate Blood Pressure 153/139 H 148/75 H Blood Pressure [Le ft Upper Arm] Pulse Oximetry 79 L 73 L Oxygen Delivery Me thod Oxygen Flow Rate 06/14/23 19:12 06/14/23 19:15 06/14/23 19:21 Temperature Pulse Rate 111 H 118 H 108 H Pulse Rate [Pulse Oximeter] Respiratory Rate Blood Pressure 122/99 H 141/92 H Blood Pressure [Le ft Upper Arm] Pulse Oximetry 92 88 94 Oxygen Delivery Me thod Oxygen Flow Rate 06/14/23 19:30 06/14/23 19:32 06/14/23 19:42 Temperature Pulse Rate 113 H 114 H 97 Pulse Rate [Pulse Oximeter] Respiratory Rate Blood Pressure 131/82 139/98 H Blood Pressure [Le ft Upper Arm] Pulse Oximetry 96 93 96 Oxygen Delivery Me thod Oxygen Flow Rate 06/14/23 19:45 06/14/23 19:52 06/14/23 20:02 Temperature Pulse Rate 101 H 108 H Pulse Rate [Pulse Oximeter] Respiratory Rate Blood Pressure 151/100 H 125/97 H Blood Pressure [Le ft Upper Arm] Pulse Oximetry 96 96 Oxygen Delivery Me thod Oxygen Flow Rate 06/14/23 20:07 06/14/23 20:11 06/14/23 20:15 Temperature Pulse Rate 154 H 94 104 H Pulse Rate [Pulse Oximeter] Respiratory Rate Blood Pressure 127/87 Blood Pressure [Le ft Upper Arm] Pulse Oximetry 80 L 95 95 Oxygen Delivery Me thod Oxygen Flow Rate 06/14/23 20:21 06/14/23 20:22 06/14/23 20:30 Temperature Pulse Rate 112 H 102 H 100 Pulse Rate [Pulse Oximeter] Respiratory Rate Blood Pressure 116/87 Blood Pressure [Le ft Upper Arm] Pulse Oximetry 95 94 94 Oxygen Delivery Me thod Oxygen Flow Rate 06/14/23 20:31 06/14/23 20:41 06/14/23 20:45 Temperature Pulse Rate 126 H 96 108 H Pulse Rate [Pulse Oximeter] Respiratory Rate Blood Pressure 109/87 Blood Pressure [Le ft Upper Arm] Pulse Oximetry 94 95 95 Oxygen Delivery Me thod Oxygen Flow Rate Course Vital Signs Vital signs: Initial Vital Signs Temperature 98.5 F 06/14/23 17:23 Temperature Source Temporal Artery Scan 06/14/23 17:23 Pulse Rate 107 H 06/14/23 17:23 Respiratory Rate 20 06/14/23 17:23 Blood Pressure 159/87 H 06/14/23 17:23 Blood Pressure Mean 111 H 06/14/23 17:23 Blood Pressure Position Supine 06/14/23 17:23 Pulse Oximetry 88 06/14/23 17:23 Oxygen Delivery Method Room Air 06/14/23 17:23 Vital Signs Temperature 98.5 F 06/14/23 17:23 Pulse Rate 107 H 06/14/23 17:23 Respiratory Rate 20 06/14/23 17:23 Blood Pressure 159/87 H 06/14/23 17:23 Pulse Oximetry 88 06/14/23 17:23 Oxygen Delivery Method Room Air 06/14/23 17:23 Temperature 98.5 F 06/14/23 17:23 Pulse Rate 108 H 06/14/23 20:45 Respiratory Rate 20 06/14/23 17:23 Blood Pressure 109/87 06/14/23 20:31 Pulse Oximetry 95 06/14/23 20:45 Oxygen Delivery Method Nasal Cannula 06/14/23 17:44 Oxygen Flow Rate 4 06/14/23 17:44 Medical Decision Making MDM Narrative Medical decision making narrative: Patient is a 3-year-old female presented emergency department after a fall from her chair. She tried to get up when she tripped and fell landing on her right hip. She admits to hitting her head denies losing consciousness. She is brought in by EMS. His [id number]'s in the room with her and states she is acting normally. I spoke to her healthcare POA, Natalie Jones, she states the patient has been doing good while she was getting home health but states since then. One month ago patient has not been taking good care of herself. Patient does have a history of issues with hyponatremia. With the fall will do a head CT and cervical spine CT. We also x-rayed the right hip. No other tenderness noted on exam. Cbc him BMP was a urinalysis ordered for likely pre-surgical labs. EKG also ordered EKG shows no concerning abnormalities. She is in AFib with RVR but does have a notable amount of pain due to the hip fracture in the city not believe it is necessary to further treat her heart rate and will instead try to treat the pain with morphine. At she would see the morphine her oxygenation is tested dropped below bit and had to be placed on oxygen. She is not normally wear oxygen. X- rays of the right hip does show a displaced right hip fracture. Head CT shows and will likely chronic infarct but is new compared to previous exams. Is considering the patient having no neurologic deficits is impossible to know how long this has been there even if it is needed this would not be a thrombolytic candidate. Patient can not receive an MRI in the inpatient setting this not need emergent imaging. Patient has hyponatremia but has been having issues with this is post be on a fluid restriction. Her POA states that the patient is not compliant when she is not being watched and thinks the hyponatremia is likely due to her not following her fluid restriction. I spoke to ortho about her hip fracture. They state that the patient's fractures to angulated in his to complicate to keep in our hospital. Due to that they recommend transferring the patient to a level 1 trauma center. Patient transferred to [facility] and accepted by the ED physician Dr. Hayden. Patient family updated on this plan. They are agreeable. Lab Data Labs: Lab Results 06/14/23 06/14/23 Range/Units 17:35 17:55 WBC 8.59 (4.50-11.00) K/uL RBC 4.74 (4.00-5.20) m/uL Hgb 14.7 (12.0-16.0) gm/dL Hct 44.4 (33.0-51.0) % MCV 94 (80-100) fL MCH 31 (26-34) pg MCHC 33 (32-36) gm/dL RDW Coeff of [place] 12.4 (11.5-15.5) % Plt Count 239 (140-440) K/uL Neut % (Auto) 81.6 H (42.0-72.0) % Lymph % (Auto) 8.6 L (20-44) % [place] % (Auto) 8.5 (0.0-11.0) % Eos % (Auto) 0.6 (0.0-7.0) % Baso % (Auto) 0.5 (0.0-3.0) % Neut # (Auto) 7.00 (1.7-7.0) K/uL Lymph # (Auto) 0.70 L (0.90-2.90) K/uL [place] # (Auto) 0.70 (0.00-0.90) K/UL Eos # (Auto) 0.05 (0.00-0.50) K/uL Baso # (Auto) 0.04 (0.00-0.30) K/uL Abs Immat Gran (auto) 0.02 (0.00-0.30) K/uL Imm/Tot Granulo (auto) 0.2 % Sodium 128 L (135-149) mmol/L Potassium 4.5 (3.6-5.1) mmol/L Chloride 87 L (96-114) mmol/L Carbon Dioxide 35 H (20-32) mmol/L BUN 41 H (7-30) mg/dL Creatinine 0.8 (0.5-1.5) mg/dL Estimated Creat Clear 53.25 Estimated GFR 77 ml/min Glucose 126 H (60-115) mg/dL Calcium 8.5 (8.4-10.6) mg/dL Urine Color Yellow (Yellow) Urine Appearance Clear (Clear) Urine pH 6.5 (5.0-8.5) Ur Specific [place] 1.015 (1.000-1.030) Urine Protein Trace A (Negative) Urine Glucose (UA) Negative (Negative) Urine Ketones Negative (Negative) Urine Blood 1+ A (Negative) Urine Nitrite Negative (Negative) Urine Bilirubin Negative (Negative) Urine Urobilinogen 0.2 (0.2-1.0) Ur Leukocyte Esterase 1+ A (Negative) Urine RBC 2-5 A (0-2) Urine WBC 25-50 A (0-5) Ur Squamous Epith Cells Few (None-Few) Urine Bacteria Many A (None) ECG Data Attestation: I personally reviewed and interpreted this ECG as follows: (Shows AFib with a rate of 101, normal axis, no ST or T-wave abnormalities. Appears similar to previous EKG) Prior ECG tracings: available for review (01/06/2023) Discharge Plan Discharge Clinical Impression: Closed fracture of right hip Qualifiers: Encounter type: initial encounter Qualified Code(s): S72.001A - Fracture of unspecified part of neck of right femur, initial encounter for closed fracture Patient Disposition: Xfer Other Discharge [facility] Condition: Stable Prescriptions: No Action trazodone 50 mg tablet 25 mg PO QHS PRN torsemide 20 mg tablet 60 mg PO QAM Rx Instructions: along with 40mg each evening metoprolol succinate 100 mg tablet extended release 24 hr 150 mg PO DAILY Qty: 135 1RF potassium chloride 10 mEq tablet,ER particles/crystals 10 meq PO TIDWM Qty: 270 0RF calcium carbonate 500 mg calcium (1,250 mg) tablet 1,000 mg PO DAILY Qty: 180 0RF cholecalciferol (vitamin D3) 50 mcg (2,000 unit) capsule 2,000 unit PO DAILY Qty: 180 0RF digoxin 125 mcg (0.125 mg) tablet 125 mcg PO DAILY Qty: 90 4RF rivaroxaban 20 mg tablet 20 mg PO QDAY Qty: 90 3RF Rx Instructions: must administer with evening meal diltiazem HCl [Cartia XT] 180 mg capsule,extended release 24hr 360 mg PO DAILY Qty: 180 0RF lisinopril 40 mg tablet 40 mg PO DAILY Qty: 90 0RF alendronate 70 mg tablet 70 mg PO QWEEK Qty: 12 0RF Rx Instructions: PT TAKES ON MONDAYS Stand Alone Forms: [employer] Info Instructions
[2023-06-14 17:59] LABS: Basophils Absolute Auto 0.04 K/uL (0.00-0.30); Basophils Percent Auto 0.5 % (0.0-3.0); Eosinophils Absolute Auto 0.05 K/uL (0.00-0.50); Eosinophils Percent Auto 0.6 % (0.0-7.0); Hematocrit 44.4 % (33.0-51.0); Hemoglobin* 14.7 gm/dL (12.0-16.0); Immature Granulocytes Abs Auto 0.02 K/uL (0.00-0.30); Immature Granulocytes Pct Auto 0.2 %; Lymphocytes Percent Auto 8.6 % (20-44); Mean Corpuscular HGB Conc 33 gm/dL (32-36); Mean Corpuscular Hemoglobin 31 pg (26-34); Mean Corpuscular Volume 94 fL (80-100); Monocytes Percent Auto 8.5 % (0.0-11.0); Neutrophils Percent Auto 81.6 % (42.0-72.0); Platelet Count* 239 K/uL (140-440); RDW Coefficient of Variation % 12.4 % (11.5-15.5); Red Blood Count 4.74 m/uL (4.00-5.20); White Blood Count* 8.59 K/uL (4.50-11.00)
[2023-06-14 18:02] LABS: Slide Review Reflex No
[2023-06-14 18:02] LABS: Appearance Urine Clear (Clear); Bilirubin Urine Negative (Negative); Blood Urine 1+ (Negative); Color Urine Yellow (Yellow); Glucose Urine Negative (Negative); Ketones Urine Negative (Negative); Leukocyte Esterase Urine 1+ (Negative); Nitrite Urine Negative (Negative); Protein Urine Trace (Negative); Specific Gravity Urine 1.015 (1.000-1.030); Urobilinogen Urine 0.2 (0.2-1.0); pH Urine 6.5 (5.0-8.5)
[2023-06-14 18:09] LABS: Squamous Epithelial Cell Urine Few (None-Few); WBC Urine 25-50 (0-5)
[2023-06-14 18:10] LABS: Bacteria Urine Many
[2023-06-14 18:11] LABS: Chloride* 87 mmol/L (96-114); Sodium* 128 mmol/L (135-149)
[2023-06-14 18:12] LABS: Potassium* 4.5 mmol/L (3.6-5.1)
[2023-06-14 18:14] LABS: Creatinine* 0.8 mg/dL (0.5-1.5); Est. Creatinine Clearance* 53.25; Estimated Glomerular Filt Rate 77 ml/min
[2023-06-14 18:15] LABS: Blood Urea Nitrogen* 41 mg/dL (7-30); Calcium* 8.5 mg/dL (8.4-10.6); Carbon Dioxide* 35 mmol/L (20-32); Glucose* 126 mg/dL (60-115)
[2023-06-14] MEDS: MORPHINE 2 MG/ML inj IVP (20:16)
[2023-06-14] MEDS: HYDROmorphone 0.5 mg/0.5 ml inj IVP ×2 (21:40→21:42)
== END 2023-06-14 22:00 | disposition other institution (70) ==
PROVIDERS: Emergency Provider Student in an Organized Health Care Education/Training Program; PCP Family Medicine
DX: S72.001A Fracture of unspecified part of neck of right femur, initial encounter for closed fracture (principal); W07.XXXA Fall from chair, initial encounter
CPT/HCPCS: 36415; 70450; 71045; 72125; 73502; 80048; 81003; 81015; 85025; 87086; 87186; 93005; 96374; 96375; 96376; 99283; 99285; J1170; J2270

== ENCOUNTER 2023-06-15 21:43 | Outpatient (CLI) | payer MEDICARE, BC, SELFPAY | END 2023-06-15 21:44 | disposition home or self-care (01) | LOC: AMB 06-18 17:52 | PROVIDERS: PCP Family Medicine; Visit Provider Family Medicine | DX: S72.001S Fracture of unspecified part of neck of right femur, sequela (principal) | CPT/HCPCS: A0425; A0427 ==